=== PATIENT | female | born 1985 ===

== ENCOUNTER 2020-07-02 11:57 | Emergency (ER) | payer MEDICARE, OTHER, SELFPAY ==
[2020-07-02] VITALS (7 sets, daily range): BP systolic 149–228; BP diastolic 92–124; PULSE 54–62; RESP 12–18; TEMP 36.9; O2SAT 96–100; BMI 27.4
--- NOTE | ~2020-07-02 | XR_ITS ---
EXAMINATION: XR CHEST CLINICAL INFORMATION: Cough. COMPARISON: Chest x-ray 12/30/2017 TECHNIQUE: Frontal view of the chest was obtained. FINDINGS: No significant abnormality is noted involving the heart, lungs, mediastinum, bony thorax or soft tissues. XR/XR chest 1V IMPRESSION: Unremarkable chest examination.
[2020-07-02 12:23] LABS: Glucose Urine UA NEG (NEG); Leukocyte Esterase Urine NEG (NEG); Nitrite Urine NEG (NEG); PH 6.5 (5.0-8.0); Specific Gravity - Urine <= 1.005 (1.005-1.025); Urine Blood NEG (NEG); Urine Ketones NEG (NEG); Urine Protein NEG (NEG-TRACE)
[2020-07-02 12:27] LABS: Appearance Urine CLEAR; Color Urine YELLOW; UPreg QC Valid YES; Urine Pregnancy NEGATIVE (NEGATIVE)
--- NOTE | 2020-07-02 12:49 | PC.NURSE ---
Pt reports SOB. Lung sounds clear b/l, rr even and unlabored, spo2 wnl, speaks in clear and full sentences. Diogo aware of pt status and vs.
--- NOTE | 2020-07-02 13:15 | ECG_ITS ---
Test Reason : HYPERTENSION Blood Pressure : / mmHG Vent. Rate : 048 BPM Atrial Rate : 048 BPM P-R Int : 158 ms QRS Dur : 080 ms QT Int : 434 ms P-R-T Axes : 055 055 037 degrees QTc Int : 387 ms Sinus bradycardia Otherwise normal ECG When compared with ECG of 15-OCT-2013 09:46, No significant change was found Referred By: Diogo Ornelas Electronically Signed By:NEYDA FERRARI MD
[2020-07-02 13:39] LABS: MANUAL DIFF FLAG NO
[2020-07-02 13:46] LABS: INTERNATIONAL NORM RATIO 1.1 (0.9-1.1); Prothrombin Time 13.4 SEC (10.8-13.0)
[2020-07-02 13:47] LABS: Eosinophils Percent Auto 0.3 % (0-4); Hematocrit 40.4 % (37-47); Hemoglobin 13.4 g/dl (12.0-16.0); Lymphocytes Absolute Auto 2.1 X10*3/uL (1.2-4.9); Lymphocytes Percent Auto 54.1 % (20-40); Mean Corpuscular HGB Conc 33.2 g/dl (31.0-35.0); Mean Corpuscular Hemoglobin 28.8 pg (27.0-33.0); Mean Corpuscular Volume 86.7 fL (80-98); Mean Platelet Volume 10.7 fL (9.4-12.3); Monocytes Absolute Auto 0.3 X10*3/uL (0.1-1.2); Monocytes Percent Auto 7.5 % (2-11); Neutrophils Absolute Auto 1.4 X10*3/uL (2.0-8.3); Neutrophils Percent Auto 37.1 % (45-73); Platelet Count 238 X10*3/uL (160-400); Red Blood Count 4.66 X10*6/uL (4.20-5.50); Red Cell Distribution Width 13.9 % (11.0-16.0); White Blood Count 3.9 X10*3/uL (4.8-10.8)
[2020-07-02 13:49] LABS: Partial Thromboplastin Time 36.7 SEC (24.1-38.0)
[2020-07-02 14:17] LABS: Alanine Aminotransferase 11 U/L (0-31); Albumin Level 4.6 g/dL (3.5-5.0); Alkaline Phosphatase 88 U/L (39-117); Aspartate Amino Transferase 14 U/L (5-31); Bilirubin Total 0.4 mg/dL (0.0-1.0); Blood Urea Nitrogen 7 mg/dL (9-16); Calcium 9.2 mg/dL (8.4-10.2); Creatinine Clr Calc Pharmacy 85.3; Estimated Glomerular Filt Rate > 60; Glucose Random 92 mg/dL (60-115); Total Protein 7.4 g/dL (6.5-8.0)
[2020-07-02 14:29] LABS: Anion Gap 10 (12-20); Carbon Dioxide 29 mmol/L (22-29); Chloride 105 mmol/L (96-108); Sodium 140 mmol/L (135-145)
--- NOTE | 2020-07-02 15:16 | ED_ITS ---
HPI - General Adult General Chief complaint: General Medical Stated complaint: hbp Time Seen by Provider: 07/02/20 12:04 Source: patient Mode of arrival: ambulatory Limitations: no limitations History of Present Illness HPI narrative: Pleasant 35-year-old female with history of hypertension on clonidine and lisinopril she reports to me that she has had a cough that became more productive does she went to her PCP office and had her blood pressure checked there and was elevated systolic 200s over diastolic 110 and she states previous to this a week ago she has had some runny nose and congestion she went to urgent care she was given nasal spray and decongestant for her symptoms as her COVID test at that time was negative. At the primary care doctor office they noted the elevated blood pressure and was advised to come to the ED. patient herself states that she has not been compliant with her blood pressure medication for about a month now because she does not feel they help him any and could be reason why her blood pressure is elevated. States she did have some slight headache but mostly contributed to her cold. She otherwise denies any chest pain, shortness of breath, lower extremity swelling, abdominal pain, nausea vomiting diarrhea. No neck pain or fever. Onset (ago): day(s) Radiation: non-radiation Severity: mild Associated symptoms: denies other symptoms Treatments prior to arrival: none Related Data Previous Rx's Medication Instructions Recorded azithromycin [Zithromax Z-Shar] See Rx Instructions .ROUTE 07/02/20 .COMPLEX #6 tab Allergies Allergy/AdvReac Type Severity Reaction Status Date / Time morphine [MORPHINE] Allergy Unknown HIVES Unverified 01/08/20 15:30 Review of Systems Review of Systems: Constitutional: No Weight loss, No Fever, No Chills, No Night Sweats, No Fatigue, No Malaise ENT/Mouth: No Hearing loss, No Ear Pain, No Nasal Congestion, No Sinus Pain, No Hoarseness, No sore throat, No Rhinorrhea, No Swallowing Difficulty Eyes: No Eye Pain, No Swelling, No Redness, No Foreign Body, No Discharge, No Vision Changes Cardiovascular: No Chest Pain, No SOB, No Dyspnea on Exertion, No Orthopnea, No Edema, No Palpitations Respiratory: + Cough, No Sputum, No Wheezing, No Smoke Exposure, No Dyspnea Gastrointestinal: No Nausea, No Vomiting, No Diarrhea, No Constipation, No abdominal Pain, No Hematochezia, No Melena Genitourinary: No Dysuria, No Urinary Frequency, No Hematuria, No Urinary Incontinence, No Urgency, No Flank Pain, No Urinary Flow Changes, No Hesitancy Musculoskeletal: No joint pain, No Myalgias, No Joint Swelling Skin: No Skin Lesions, No rash Neuro: No Weakness, No Numbness, No Paresthesias, No Loss of Consciousness, No Dizziness, No Headache Psych: No Social Issues Heme/Lymph: No Bruising, No Bleeding,No Lymphadenopathy Endocrine: No Polyuria, No Polydipsia, No Temperature Intolerance [facility] Past Medical History Medical History HTN (hypertension) Social History Social History Alcohol intake: never Smoking Status: Never smoker Smoked in Last 30 Days: No Substance Use Type: Marijuana Substance Use Frequency: Occasionally Advance Directives: Yes Advance Directives on File: Yes Advance Directives Date on File: 07/02/20 Physical Exam Vital Signs: Vital Signs: Last Vital Signs Temp 98.4 F 07/02/20 12:07 Pulse 55 07/02/20 15:17 Resp 12 07/02/20 15:17 BP 158/92 H 07/02/20 15:17 Pulse Ox 98 07/02/20 15:17 Body Mass Index 27.4 Reviewed Const: General: cooperative and healthy appearing; No acute distress or intoxicated appearing Nutritional Appearance: average body habitus Orientation/consciousness: patient oriented x3 HENMT: Head: Yes normal to inspection Ears: hearing grossly normal bilaterally Eyes: General: appearance normal, both eyes and all related structures Visual Chery: normal visual chery by confrontation Neck: Neck: Yes normal visual inspection, No positive Brudzinski's sign, No positive Kernig's sign and No tender Thyroid: Thyroid normal Chest: Chest palpation & inspection: normal inspection of the chest Resp: Effort & Inspection: normal respiratory effort Auscultation: clear to auscultation bilaterally Cardio: Jugular venous distension: no JVD Rhythm: regular rhythm Heart sounds: S1 normal heart sound present and S2 normal heart sound present GI: Inspection: Yes normal to inspection Palpation (GI): Soft to palpation Percussion: Yes normal to percussion Auscultation: normal bowel sounds : General: Yes no CVA tenderness Back/Spine/Pelvis: Back: no CVA tenderness Skin: General skin exam: no rashes or lesions noted Neuro: General: patient oriented x3 Extrem: General: Yes normal to inspection Course Course Course Narrative: Reevaluation(s) Reevaluation #1: Initial blood pressure on arrival 220/124 however she has no complaints of headache or any other complaints and blood pressure on recheck without intervention was 158/92 and subsequently same readings. Lab work otherwise stable, repeat blood pressure stable as. Chest x-ray negative COVID swab negative. She does have productive cough going on for 1 week will give her Z-Shar she already has albuterol inhaler. Advised to stop using nasal decongestants and cough medicine as this can also increase her blood pressure. She otherwise feels comfortable in no acute distress no complaints of pain or discomfort. She will resume her lisinopril and clonidine as previously prescribed by her primary care doctor she has 1 refill left on these and will keep a blood pressure log and follow up with her primary care doctor. Medical Decision Making Lab Data Result diagrams: 07/02/20 13:32 07/02/20 13:32 Labs: Lab Results 07/02/20 07/02/20 07/02/20 Range/Units 12:04 12:04 13:32 WBC 3.9 L (4.8-10.8) X10*3/uL RBC 4.66 (4.20-5.50) X10*6/uL Hgb 13.4 (12.0-16.0) g/dl Hct 40.4 (37-47) % MCV 86.7 (80-98) fL MCH 28.8 (27.0-33.0) pg MCHC 33.2 (31.0-35.0) g/dl RDW 13.9 (11.0-16.0) % Plt Count 238 (160-400) X10*3/uL MPV 10.7 (9.4-12.3) fL Immature Gran % (Auto) 0.0 (0.0-0.4) % Neut % (Auto) 37.1 L (45-73) % Lymph % (Auto) 54.1 H (20-40) % [place] % (Auto) 7.5 (2-11) % Eos % (Auto) 0.3 (0-4) % Baso % (Auto) 1.0 (0-2) % Lymph # (Auto) 2.1 (1.2-4.9) X10*3/uL [place] # (Auto) 0.3 (0.1-1.2) X10*3/uL Eos # (Auto) 0.0 (0.0-0.4) X10*3/uL Baso # (Auto) 0.0 (0.0-0.2) X10*3/uL Abs Immat Gran (auto) 0.00 (0.00-0.03) X10*3/uL Absolute Neuts (auto) 1.4 L (2.0-8.3) X10*3/uL Absolute Nucleated RBC 0.000 (0.0-0.012) X10*3/uL Nucleated RBC % (auto) 0.0 (0.0-0.2) /100WBC PT (10.8-13.0) SEC INR (0.9-1.1) APTT (24.1-38.0) SEC Sodium (135-145) mmol/L Potassium (3.3-5.1) mmol/L Chloride (96-108) mmol/L Carbon Dioxide (22-29) mmol/L Anion Gap (12-20) BUN (9-16) mg/dL Creatinine (0.5-1.4) mg/dL Estim Creat Clear Calc Estimated GFR Random Glucose (60-115) mg/dL Calcium (8.4-10.2) mg/dL Total Bilirubin (0.0-1.0) mg/dL AST (5-31) U/L ALT (0-31) U/L Alkaline Phosphatase (39-117) U/L Total Protein (6.5-8.0) g/dL Albumin (3.5-5.0) g/dL Urine Color YELLOW Urine Appearance CLEAR Urine pH 6.5 (5.0-8.0) Ur Specific [place] <= 1.005 (1.005-1.025) Urine Protein NEG (NEG-TRACE) MG/DL Urine Glucose (UA) NEG (NEG) MG/DL Urine Ketones NEG (NEG) MG/DL Urine Blood NEG (NEG) Urine Nitrite NEG (NEG) Ur Leukocyte Esterase NEG (NEG) Urine Test NEGATIVE (NEGATIVE) 03/12/21 03/12/21 Range/Units 13:32 13:32 WBC (4.8-10.8) X10*3/uL RBC (4.20-5.50) X10*6/uL Hgb (12.0-16.0) g/dl Hct (37-47) % MCV (80-98) fL MCH (27.0-33.0) pg MCHC (31.0-35.0) g/dl RDW (11.0-16.0) % Plt Count (160-400) X10*3/uL MPV (9.4-12.3) fL Immature Gran % (Auto) (0.0-0.4) % Neut % (Auto) (45-73) % Lymph % (Auto) (20-40) % [place] % (Auto) (2-11) % Eos % (Auto) (0-4) % Baso % (Auto) (0-2) % Lymph # (Auto) (1.2-4.9) X10*3/uL [place] # (Auto) (0.1-1.2) X10*3/uL Eos # (Auto) (0.0-0.4) X10*3/uL Baso # (Auto) (0.0-0.2) X10*3/uL Abs Immat Gran (auto) (0.00-0.03) X10*3/uL Absolute Neuts (auto) (2.0-8.3) X10*3/uL Absolute Nucleated RBC (0.0-0.012) X10*3/uL Nucleated RBC % (auto) (0.0-0.2) /100WBC PT 13.4 H (10.8-13.0) SEC INR 1.1 (0.9-1.1) APTT 36.7 (24.1-38.0) SEC Sodium 140 (135-145) mmol/L Potassium 4.0 (3.3-5.1) mmol/L Chloride 105 (96-108) mmol/L Carbon Dioxide 29 (22-29) mmol/L Anion Gap 10 L (12-20) BUN 7 L (9-16) mg/dL Creatinine 0.89 (0.5-1.4) mg/dL Estim Creat Clear Calc 85.3 Estimated GFR > 60 Random Glucose 92 (60-115) mg/dL Calcium 9.2 (8.4-10.2) mg/dL Total Bilirubin 0.4 (0.0-1.0) mg/dL AST 14 (5-31) U/L ALT 11 (0-31) U/L Alkaline Phosphatase 88 (39-117) U/L Total Protein 7.4 (6.5-8.0) g/dL Albumin 4.6 (3.5-5.0) g/dL Urine Color Urine Appearance Urine pH (5.0-8.0) Ur Specific [place] (1.005-1.025) Urine Protein (NEG-TRACE) MG/DL Urine Glucose (UA) (NEG) MG/DL Urine Ketones (NEG) MG/DL Urine Blood (NEG) Urine Nitrite (NEG) Ur Leukocyte Esterase (NEG) Urine Test (NEGATIVE) Imaging Data Chest x-ray: Radiologist's impression: [address] [id number] ReportSigned Patient: Monster iVllafana#: [id number]: 1985Acct:[id number]/Sex: 35 / FADM Date: 07/02/20Loc: EDAttending Dr: Ordering Physician: Diogo Ornelas NP Date of Service: 07/02/20 Procedure(s): XR chest 1V Accession Number(s): [id number] cc: Diogo Ornelas NP~ EXAMINATION: XR CHEST CLINICAL INFORMATION: Cough. COMPARISON: Chest x-ray 12/30/2017 TECHNIQUE: Frontal view of the chest was obtained. FINDINGS: No significant abnormality is noted involving the heart, lungs, mediastinum, bony thorax or soft tissues. XR/XR chest 1V IMPRESSION: Unremarkable chest examination. 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[facility] [place] Data Interpretation: Sinus bradycardia Rate 48 Otherwise normal ECG When compared with ECG of 15-OCT-2013 09:46, No significant change was found Discharge Plan Discharge Clinical Impression: Hypertension, Bronchitis Patient Disposition: Home, Self-Care Instructions: Acute Bronchitis (ED), Hypertension (ED), Mediterranean Diet (DC) Additional Instructions: Your workup was overall stable, chest x-ray negative, COVID test negative Drink plenty of fluids Well-balanced diet Start taking your blood pressure medication as prescribed as certain decongestants can increase your blood pressure Keep a blood pressure log Do not use [id number] cold medicine Return if any concerns or worsening symptoms Follow-up with her primary care doctor in 1 week for recheck Thank you Prescriptions: New azithromycin [Zithromax Z-Shar] 250 mg tablet See Rx Instructions .ROUTE .COMPLEX Qty: 6 RF: 0 Referrals: Linda Fausitn MD [Primary Care Provider] - 5 days
== END 2020-07-02 15:52 | disposition home or self-care (01) ==
PROVIDERS: Nurse Practitioner Primary Care; Emergency Provider Emergency Medicine Emergency Medical Services; PCP Student in an Organized Health Care Education/Training Program
DX: J20.9 Acute bronchitis, unspecified (principal); I10 Essential (primary) hypertension; F12.90 Cannabis use, unspecified, uncomplicated
CPT/HCPCS: 36415; 71045; 80053; 81003; 81025; 85025; 85610; 85730; 93005; 99283; 99284

== ENCOUNTER 2020-07-23 10:20 | Outpatient (REF) | payer MEDICARE, OTHER, SELFPAY ==
[2020-07-23 14:26] LABS: SARS COV2 PCR INHOUSE NEGATIVE (Negative)
== END 2020-07-23 10:21 | disposition home or self-care (01) ==
LOC: HO.LAB 10:20
PROVIDERS: Visit Provider Internal Medicine
DX: Z20.822 Contact with and (suspected) exposure to COVID-19 (principal)
CPT/HCPCS: C9803; U0003

== ENCOUNTER 2020-08-12 16:03 | Outpatient (REF) | payer MEDICARE, OTHER, SELFPAY ==
--- NOTE | ~2020-08-12 | US_ITS ---
EXAMINATION:US pelvic and transvaginal CLINICAL INFORMATION: Reason for Exam DYSPAREUNIA, FREQ AND EXCESSIVE MENSES COMPARISON: No priors available. LMP: July 11 FINDINGS: UTERUS: The uterus is anteverted. Size: 8 x 3.2 x 4.4 cm. Uterine mass: There is no uterine mass. Cervix: There are nabothian cysts Otherwise Grossly unremarkable. Endometrium: No ultrasound evidence of endometrial lesion. endometrial thickness measures 1.1 cm hypertrophic ADNEXA: Normal Right ovary: Normal in size. Left ovary: Mildly complex cystic structure in the left ovary measure up to 4.4 x 3.9 x 5.1 cm, there is septation. Doppler exam: Normal Doppler flow identified in both ovaries. FREE FLUID: Trace amount of fluid around the ovaries likely physiologic. OTHER FINDINGS: None US/US pelvic and transvaginal IMPRESSION: Mildly complex septated cyst left ovary 5.1 cm. Follow-up recommended. Ultrasound otherwise normal. In women who undergo transvaginal ultrasound (TVUS) imaging of adnexal masses, benign ovarian and other adnexal cysts are commonly detected, leading to follow-up sonographic evaluation and, often, patient anxiety. In 2010 the Society of Radiologists in Ultrasound convened a panel of gynecologists, radiologists, and pathologists to develop a consensus statement encompassing characteristic imaging findings for various adnexal cysts as well as follow-up recommendations. Highlights of the statement are as follows: Simple cysts (reproductive age) * Follicles <3 cm in diameter are considered normal. * Cysts <5 cm: follow-up not required. * Cysts >5 to <7 cm: annual follow-up recommended. Simple cysts (postmenopausal) * Cysts <1 cm are considered clinically unimportant. * Simple cysts of any size are highly likely to be benign, but annual sonographic follow-up of cysts >1 cm is reasonable. Simple cysts >7 cm (any age) * Further imaging (e.g., magnetic resonance imaging) or surgical evaluation should be considered. Thin-walled cysts with single thin septation or focal calcification in mckenzie * Follow-up similar to that for simple cysts based on size and menopausal status. Hemorrhagic cysts (reproductive age) * Cysts <5 cm: No follow-up needed. * Cysts >5 cm: Follow-up in 6 to 12 weeks to ensure resolution. Hemorrhagic cysts (early postmenopause) * Any size: Follow-up in 6 to 12 weeks to ensure resolution. Hemorrhagic cysts (later postmenopausal years) * Any size: Consider surgical evaluation. Endometriomae (any age) * Follow-up in 6 to 12 weeks; if not surgically resected at that time, follow annually. Dermoids (any age) * If not surgically resected, follow annually to ensure stability. Hydrosalpinxes or peritoneal cysts (any age) * Individualized follow-up as clinically indicated. Cysts with characteristics suspicious for malignancy (any age) * If thick (>3 mm) irregular septations or nodule with Doppler-detected blood flow, consider surgical evaluation.
== END 2020-08-12 16:04 | disposition home or self-care (01) ==
LOC: HO.US 16:03
PROVIDERS: Visit Provider Advanced Practice Midwife
DX: N92.1 Excessive and frequent menstruation with irregular cycle (principal); N94.10 Unspecified dyspareunia
CPT/HCPCS: 76830; 76856

== ENCOUNTER → 2020-08-26 09:37 | Outpatient (BNVA) | payer MEDICARE, OTHER, SELFPAY | PROVIDERS: PCP Student in an Organized Health Care Education/Training Program; Visit Provider Internal Medicine Cardiovascular Disease | DX: I10 Essential (primary) hypertension (principal) | CPT/HCPCS: 93005; 99202 ==

== ENCOUNTER 2020-09-02 15:40 | Outpatient (REF) | payer MEDICARE, SELFPAY ==
--- NOTE | ~2020-09-02 | US_ITS ---
EXAMINATION: US PELVIC AND TRANSVAGINAL CLINICAL INFORMATION: Left ovarian cyst. COMPARISON: Previous exam most recent July 2020 TECHNIQUE: Transabdominal and transvaginal pelvic ultrasound was performed. Transvaginal exam was performed for better visualization of the uterus and ovaries. FINDINGS: The uterus is anteverted and measures 7.4 x 3.1 x 4.9 cm in dimension. No focal uterine lesion is seen. There are nabothian cysts in the cervix. The ovaries are slightly enlarged. The right ovary measures 3.7 x 3.7 x 2.1 cm, volume 15 mL and the left ovary measures 3.8 x 3.2 x 2.7 cm, volume 17 mL. The previously identified 4 x 5 cm complex left ovarian cyst on 08/12/2020 exam is no longer seen. There are multiple small peripheral cysts or follicles seen in the ovaries questionable for polycystic ovarian syndrome. There is no fluid in the pelvis. US/US pelvic and transvaginal IMPRESSION: Resolved 4 x 5 cm complex left ovarian cyst from July 2020 exam. The ovaries are slightly enlarged with small peripheral cysts or follicles questionable for polycystic ovarian syndrome.
== END 2020-09-02 15:41 | disposition home or self-care (01) ==
LOC: HO.US 15:40
PROVIDERS: PCP Student in an Organized Health Care Education/Training Program; Visit Provider Advanced Practice Midwife
DX: N83.292 Other ovarian cyst, left side (principal)
CPT/HCPCS: 76830; 76856

== ENCOUNTER 2020-10-15 12:45 | Outpatient (REF) | payer MEDICARE, OTHER, SELFPAY ==
[2020-10-15 14:04] LABS: Anion Gap 11 (12-20); Blood Urea Nitrogen 9 mg/dL (9-16); Calcium 9.4 mg/dL (8.4-10.2); Carbon Dioxide 28 mmol/L (22-29); Chloride 108 mmol/L (96-108); Estimated Glomerular Filt Rate > 60; Glucose Random 89 mg/dL (60-115); Potassium 3.9 mmol/L (3.3-5.1); Sodium 143 mmol/L (135-145)
[2020-10-20 07:11] LABS: Metanephrine, Free 30 pg/mL (<=57); Normetanephrines, Free 130 pg/mL (<=148); Total Metanephrine, Free 160 pg/mL (<=205)
== END 2020-10-15 12:46 | disposition home or self-care (01) ==
LOC: HO.LAB 12:45
PROVIDERS: PCP Student in an Organized Health Care Education/Training Program; Visit Provider Internal Medicine Cardiovascular Disease
DX: I10 Essential (primary) hypertension (principal)
CPT/HCPCS: 36415; 80048; 82088; 83835

== ENCOUNTER → 2020-10-18 09:57 | Outpatient (REF) | payer MEDICARE, OTHER, SELFPAY ==
--- NOTE | 2020-10-18 10:03 | CA_ITS ---
Transthoracic Echocardiogram Patient (Last, First, Middle): Yesenia Villafana, Gender: Female Date of : 1985 Age: 35 Procedure Date: 10/18/2020 Procedure Type: Transthoracic Echocardiogram Location: OP Height: 162.56 cm Weight: 72.58 kg BSA: 1.78 m2 Heart Rate: bpm BP: 130 / 90 mmHg Pharmacy Technician Inpatient: ALEXIS Ivory MD: Yvan Leyva MD Lodging Facilities Attendant: Balwinder Henry MD Symptoms: I10 - Essential (primary) hypertension Study Quality: Good ECG Rhythm: Sinus Conclusions: - 1.Normal LV systolic and diastolic function 2. Mildly dilated left atrium 3. Normal cardiac valvular Doppler 4. Normal RV systolic pressure 5. No pericardial effusion Findings Left Ventricle Normal left ventricular size, thickness, and systolic function. The visually estimated ejection fraction is between 60-65%. Spectral Doppler is indicative of a normal filling pattern. Right Ventricle Normal right ventricular cavity size and systolic function. Atria The left atrium is mildly dilated. There is no evidence of interatrial shunt. The right atrium is normal in size. Aortic Valve Normal aortic valve structure and function. There is no aortic valve stenosis. There is no aortic valve regurgitation. Mitral Valve Normal mitral valve structure and function. There is trace mitral valve regurgitation. There is no mitral valve stenosis. Pulmonic Valve The pulmonic valve is likely normal. There is trace pulmonic valve regurgitation. Tricuspid Valve Normal tricuspid valve structure. There is trace tricuspid valve regurgitation. The right ventricular systolic pressure is normal. The right ventricular systolic pressure is 17 mmHg. Normal right atrial pressure. There is no evidence of pulmonary hypertension. Great Vessels All visible segments of the aorta are normal in size. The pulmonary artery was not well visualized. Venous The inferior vena cava is normal in size and collapses greater than 50% with inspiration. Pericardium/Pleural There is no evidence of pericardial effusion. Prior Study Comparison No prior study available for comparison. Measurements 2D Linear Measurements IVSd: 0.99 0.6-0.9/0.6-1.0 cm LVIDd: 4.65 3.9-5.3/4.2-5.9 cm LVIDd Index: 2.61 2.4-3.2/2.2-3.1 cm/m2 LVIDs: 2.99 2.0-3.6 cm LVPWd: 0.87 0.7-1.1 cm Ao Root: 3.00 2.1-3.5 cm LA Diam: 3.80 2.7-3.8/3.0-4.0 cm LAIDs Index: 2.13 1.5-2.3 cm/m2 LV Mass: 182.63 67-162/88-224 g LV Mass Index: 102.60 43-95/49-115 g/m2 LVOT Diam: 2.10 3.0+(-)1.3 cm Mitral Valve MV Pk E: 0.75 MV PK A: 0.53 MV Decel Time: 356.00 E/A: 1.40 E'Lateral: 14.80 E'Medial: 10.20 E/E' Med: 7.30 E/E' Lat: 5.00 PHT: 104.00 MVA PHT: 2.12 Decel [place]: 2.10 Aortic Valve AoV Pk Claus: 1.46 AoV Mn Claus: 0.96 AoV VTI: 0.32 AoV Pk Grad: 9.00 Aov Mn Grad: 4.00 KATHRYN Cont.VTI: 2.72 LVOT LVOT Pk Claus: 1.04 LVOT Mn Claus: 0.72 LVOT VTI: 0.25 LVOT Pk Grad: 4.00 LVOT Mn Grad: 2.00 LVOT Diam: 2.10 LVOT Area: 3.46 Diastolic Function MV Pk E: 0.75 MV Pk A: 0.53 E/A: 1.40 E'Medial: 10.20 E/E' Med: 7.30 E' Laterial: 14.80 E/E' Lat: 5.00 Tricuspid Valve TR Pk Claus: 1.90 TR Pk Grad: 14.00 RA Press: 3.00 RVSP: 17.00 Great Vessels Aorta Ao Root-2D: 3.00 2.0-3.7 cm Ao Asc: 3.20 2.1-3.4 cm Ao Arch: 2.70 Updated in Other Vendor System with Status of Final Balwinder Henry MD electronically signed on 10/18/2020 11:38:37 AM with status of Final
== END ==
LOC: HO.CARD 09:57
PROVIDERS: Visit Provider Internal Medicine Cardiovascular Disease
DX: I10 Essential (primary) hypertension (principal)
CPT/HCPCS: 93306

== ENCOUNTER → 2020-11-17 15:53 | Outpatient (BNVA) | payer MEDICARE, OTHER, SELFPAY | PROVIDERS: PCP Student in an Organized Health Care Education/Training Program; Visit Provider Internal Medicine Cardiovascular Disease | DX: I10 Essential (primary) hypertension (principal); Z79.899 Other long term (current) drug therapy | CPT/HCPCS: 99212 ==

== ENCOUNTER 2021-02-22 04:20 | Emergency (ER) | payer MEDICARE, OTHER, SELFPAY ==
--- NOTE | ~2021-02-22 | XR_ITS ---
EXAMINATION: X-RAY LEFT HAND AND LEFT WRIST CLINICAL INFORMATION: Pain, status post fall. COMPARISON: No similar priors. TECHNIQUE: 4 views of the left hand/wrist were obtained. FINDINGS: No evidence of acute fractures or malalignment. Joint spaces are preserved. Carpal rows are maintained. The scapholunate interval appears within normal limits. On the navicular view, no definite fractures are visualized within the scaphoid. No unexpected radiopaque foreign bodies. XR/XR hand wrist LT IMPRESSION: No acute fractures or malalignment.
--- NOTE | ~2021-02-22 | XR_ITS ---
EXAMINATION: X-RAY RIGHT FOREARM X-RAY RIGHT WRIST CLINICAL INFORMATION: Status post fall with pain. COMPARISON: No similar priors. TECHNIQUE: 2 views of the right forearm and 2 views of the right wrist were obtained. FINDINGS: Right forearm: No evidence of acute fractures or malalignment. Joint spaces are preserved. No joint effusion. No unexpected radiopaque foreign bodies. Right wrist: No evidence of acute fractures or malalignment. On the navicular view, no discrete fractures across the scaphoid are identified. Carpal row alignment is preserved. The scapholunate interval is maintained. No unexpected radiopaque foreign bodies. XR/XR forearm RT 2V IMPRESSION: No acute fractures or malalignment within the right forearm nor right wrist.
--- NOTE | ~2021-02-22 | CT_ITS ---
EXAMINATION: CT HEAD WITHOUT CONTRAST CLINICAL INFORMATION: Headache. Diagnosed with bleed on past Sunday now with headache. COMPARISON: 02/20/2021. TECHNIQUE: Contiguous axial imaging was performed from the skull base to vertex without intravenous administration of contrast. This CT examination was performed using dose optimization techniques as appropriate, variously including the following: *Automated exposure control *Adjustment of mA and/or kV according to patient size (this includes techniques or standardized protocols for targeted exams where dose is matched to indication/reason for exam; i.e. extremities or head) *Use of iterative reconstruction technique DLP: 695 mGy-cm FINDINGS: Again seen are foci of intraparenchymal hemorrhage in the left inferior frontal lobe measuring up to edema edge appears slightly increased as compared to prior. No trace left frontal subdural hematoma is again suspected, unchanged as compared to prior. No new parenchymal hemorrhage or new extra-axial blood products are identified. No change in surrounding mass effect effect. No midline shift is seen. Maya to white matter differentiation is well preserved. The ventricles are normal in size. As seen best on coronal images, there is a very subtle fracture of the left orbital roof with a 7 x 8 mm bone fragment which is minimally displaced. Left orbit is otherwise unremarkable. No additional fractures are identified. The mastoid air cells and visualized portions of the paranasal sinuses are well aerated. CT/CT head/brain wo con IMPRESSION: 1. No significant change in the intracranial hemorrhage at the left inferior frontal lobe. Surrounding edema appears slightly increased as compared to prior without other findings of new mass effect or midline shift. No new intraparenchymal hemorrhage. 2. Unchanged subtle fracture of the left orbital roof underlying the aforementioned intraparenchymal hematoma.
--- NOTE | ~2021-02-22 | XR_ITS ---
EXAMINATION: X-RAY RIGHT FOREARM X-RAY RIGHT WRIST CLINICAL INFORMATION: Status post fall with pain. COMPARISON: No similar priors. TECHNIQUE: 2 views of the right forearm and 2 views of the right wrist were obtained. FINDINGS: Right forearm: No evidence of acute fractures or malalignment. Joint spaces are preserved. No joint effusion. No unexpected radiopaque foreign bodies. Right wrist: No evidence of acute fractures or malalignment. On the navicular view, no discrete fractures across the scaphoid are identified. Carpal row alignment is preserved. The scapholunate interval is maintained. No unexpected radiopaque foreign bodies. XR/XR wrist RT min 3V IMPRESSION: No acute fractures or malalignment within the right forearm nor right wrist.
[2021-02-22 04:22] VITALS: BP 155/95; PULSE 53; RESP 18; TEMP 36.6; O2SAT 99; BMI 27.4
--- NOTE | 2021-02-22 04:49 | ECG_ITS ---
Test Reason : SYNCOPE Blood Pressure : / mmHG Vent. Rate : 052 BPM Atrial Rate : 052 BPM P-R Int : 146 ms QRS Dur : 084 ms QT Int : 428 ms P-R-T Axes : 042 035 022 degrees QTc Int : 398 ms Sinus bradycardia Nonspecific T wave abnormality Abnormal ECG When compared with ECG of 02-JUL-2020 13:33, Nonspecific T wave abnormality, worse in Anterior leads Referred By: Bridget Levine Electronically Signed By:ÁNGEL BLANKENSHIP MD
[2021-02-22 05:13] LABS: Basophils Percent Auto 0.7 % (0-2); Eosinophils Percent Auto 0.4 % (0-4); Hematocrit 40.2 % (37.0-47.0); Hemoglobin 13.6 g/dl (12.0-16.0); Imm Gran Abs Auto 0.02 X10*3/uL (0.00-0.03); Imm Gran Pct Auto 0.4 % (0.0-0.4); Lymphocytes Absolute Auto 2.3 X10*3/uL (1.2-4.9); Lymphocytes Percent Auto 43.7 % (20-40); MANUAL DIFF FLAG NO; Mean Corpuscular HGB Conc 33.8 g/dl (31.0-35.0); Mean Corpuscular Hemoglobin 29.3 pg (27.0-33.0); Mean Corpuscular Volume 86.6 fL (80.0-98.0); Mean Platelet Volume 10.3 fL (9.4-12.3); Monocytes Absolute Auto 0.4 X10*3/uL (0.1-1.2); Monocytes Percent Auto 7.7 % (2-11); Neutrophils Absolute Auto 2.52 x10*3/uL (2.0-8.3); Neutrophils Percent Auto 47.1 % (45-73); Platelet Count 279 X10*3/uL (160-400); Red Blood Count 4.64 X10*6/uL (4.20-5.50); Red Cell Distribution Width 14.2 % (11.0-16.0); White Blood Count 5.4 X10*3/uL (4.8-10.8)
[2021-02-22 05:18] LABS: INTERNATIONAL NORM RATIO 1.1 (0.9-1.1); Prothrombin Time 12.3 SEC (9.9-13.0)
[2021-02-22 05:31] LABS: Alanine Aminotransferase 6 U/L (0-31); Albumin Level 4.6 g/dL (3.5-5.0); Alkaline Phosphatase 90 U/L (39-117); Anion Gap 14 (12-20); Aspartate Amino Transferase 14 U/L (5-31); Bilirubin Total 0.6 mg/dL (0.0-1.0); Blood Urea Nitrogen 13 mg/dL (9-16); Calcium 9.4 mg/dL (8.4-10.2); Carbon Dioxide 23 mmol/L (22-29); Chloride 107 mmol/L (96-108); Creatinine Clr Calc Pharmacy 80.8; Estimated Glomerular Filt Rate > 60; Glucose Random 107 mg/dL (60-115); Sodium 140 mmol/L (135-145); Total Protein 7.8 g/dL (6.5-8.0)
[2021-02-22 05:34] LABS: Troponin-I High Sensitivity < 3.5 ng/L (<3.5-17.0)
--- NOTE | 2021-02-22 05:49 | ED.GENADULT ---
HPI - General Adult General Chief complaint: Neck Pain/Injury Stated complaint: Multiple complaints Time Seen by Provider: 02/22/21 04:48 Source: patient Mode of arrival: ambulatory History of Present Illness HPI narrative: 36-year-old female who presents with headache, bilateral arm pain, neck pain and reports nausea as well as some mild dizziness. The symptoms are in the context of her recent syncopal episode that she sustained on Sunday with loss of consciousness and head strike and worked up at . At the time of her workup she was informed that she had a small ?brain bleed? that she was provided an outpatient appointment for on 03/14. Patient states that she has since had arm pain at the right shoulder/right forearm/left wrist. Related Data Home Medications Medication Instructions Recorded Confirmed amlodipine 10 mg tablet 5 mg PO BID tab 08/27/20 11/17/20 Previous Rx's Medication Instructions Recorded labetalol 100 mg tablet 100 mg PO BID #1 tab 08/27/20 cyclobenzaprine 10 mg tablet 10 mg PO BEDTIME PRN #3 tab 02/22/21 Allergies Allergy/AdvReac Type Severity Reaction Status Date / Time morphine [MORPHINE] Allergy Unknown HIVES Verified 11/17/20 15:58 Review of Systems Review of Systems: Pertinent positives and negatives as stated in HPI 10 point review of systems is otherwise negative. [facility] Past Medical History Source: nursing notes reviewed Medical History HTN (hypertension) Family History Family History Mother HTN (hypertension) Father HTN (hypertension) Diabetes Social History Social History Alcohol intake: never Patient Tobacco Use Status: Never used Tobacco Substance Use Type: Marijuana Advance Directives: Yes Advance Directives on File: Yes Advance Directives Date on File: 07/02/20 Patient : No Physical Exam Vital Signs: Vital Signs: Last Vital Signs Temp 98.2 F 02/22/21 07:20 Pulse 54 02/22/21 09:08 Resp 16 02/22/21 09:08 BP 162/97 H 02/22/21 09:08 Pulse Ox 97 02/22/21 09:08 Body Mass Index 27.4 VITAL SIGNS: Reviewed. GENERAL: Well developed, well nourished, in no acute distress. HEAD: Normocephalic/atraumatic EYES: PERRLA, EOMI, ecchymosis of the left upper lid consistent fall and underlying orbital fracture, no palsies noted OROPHARYNX: no oral lesions noted, posterior pharynx clear LUNGS: Normal breath sounds. No adventitious sounds or accessory muscle use. SpO2<97> CARDIOVASCULAR: Regular rate and rhythm without noted murmurs ABDOMEN: Soft, non-tender, non-distended with bowel sounds. MUSCULOSKELETAL: No tenderness, deformities, or effusions noted on gross inspection. EXTREMITIES: No cyanosis, clubbing or edema, but patient complained of pain on palpation over left wrist and right forearm without observed deformity SKIN: Inspection of the skin reveals no rashes NEUROLOGIC: Alert and oriented x 4. Strength and sensation to light touch were grossly intact x 4, no focal deficits noted Course Course Course Narrative: 36-year-old female with longstanding history ?fainting episodes? as per patient who sustained a fall with LOC, intracranial bleed as well as left orbital fracture. Patient is nonfocal at this time and complaints bilateral arm pain have been resolved with combination analgesics as well as a lidocaine patch to the right shoulder and denies any numbness/tingling/weakness to either upper extremity. Patient is otherwise discharged home in stable condition and has appropriate neurology follow-up on 03/14. All results and findings discussed with patient at bedside. Medical Decision Making Lab Data Result diagrams: 02/22/21 05:06 02/22/21 05:06 Labs: Lab Results 02/22/21 02/22/21 02/22/21 Range/Units 05:06 05:06 05:06 WBC 5.4 (4.8-10.8) X10*3/uL RBC 4.64 (4.20-5.50) X10*6/uL Hgb 13.6 (12.0-16.0) g/dl Hct 40.2 (37.0-47.0) % MCV 86.6 (80.0-98.0) fL MCH 29.3 (27.0-33.0) pg MCHC 33.8 (31.0-35.0) g/dl RDW 14.2 (11.0-16.0) % Plt Count 279 (160-400) X10*3/uL MPV 10.3 (9.4-12.3) fL Immature Gran % (Auto) 0.4 (0.0-0.4) % Neut % (Auto) 47.1 (45-73) % Lymph % (Auto) 43.7 H (20-40) % [place] % (Auto) 7.7 (2-11) % Eos % (Auto) 0.4 (0-4) % Baso % (Auto) 0.7 (0-2) % Lymph # (Auto) 2.3 (1.2-4.9) X10*3/uL [place] # (Auto) 0.4 (0.1-1.2) X10*3/uL Eos # (Auto) 0.0 (0.0-0.4) X10*3/uL Baso # (Auto) 0.0 (0.0-0.2) X10*3/uL Abs Immat Gran (auto) 0.02 (0.00-0.03) X10*3/uL Absolute Neuts (auto) 2.52 (2.0-8.3) x10*3/uL Absolute Nucleated RBC 0.000 (0.0-0.012) X10*3/uL Nucleated RBC % (auto) 0.0 (0.0-0.2) /100WBC PT 12.3 (9.9-13.0) SEC INR 1.1 (0.9-1.1) Sodium 140 (135-145) mmol/L Potassium 4.0 (3.3-5.1) mmol/L Chloride 107 (96-108) mmol/L Carbon Dioxide 23 (22-29) mmol/L Anion Gap 14 (12-20) BUN 13 (9-16) mg/dL Creatinine 0.93 (0.5-1.4) mg/dL Estim Creat Clear Calc 80.8 Estimated GFR > 60 Random Glucose 107 (60-115) mg/dL Calcium 9.4 (8.4-10.2) mg/dL Total Bilirubin 0.6 (0.0-1.0) mg/dL AST 14 (5-31) U/L ALT 6 (0-31) U/L Alkaline Phosphatase 90 (39-117) U/L Troponin I High Sens (<3.5-17.0) ng/L Total Protein 7.8 (6.5-8.0) g/dL Albumin 4.6 (3.5-5.0) g/dL Beta HCG, Quant < 2 mIU/mL Urine Color Urine Appearance Urine pH (5.0-8.0) Ur Specific [place] (1.005-1.025) Urine Protein (NEG-TRACE) MG/DL Urine Glucose (UA) (NEG) MG/DL Urine Ketones (NEG) MG/DL Urine Blood (NEG) Urine Nitrite (NEG) Ur Leukocyte Esterase (NEG) Urine RBC (0) /HPF Urine WBC (0-4) /HPF Ur Squamous Epith Cells /LPF Urine Bacteria /LPF Urine Mucus /LPF Urine Test 02/22/21 02/22/21 02/22/21 Range/Units 05:06 06:17 06:17 WBC (4.8-10.8) X10*3/uL RBC (4.20-5.50) X10*6/uL Hgb (12.0-16.0) g/dl Hct (37.0-47.0) % MCV (80.0-98.0) fL MCH (27.0-33.0) pg MCHC (31.0-35.0) g/dl RDW (11.0-16.0) % Plt Count (160-400) X10*3/uL MPV (9.4-12.3) fL Immature Gran % (Auto) (0.0-0.4) % Neut % (Auto) (45-73) % Lymph % (Auto) (20-40) % [place] % (Auto) (2-11) % Eos % (Auto) (0-4) % Baso % (Auto) (0-2) % Lymph # (Auto) (1.2-4.9) X10*3/uL [place] # (Auto) (0.1-1.2) X10*3/uL Eos # (Auto) (0.0-0.4) X10*3/uL Baso # (Auto) (0.0-0.2) X10*3/uL Abs Immat Gran (auto) (0.00-0.03) X10*3/uL Absolute Neuts (auto) (2.0-8.3) x10*3/uL Absolute Nucleated RBC (0.0-0.012) X10*3/uL Nucleated RBC % (auto) (0.0-0.2) /100WBC PT (9.9-13.0) SEC INR (0.9-1.1) Sodium (135-145) mmol/L Potassium (3.3-5.1) mmol/L Chloride (96-108) mmol/L Carbon Dioxide (22-29) mmol/L Anion Gap (12-20) BUN (9-16) mg/dL Creatinine (0.5-1.4) mg/dL Estim Creat Clear Calc Estimated GFR Random Glucose (60-115) mg/dL Calcium (8.4-10.2) mg/dL Total Bilirubin (0.0-1.0) mg/dL AST (5-31) U/L ALT (0-31) U/L Alkaline Phosphatase (39-117) U/L Troponin I High Sens < 3.5 (<3.5-17.0) ng/L Total Protein (6.5-8.0) g/dL Albumin (3.5-5.0) g/dL Beta HCG, Quant mIU/mL Urine Color RED Urine Appearance CLOUDY Urine pH 5.5 (5.0-8.0) Ur Specific [place] 1.025 (1.005-1.025) Urine Protein 2+ H (NEG-TRACE) MG/DL Urine Glucose (UA) NEG (NEG) MG/DL Urine Ketones >=80 (NEG) MG/DL Urine Blood 3+ H (NEG) Urine Nitrite POS H (NEG) Ur Leukocyte Esterase NEG (NEG) Urine RBC 76-150 H (0) /HPF Urine WBC 0-2 (0-4) /HPF Ur Squamous Epith Cells 1+ /LPF Urine Bacteria TRACE /LPF Urine Mucus 4+ /LPF Urine Test Cancelled ECG Data Attestation: I personally reviewed and interpreted this ECG as follows: Prior ECG tracings: available for review (07/02/2020 no acute changes on comparison) Interpretation: Sinus bradycardia, HR-52, no STEMI, DC/QRS/QTC are within normal limits. Discharge Plan Discharge Clinical Impression: History of intracranial hemorrhage, Fracture of left orbit Patient Disposition: Home, Self-Care Instructions: Facial Fracture (ED) Additional Instructions: 1. Resume all home medications as prescribed. 2. Tylenol 1000 mg, orally, every 6 hours as needed for pain control. Do not exceed 4000 mg within 24 hours. 3. Lidocaine patch, this is available [id number] and should be apply to area of maximal tenderness as directed on the outside packaging. 4. Follow-up with neurology as scheduled on 03/14. 5. Follow-up with your primary care provider in the next 1-2 days for re-evaluation and further outpatient management. Return to the ER for worsening of your symptoms. Prescriptions: New cyclobenzaprine 10 mg tablet 10 mg PO BEDTIME PRN (Reason: muscle spasm) Qty: 3 RF: 0 No Action amlodipine 10 mg tablet 5 mg PO BID RF: 0 labetalol 100 mg tablet 100 mg PO BID Qty: 1 RF: 0
[2021-02-22 05:53] LABS: HCG Quantitative < 2 mIU/mL
[2021-02-22] MEDS: Acetaminophen 325 MG TABLET 975 MG PO (06:15)
[2021-02-22 06:26] LABS: Appearance Urine CLOUDY; Color Urine RED; Glucose Urine UA NEG (NEG); Leukocyte Esterase Urine NEG (NEG); PH 5.5 (5.0-8.0); Specific Gravity - Urine 1.025 (1.005-1.025); UACC Culture Trigger YES; Urine Blood 3+ (NEG); Urine Ketones >=80 MG/DL (NEG); Urine Protein 2+ MG/DL (NEG-TRACE)
[2021-02-22 06:27] LABS: Nitrite Urine POS (NEG)
[2021-02-22 06:39] LABS: Bacteria Urine TRACE /LPF; Mucus Urine 4+ /LPF; Squamous Epithelial Cell Urine 1+ /LPF; WBC Urine 0-2 /HPF (0-4)
[2021-02-22 07:20] VITALS: BP 142/76; PULSE 50; RESP 18; TEMP 36.8; O2SAT 97
[2021-02-22] MEDS: Cyclobenzaprine HCl 5 MG TABLET PO (07:32)
[2021-02-22] MEDS: Lidocaine 4 % Patch ADH..PATCH 1 PATCH TRANSDERMA (07:33)
[2021-02-22 09:08] VITALS: BP 162/97; PULSE 54; RESP 16; O2SAT 97
--- NOTE | 2021-02-22 09:14 | PC.NURSE ---
This RN to bedside to assess VS and obtained lynn swab. Swab obtained, sent to lab. Pt denies pain/discomfort but reports nausea. Dr Levine made aware.
[2021-02-22] MEDS: ondansetron HCL 4 MG/2 ML VIAL IVPUSH (09:17)
[2021-02-22 09:19] VITALS: BP 154/80; PULSE 52
[2021-02-22 09:21] VITALS: BP 141/94; PULSE 56
[2021-02-22 09:22] VITALS: BP 144/100; PULSE 63
[2021-02-22 09:38] LABS: COVID-19 Test Negative (Negative)
== END 2021-02-22 10:07 | disposition home or self-care (01) ==
PROVIDERS: Emergency Provider Student in an Organized Health Care Education/Training Program
DX: S02.85XA Fracture of orbit, unspecified, initial encounter for closed fracture (principal); R55 Syncope and collapse; M79.601 Pain in right arm; F12.90 Cannabis use, unspecified, uncomplicated; W01.0XXA Fall on same level from slipping, tripping and stumbling without subsequent striking against object, initial encounter; Y93.9 Activity, unspecified; Y92.9 Unspecified place or not applicable; Y99.9 Unspecified external cause status; Z20.822 Contact with and (suspected) exposure to COVID-19; Z79.899 Other long term (current) drug therapy
CPT/HCPCS: 36415; 70450; 73090; 73110; 73130; 80053; 81001; 84484; 84702; 85025; 85610; 87086; 87635; 93005; 96374; 99284; J2405

== ENCOUNTER 2021-03-16 13:06 | Outpatient (REF) | payer MEDICARE, OTHER, SELFPAY ==
--- NOTE | 2021-03-16 13:15 | EEG_ITS ---
The waking background activity consists of low voltage fast frequencies seen diffusely, intermixed with low voltage posterior 9 to 10 hertz alpha frequency. Drowsiness is characterized by diffuse 6 to 7 hertz theta. A few instances of left frontotemporal sharp configuration delta discharges were seen without any associated clinical symptoms. Photic stimulation is without activation. Hyperventilation was omitted. IMPRESSION: This EEG is considered minimally abnormal due to occasional sharp configuration discharges from the left frontal region. These findings may suggest an underlying focus of cerebral irritability but are not developed well enough to be diagnostic for a seizure disorder. If clinically indicated, a 24-hour ambulatory EEG is recommended. MD CAREN Taylor/ZHEN / [id number]
== END 2021-03-16 13:07 | disposition home or self-care (01) ==
LOC: HO.NEURO 13:06
PROVIDERS: Visit Provider Student in an Organized Health Care Education/Training Program
DX: R40.20 Unspecified coma (principal)
CPT/HCPCS: 95816

== ENCOUNTER → 2021-05-19 15:08 | Outpatient (BNVA) | payer MEDICARE, MEDICAID, SELFPAY | PROVIDERS: Visit Provider Internal Medicine Cardiovascular Disease | DX: R55 Syncope and collapse (principal); I10 Essential (primary) hypertension; Z79.899 Other long term (current) drug therapy | CPT/HCPCS: 99212 ==

== ENCOUNTER → 2021-06-29 10:35 | Outpatient (REF) | payer MEDICARE, MEDICAID, SELFPAY ==
--- NOTE | 2021-06-29 10:40 | CA_ITS ---
Transthoracic Echocardiogram Patient (Last, First, Middle): Yesenia Villafana, Gender: Female Date of : 1985 Age: 36 Procedure Date: 06/29/2021 Procedure Type: Transthoracic Echocardiogram Location: OP Height: 162.56 cm Weight: 78.02 kg BSA: 1.83 m2 Heart Rate: bpm BP: 122 / 60 mmHg Texture Artist: Referring MD: Yvan Leyva MD Symptoms: R55 - Syncope and collapse Study Quality: Good ECG Rhythm: Sinus Conclusions: - Normal left ventricular size and systolic function. - Diastolic function is normal for age. - Normal right ventricular cavity size and systolic function. - There is mild dilatation of the ascending aorta measuring 3.30 cm. Findings Left Ventricle Normal left ventricular size and systolic function. There is mildly increased left ventricular wall thickness. The visually estimated ejection fraction is between 60-65%. There is no evidence of regional wall motion abnormalities. Diastolic function is normal for age. Right Ventricle Normal right ventricular cavity size and systolic function. Atria Both atria are normal in size. Aortic Valve Normal aortic valve structure and function. There is no aortic valve stenosis. There is no aortic valve regurgitation. Mitral Valve Normal mitral valve structure and function. There is trace mitral valve regurgitation. There is no mitral valve stenosis. Pulmonic Valve Normal pulmonic valve structure and function. There is trace pulmonic valve regurgitation. Tricuspid Valve Normal tricuspid valve structure and function. There is trace tricuspid valve regurgitation. Normal right atrial pressure. There is no evidence of pulmonary hypertension. Great Vessels There is mild dilatation of the ascending aorta measuring 3.30 cm. The visualized portions of the pulmonary artery and branches are normal. Venous The inferior vena cava is normal in size and collapses greater than 50% with inspiration. Pericardium/Pleural There is no evidence of pericardial effusion. Prior Study Comparison Changes noted compared to prior study dated: 10/18/2020. Mildly increased left ventricular wall thickness. Mildly dilated ascending aorta 3.3. cm. Measurements 2D Linear Measurements IVSd: 1.08 0.6-0.9/0.6-1.0 cm LVIDd: 5.01 3.9-5.3/4.2-5.9 cm LVIDd Index: 2.74 2.4-3.2/2.2-3.1 cm/m2 LVIDs: 3.14 2.0-3.6 cm LVPWd: 1.12 0.7-1.1 cm LA Diam: 3.90 2.7-3.8/3.0-4.0 cm LAIDs Index: 2.13 1.5-2.3 cm/m2 LV Mass: 259.02 67-162/88-224 g LV Mass Index: 141.54 43-95/49-115 g/m2 LVOT Diam: 2.00 3.0+(-)1.3 cm Mitral Valve MV Pk E: 0.83 MV PK A: 0.72 MV Decel Time: 220.00 E/A: 1.20 E'Lateral: 9.68 E'Medial: 7.94 E/E' Med: 10.50 E/E' Lat: 8.60 PHT: 65.00 MVA PHT: 3.38 Decel Webb: 3.77 Aortic Valve AoV Pk Claus: 1.39 AoV Mn Claus: 1.01 AoV VTI: 0.34 AoV Pk Grad: 8.00 Aov Mn Grad: 5.00 KATHRYN Cont.VTI: 2.24 LVOT LVOT Pk Claus: 0.95 LVOT Mn Claus: 0.68 LVOT VTI: 0.24 LVOT Pk Grad: 4.00 LVOT Mn Grad: 2.00 LVOT Diam: 2.00 LVOT Area: 3.14 Diastolic Function MV Pk E: 0.83 MV Pk A: 0.72 E/A: 1.20 E'Medial: 7.94 E/E' Med: 10.50 E' Laterial: 9.68 E/E' Lat: 8.60 Right Ventricle TAPSE (mm): 30.00 TVS' Claus: 13.00 Tricuspid Valve TR Pk Claus: 1.59 TR Pk Grad: 10.00 RA Press: 3.00 RVSP: 13.00 Great Vessels Aorta Ao Asc: 3.30 2.1-3.4 cm Pulmonary Valve PV Pk Claus: 1.26 Peak PV Grad: 6.00 Updated in Other Vendor System with Status of Final Yvan Leyva MD electronically signed on 06/29/2021 1:34:28 PM with status of Final
== END ==
LOC: HO.CARD 10:35
PROVIDERS: PCP Student in an Organized Health Care Education/Training Program; Visit Provider Internal Medicine Cardiovascular Disease
DX: R55 Syncope and collapse (principal)
CPT/HCPCS: 93306

== ENCOUNTER → 2021-09-15 15:31 | Outpatient (BNVA) | payer OTHER, MEDICAID, SELFPAY | PROVIDERS: PCP Student in an Organized Health Care Education/Training Program; Visit Provider Internal Medicine Cardiovascular Disease | DX: I10 Essential (primary) hypertension (principal); Z79.899 Other long term (current) drug therapy | CPT/HCPCS: 99212 ==

== ENCOUNTER 2021-10-17 10:44 | Outpatient (REF) | payer OTHER, MEDICAID, SELFPAY ==
--- NOTE | ~2021-10-17 | US_ITS ---
EXAMINATION: US PELVIS CLINICAL INFORMATION: Abnormal uterine bleeding COMPARISON: Previous exams most recent June 2020 TECHNIQUE: Ultrasound of the pelvis is performed using both transabdominal and transvaginal transducers along with Doppler. Transvaginal imaging is performed due to inadequate visualization transabdominally. FINDINGS: The uterus is anteverted and measures 7.9 x 3.3 x 4.9 cm in dimension. No focal uterine lesion is seen. Endometrial thickness is normal measuring 4.8 cm. There is a small nabothian cysts in the cervix. The right ovary is slightly enlarged measuring 4.3 x 3.1 x 3.5 cm, volume 25 mL. There are multiple peripheral small simple cysts or follicles. There is a 1.3 cm complex cyst in the right ovary. The left ovary is upper normal in size measuring 3.7 x 2.3 x 3.4 cm, volume 15 mL. There are multiple small peripheral cysts or follicles. There is a small amount of fluid in the pelvis. US/US pelvic and transvaginal IMPRESSION: Polycystic appearance of the ovaries.
== END 2021-10-17 10:45 | disposition home or self-care (01) ==
LOC: HO.HMGCX 10:44
PROVIDERS: PCP Student in an Organized Health Care Education/Training Program; Visit Provider Advanced Practice Midwife
DX: R10.32 Left lower quadrant pain (principal); N93.9 Abnormal uterine and vaginal bleeding, unspecified
CPT/HCPCS: 76830; 76856

== ENCOUNTER 2021-11-14 11:27 | Emergency (ER) | payer OTHER, MEDICAID, SELFPAY ==
[2021-11-14 11:48] VITALS: BP 148/93; PULSE 62; RESP 18; TEMP 37.2; O2SAT 100; BMI 28.3
== END 2021-11-14 13:47 | disposition left against medical advice (07) ==
PROVIDERS: Emergency Provider Emergency Medicine
DX: R07.0 Pain in throat (principal)
CPT/HCPCS: 99281

== ENCOUNTER 2022-02-22 11:46 | Emergency (ER) | payer OTHER, MEDICAID, SELFPAY ==
--- NOTE | ~2022-02-22 | XR_ITS ---
EXAMINATION: XR CHEST CLINICAL INFORMATION: Chest pain COMPARISON: 07/02/20 TECHNIQUE: 2 views of the chest were obtained. FINDINGS: The lungs are well expanded. There is no focal consolidation, edema, or effusion. No pneumothorax. The cardiomediastinal silhouette is within normal limits. No acute osseous abnormality. XR/XR chest 2V IMPRESSION: Clear lungs.
[2022-02-22 12:28] VITALS: BP 122/73; PULSE 58; RESP 18; TEMP 37.1; O2SAT 100; BMI 28.3
--- NOTE | 2022-02-22 13:35 | ED_ITS ---
HPI - URI/Sore Throat General Chief Complaint: Upper Respiratory Symptoms Stated Complaint: CP, sore throat Time Seen by Provider: 02/22/22 12:53 Source: patient Mode of arrival: ambulatory Limitations: no limitations History of Present Illness HPI Narrative: 37-year-old female with history of hypertension presents with 2 weeks of chest congestion and cough which is brown in color. No fevers, chills, difficulty breathing or chest pain. Related Data Home Medications Medication Instructions Recorded Confirmed amlodipine 10 mg tablet 5 mg PO BID 08/27/20 09/15/21 Previous Rx's Medication Instructions Recorded labetalol 100 mg tablet 200 mg PO BID #1 tab 05/19/21 albuterol sulfate 90 mcg/actuation 2 inh inhalation Q4H PRN shortness 02/22/22 breath activated powder inhaler of breath or wheezing #1 ea azithromycin 250 mg tablet See Rx Instructions PO .COMPLEX #6 02/22/22 tabs Allergies Allergy/AdvReac Type Severity Reaction Status Date / Time morphine [MORPHINE] Allergy Unknown HIVES Verified 09/15/21 15:37 Review of Systems Review of Systems: Yes all other systems are reviewed and are negative Constitutional: Constitutional: Reports no additional constitutional complaints, Denies body ache(s), Denies chills, Denies fever(s), Denies headache(s) and Denies weakness Eyes: Eyes: Reports no additional eye complaints and Denies change in vision ENT: Reports system reviewed and no additional complaints, except as documented, Denies dizziness, Denies headache(s), Denies nasal congestion, Denies nasal discharge and Denies neck pain Cardiovascular: Cardiovascular: Reports no additional cardiovascular complaints, Denies chest pain, Denies leg edema and Denies dyspnea Respiratory: Respiratory: Reports no additional respiratory complaints, Reports cough and Denies dyspnea Gastrointestinal: Gastrointestinal: Reports no additional gastrointestinal complaints, Denies abdominal pain, Denies diarrhea, Denies nausea and Denies vomiting Genitourinary: Genitourinary: Reports no additional female genitourinary complaints and Denies urinary incontinence Musculoskeletal: Musculoskeletal: Reports no additional musculoskeletal complaints, Denies back pain, Denies arthralgias, Denies joint swelling, Denies neck pain, Denies numbness and Denies tingling Integumentary/Breasts: Skin/Breast: Reports system reviewed and no additional complaints, except as docu and Denies rash Neurologic: Reports system reviewed and no additional complaints, except as documented, Denies Abnormal speech present, Denies dizziness, Denies headache(s), Denies numbness, Denies tingling and Denies weakness PMFSH Past Medical History Attestation statement: The following information was validated with the patient. Source: old records reviewed and nursing notes reviewed Medical History HTN (hypertension) Orbital fracture Surgical History History of neck surgery Family History Family History Mother HTN (hypertension) Father HTN (hypertension) Diabetes Social History Social History Alcohol intake: never Patient Tobacco Use Status: Never used Tobacco Substance Use Type: Marijuana Advance Directives: Yes Advance Directives on File: Yes Advance Directives Date on File: 07/02/20 Physical Exam Vital Signs: Vital Signs: Last Vital Signs Temp 98.7 F 02/22/22 12:28 Pulse 58 02/22/22 12:28 Resp 18 02/22/22 12:28 BP 122/73 02/22/22 12:28 Pulse Ox 100 02/22/22 12:28 BMI result Body Mass Index 28.3 Const: General: cooperative, healthy appearing, comfortable and no acute distress Orientation/consciousness: patient oriented x3 Limitations: no limitations HEENT: Head: Yes normal to inspection Ears: hearing grossly normal bilaterally and TM's normal bilaterally General nose exam: Normal external nose present Face and sinus: Yes normal facial exam Mouth: Normal oral and palatal mucosa present Throat: Yes posterior oropharynx normal, Yes tonsils normal and Yes uvula midline Eyes: General: appearance normal, both eyes and all related structures Pupils: Equal, round and reactive pupils present Neck: Neck: Yes normal visual inspection, Yes full ROM and Yes no lymphadenopathy Chest: Chest palpation & inspection: normal inspection of the chest Resp: Effort & Inspection: normal respiratory effort Auscultation: clear to auscultation bilaterally Cardio: Rate: regular rate Rhythm: regular rhythm Peripheral pulses: Peripheral pulses 2+ throughout GI: Inspection: Yes normal to inspection Palpation (GI): Soft to palpation and nontender Auscultation: normal bowel sounds Back/Spine/Pelvis: Thoracic/Lumbar Spine: thoracic and lumbar spine normal to inspection Skin: General skin exam: no rashes or lesions noted Neuro: General: patient oriented x3, no focal motor deficits and normal sensation to monofilament Cranial nerves: Yes Equal, round and reactive pupils present Cognition (Neuro): normal cognition Speech: No Abnormal speech present Gait exam (Neuro): Normal gait present Motor exam (neuro): 5/5 motor strength present throughout Extrem: General: Yes normal to inspection, Yes no pedal edema and Yes no calf tenderness Course Course Course Narrative: COVID and flu test were negative. Chest x-ray shows no signs of pneumonia. Likely bronchitis. Patient will be treated with course of antibiotics. Reviewed worrisome signs symptoms of when to return to the emergency room. Comfortable discharge home. MDM - URI/Sore Throat MDM Narrative Medical decision making narrative: 37 yo female here with cough/chest congestion x 2 weeks. Will check CXR, covid/flu screen -low concern for PE with no clinical findings concerning for DVT, no hypoxia, no tachypnea, no tachycardia-perc is 0 Medical Records Attestation: I reviewed the patient's medical records. Lab Data Attestation: I reviewed the patient's lab results. Labs: Lab Results 02/22/22 02/22/22 Range/Units 13:44 13:44 COVID-19 ([facility]) Negative (Negative) COVID-19 Clin Com See Note Influenza Type A ([facility]) Negative (Negative) Influenza Type B ([facility]) Negative (Negative) Influenza A & B Note See Note Imaging Data Chest x-ray: Attestation: I personally reviewed and interpreted this imaging study as follows: Radiologist's impression: [address] [address] XRay Report Signed Patient: Yesenia Villafana MR#: [id number] : 1985 Acct:[id number] Age/Sex: 37 / F ADM Date: 02/22/22 Loc: .ED Attending Dr: Ordering Physician: Maci Merchant DO Date of Service: 02/22/22 Procedure(s): XR chest 2V Accession Number(s): [id number] cc: [place],Maci DO~ EXAMINATION: XR CHEST CLINICAL INFORMATION: Chest pain COMPARISON: 07/02/20 TECHNIQUE: 2 views of the chest were obtained. FINDINGS: The lungs are well expanded. There is no focal consolidation, edema, or effusion. No pneumothorax. The cardiomediastinal silhouette is within normal limits. No acute osseous abnormality. XR/XR chest 2V IMPRESSION: Clear lungs. ? Discharge Plan Discharge Clinical Impression: Bronchitis Patient Disposition: Home, Self-Care Instructions: Acute Bronchitis (ED) Additional Instructions: Testing for flu and COVID are negative Take Mucinex daily but in the morning Chest x-ray shows no signs of pneumonia Prescriptions: New albuterol sulfate 90 mcg/actuation aerosol powdr breath activated 2 inh inhalation Q4H PRN (Reason: shortness of breath or wheezing) Qty: 1 0RF azithromycin 250 mg tablet See Rx Instructions .ROUTE .COMPLEX Qty: 6 0RF Rx Instructions: For 250 mg dose pack: take 500 mg today (day 1), then 250 mg for 4 days (days 2-5) No Action amlodipine 10 mg tablet 5 mg PO BID labetalol 100 mg tablet 200 mg PO BID Qty: 1 0RF Referrals: Linda Faustin MD [Primary Care Provider] - 5 days (as needed) Stand Alone Forms: Work/School Release
[2022-02-22 14:22] LABS: COVID-19 Test Negative (Negative); IDNOW Serial# 9DB6401D; Influenza A Negative (Negative); Influenza B2 Negative (Negative)
== END 2022-02-22 16:13 | disposition home or self-care (01) ==
PROVIDERS: Nurse Practitioner Family; Emergency Provider Emergency Medicine; PCP Student in an Organized Health Care Education/Training Program
DX: R07.89 Other chest pain (principal); I10 Essential (primary) hypertension; R05.9 Cough, unspecified; Z20.822 Contact with and (suspected) exposure to COVID-19; Z79.899 Other long term (current) drug therapy
CPT/HCPCS: 71046; 87502; 87635; 99283

== ENCOUNTER 2022-03-28 10:05 | Outpatient (REF) | payer OTHER, MEDICAID, SELFPAY ==
[2022-03-29 11:16] LABS: BV Int Neg Control Negative (Negative); BV Int Pos Control Positive (Positive)
== END 2022-03-28 10:06 | disposition home or self-care (01) ==
LOC: HO.LAB 10:05
PROVIDERS: Visit Provider Internal Medicine
DX: N76.0 Acute vaginitis (principal); B96.89 Other specified bacterial agents as the cause of diseases classified elsewhere
CPT/HCPCS: 87480; 87510; 87660

== ENCOUNTER 2022-05-26 00:04 | Emergency (ER) | payer OTHER, MEDICAID, SELFPAY ==
--- NOTE | 2022-05-26 | ECG_ITS ---
Test Reason : CHEST PAIN Blood Pressure : / mmHG Vent. Rate : 050 BPM Atrial Rate : 050 BPM P-R Int : 156 ms QRS Dur : 086 ms QT Int : 426 ms P-R-T Axes : 043 021 025 degrees QTc Int : 388 ms Sinus bradycardia with sinus arrhythmia Otherwise normal ECG No previous ECGs available Referred By: Generic ED Physician Electronically Signed By:Yvan Leyva
--- NOTE | ~2022-05-26 | XR_ITS ---
EXAMINATION: XR CHEST CLINICAL INFORMATION: Chest pain COMPARISON: 02/22/2022 TECHNIQUE: Frontal view of the chest was obtained. FINDINGS: The lungs are clear with no focal consolidation. No evidence of pneumothorax, pulmonary edema, or pleural effusions. The cardiomediastinal silhouette is unremarkable. No acute osseous findings. XR/XR chest 1V IMPRESSION: No acute cardiopulmonary findings.
--- NOTE | 2022-05-26 00:10 | PC.NURSE ---
PT A&Ox4, reports 5/10 substernal CP that radiates to back, starting yesterday, describes the pain as stabbing. PT denies SOB, or palpitations. Meds given as documented.
[2022-05-26 00:14] VITALS: BP 203/114; PULSE 54; RESP 20; TEMP 36.7; O2SAT 100; BMI 27.4
--- NOTE | 2022-05-26 00:30 | MHC.EDTECH ---
labs drawn, ekg done in triage. pt placed on media monitor.
[2022-05-26 00:32] LABS: MANUAL DIFF FLAG NO
[2022-05-26 00:33] LABS: Basophils Percent Auto 0.8 % (0-2); Eosinophils Absolute Auto 0.1 X10*3/uL (0.0-0.4); Eosinophils Percent Auto 1.6 % (0-4); Hematocrit 36.6 % (37.0-47.0); Hemoglobin 12.2 g/dl (12.0-16.0); Lymphocytes Absolute Auto 2.5 X10*3/uL (1.2-4.9); Mean Corpuscular HGB Conc 33.3 g/dl (31.0-35.0); Mean Corpuscular Hemoglobin 28.8 pg (27.0-33.0); Mean Corpuscular Volume 86.3 fL (80.0-98.0); Mean Platelet Volume 10.3 fL (9.4-12.3); Monocytes Absolute Auto 0.4 X10*3/uL (0.1-1.2); Monocytes Percent Auto 8.2 % (2-11); Neutrophils Percent Auto 40.4 % (45-73); Platelet Count 240 X10*3/uL (160-400); Red Blood Count 4.24 X10*6/uL (4.20-5.50); Red Cell Distribution Width 14.2 % (11.0-16.0)
--- NOTE | 2022-05-26 00:39 | ED_ITS ---
HPI - Chest Pain General Chief Complaint: Chest Pain Stated Complaint: Chest pain/ left arm pain, ran out of BP Meds Time Seen by Provider: 05/26/22 00:19 Source: patient Mode of arrival: ambulatory History of Present Illness HPI narrative: 37-year-old female, known hypertensive, takes labetalol 100 mg twice a day as well as another daily medication that she cannot recall the name presents with complaints of substernal chest discomfort that started approximately 1700 last night and was associated with some shortness of breath, nausea and headache as well as left arm pain. Related Data Home Medications Medication Instructions Recorded Confirmed amlodipine 10 mg tablet 5 mg PO BID 08/27/20 09/15/21 folic acid 800 mcg tablet 0.8 mg PO DAILY 03/28/22 Previous Rx's Medication Instructions Recorded labetalol 100 mg tablet 200 mg PO BID #1 tab 05/19/21 albuterol sulfate 90 mcg/actuation 2 inh inhalation Q4H PRN shortness 02/22/22 breath activated powder inhaler of breath or wheezing #1 ea albuterol sulfate 90 mcg/actuation 2 inh inhalation Q4H PRN shortness 02/23/22 aerosol inhaler (ProAir HFA) of breath or wheezing #8.5 grams fluconazole 150 mg tablet 150 mg PO DAILY #1 tab 03/28/22 (Diflucan) pantoprazole 40 mg tablet,delayed 40 mg PO DAILY #30 tabs 03/28/22 release metronidazole 500 mg tablet 500 mg PO Q8H #21 tabs 03/29/22 amlodipine 5 mg tablet (Norvasc) 5 mg PO BID #14 tabs 05/26/22 labetalol 100 mg tablet 100 mg PO BID #14 tabs 05/26/22 omeprazole 40 mg capsule,delayed 40 mg PO DAILY #30 caps 05/26/22 release Allergies Allergy/AdvReac Type Severity Reaction Status Date / Time morphine [MORPHINE] Allergy Unknown HIVES Verified 05/26/22 00:13 Review of Systems Review of Systems: Pertinent positives and negatives as stated in HPI [facility] Past Medical History Source: nursing notes reviewed Medical History HTN (hypertension) Orbital fracture Surgical History History of neck surgery Family History Family History Mother HTN (hypertension) Father HTN (hypertension) Diabetes Social History Social History Alcohol intake: never Patient Tobacco Use Status: Never used Tobacco Smoked in Last 30 Days: No Use of substances other than those prescribed or required for medical reasons: Yes Substance Use Type: Marijuana Substance Use Frequency: Socially Advance Directives: Yes Advance Directives on File: Yes Advance Directives Date on File: 07/02/20 Patient : No Physical Exam Vital Signs: Vital Signs: Last Vital Signs Temp 98.1 F 05/26/22 00:14 Pulse 56 05/26/22 00:45 Resp 16 05/26/22 00:45 BP 173/92 H 05/26/22 00:45 Pulse Ox 97 05/26/22 00:45 O2 Del Method 05/26/22 00:45 BMI result Body Mass Index 27.4 VITAL SIGNS: Reviewed. GENERAL: Well developed, well nourished, in no acute distress. HEAD: Normocephalic/atraumatic EYES: PERRLA, EOMI LUNGS: Normal breath sounds. No adventitious sounds or accessory muscle use. SpO2<97> CARDIOVASCULAR: Regular rate and rhythm without noted murmurs ABDOMEN: Soft, non-tender, non-distended with bowel sounds. MUSCULOSKELETAL: No tenderness, deformities, or effusions noted on gross inspection. EXTREMITIES: No cyanosis, clubbing or edema. SKIN: Inspection of the skin reveals no rashes NEUROLOGIC: Alert and oriented x 4. Strength and sensation to light touch were grossly intact x 4, no facial asymmetry, no pronator drift, cranial nerves 2-12 are grossly intact. Medications Administered Discontinued Medications Generic Name Dose Route Start Last Admin Trade Name Freq PRN Reason Stop Dose Admin Al Hydroxide/Mg Hydroxide 30 ml 05/26/22 02:03 05/26/22 02:29 Magnesium Hydrox/Alum Hydrox 30 Ml Oral.Susp PO 05/26/22 02:04 30 ml ONCE ONE Administration Amlodipine Besylate 10 mg 05/26/22 00:20 05/26/22 00:47 Amlodipine Besylate 10 Mg Tablet PO 05/26/22 00:21 10 mg ONCE ONE Administration Protocol Lidocaine HCl 10 ml 05/26/22 02:03 05/26/22 02:29 Lidocaine Hcl Viscous 2 % 15 Ml Solution MUCOUS MEM 05/26/22 02:04 10 ml ONCE ONE Administration Medical Decision Making Medical Decision Making [facility] Narrative: 37-year-old female with suspected hypertensive related chest pain, will evaluate with troponin, patient is nonfocal and I do not feel that she requires a CT of the head at this time. Will also provide patient with 10 mg of Norvasc instead of labetalol due to patient's heart rate. I reviewed all investigations and my interpretation is that patient's chest pain is low clinical suspicion for cardiac in etiology, this discomfort has improved, EKG/troponin do not support cardiac etiology at this time, chest x-ray does not suggest any infectious etiology, patient's blood pressure has significantly improved and she will be discharged with a short course of blood pressure medication until she can get a hold of her primary care provider in the morning. Differential Diagnosis Differential Diagnoses: The differential diagnosis associated with the presentation includes Please see the discussion above Lab Data [facility] Lab Attestation statement: I reviewed the patient's lab results. Please see the discussion above 05/26/22 00:28 05/26/22 00:28 Labs: Lab Results 05/26/22 05/26/22 05/26/22 Range/Units 00:28 00:28 00:28 WBC 5.0 (4.8-10.8) X10*3/uL RBC 4.24 (4.20-5.50) X10*6/uL Hgb 12.2 (12.0-16.0) g/dl Hct 36.6 L (37.0-47.0) % MCV 86.3 (80.0-98.0) fL MCH 28.8 (27.0-33.0) pg MCHC 33.3 (31.0-35.0) g/dl RDW 14.2 (11.0-16.0) % Plt Count 240 (160-400) X10*3/uL MPV 10.3 (9.4-12.3) fL Immature Gran % (Auto) 0.0 (0.0-0.4) % Neut % (Auto) 40.4 L (45-73) % Lymph % (Auto) 49.0 H (20-40) % [place] % (Auto) 8.2 (2-11) % Eos % (Auto) 1.6 (0-4) % Baso % (Auto) 0.8 (0-2) % Lymph # (Auto) 2.5 (1.2-4.9) X10*3/uL [place] # (Auto) 0.4 (0.1-1.2) X10*3/uL Eos # (Auto) 0.1 (0.0-0.4) X10*3/uL Baso # (Auto) 0.0 (0.0-0.2) X10*3/uL Abs Immat Gran (auto) 0.00 (0.00-0.03) X10*3/uL Absolute Neuts (auto) 2.0 (2.0-8.3) x10*3/uL Absolute Nucleated RBC 0.000 (0.0-0.012) X10*3/uL Nucleated RBC % (auto) 0.0 (0.0-0.2) /100WBC Sodium 138 (135-145) mmol/L Potassium 3.9 (3.3-5.1) mmol/L Chloride 107 (96-108) mmol/L Carbon Dioxide 23 (22-29) mmol/L Anion Gap 12 (12-20) BUN 11 (9-16) mg/dL Creatinine 0.83 (0.5-1.4) mg/dL Estim Creat Clear Calc 89.7 Estimated GFR > 60 Random Glucose 98 (60-115) mg/dL Calcium 9.0 (8.4-10.2) mg/dL Troponin I High Sens < 3.5 (<3.5-17.0) ng/L Urine Color Urine Appearance Urine pH (5.0-9.0) Ur Specific [place] (1.005-1.025) Urine Protein (Neg-Trace) mg/dL Urine Glucose (UA) (Negative) mg/dL Urine Ketones (Negative) mg/dL Urine Blood (Negative) Urine Nitrite (Negative) Ur Leukocyte Esterase (Negative) Urine RBC (0-2) /HPF Urine WBC (0-5) /HPF Ur Squamous Epith Cells (0-2) /HPF Urine Bacteria (None Seen) Hyaline Casts (0-2) /LPF Urine Test (NEGATIVE) 05/26/22 05/26/22 Range/Units 01:28 01:28 WBC (4.8-10.8) X10*3/uL RBC (4.20-5.50) X10*6/uL Hgb (12.0-16.0) g/dl Hct (37.0-47.0) % MCV (80.0-98.0) fL MCH (27.0-33.0) pg MCHC (31.0-35.0) g/dl RDW (11.0-16.0) % Plt Count (160-400) X10*3/uL MPV (9.4-12.3) fL Immature Gran % (Auto) (0.0-0.4) % Neut % (Auto) (45-73) % Lymph % (Auto) (20-40) % [place] % (Auto) (2-11) % Eos % (Auto) (0-4) % Baso % (Auto) (0-2) % Lymph # (Auto) (1.2-4.9) X10*3/uL [place] # (Auto) (0.1-1.2) X10*3/uL Eos # (Auto) (0.0-0.4) X10*3/uL Baso # (Auto) (0.0-0.2) X10*3/uL Abs Immat Gran (auto) (0.00-0.03) X10*3/uL Absolute Neuts (auto) (2.0-8.3) x10*3/uL Absolute Nucleated RBC (0.0-0.012) X10*3/uL Nucleated RBC % (auto) (0.0-0.2) /100WBC Sodium (135-145) mmol/L Potassium (3.3-5.1) mmol/L Chloride (96-108) mmol/L Carbon Dioxide (22-29) mmol/L Anion Gap (12-20) BUN (9-16) mg/dL Creatinine (0.5-1.4) mg/dL Estim Creat Clear Calc Estimated GFR Random Glucose (60-115) mg/dL Calcium (8.4-10.2) mg/dL Troponin I High Sens (<3.5-17.0) ng/L Urine Color Yellow Urine Appearance Clear Urine pH 6.5 (5.0-9.0) Ur Specific [place] <= 1.005 (1.005-1.025) Urine Protein Negative (Neg-Trace) mg/dL Urine Glucose (UA) Negative (Negative) mg/dL Urine Ketones Negative (Negative) mg/dL Urine Blood Trace H (Negative) Urine Nitrite Negative (Negative) Ur Leukocyte Esterase Negative (Negative) Urine RBC 0-2 (0-2) /HPF Urine WBC 0-5 (0-5) /HPF Ur Squamous Epith Cells 0-2 (0-2) /HPF Urine Bacteria None Seen (None Seen) Hyaline Casts 0-2 (0-2) /LPF Urine Test NEGATIVE (NEGATIVE) Independent Interpretation I performed an independent interpretation of an: EKG Interpretation: Sinus bradycardia, HR -50, no STEMI, [place]/QRS/QTC are within normal limits. Radiology Impression Radiologist Impression: My interpretation is in agreement with radiology's impression of the imaging study. External Record Review External record reviewed: Outpatient record and Prior outpatient labs Chronic Conditions Patient?s care impacted by: Hypertension Discharge Plan Discharge Clinical Impression: Chest pain, HTN (hypertension), GERD (gastroesophageal reflux disease) Patient Disposition: Home, Self-Care Instructions: Chest Pain (ED), Diet for Stomach Ulcers and Gastritis (ED), Gastroesophageal Reflux Disease (ED), DASH Eating Plan (ED), Hypertension (ED) Additional Instructions: You need to call your primary care provider in the morning to get your blood pressure medication prescribed. Return to the ER for any worsening symptoms. Prescriptions: New omeprazole 40 mg capsule,delayed release(DR/EC) 40 mg PO DAILY Qty: 30 0RF labetalol 100 mg tablet 100 mg PO BID Qty: 14 0RF amlodipine [Norvasc] 5 mg tablet 5 mg PO BID Qty: 14 0RF No Action amlodipine 10 mg tablet 5 mg PO BID metronidazole 500 mg tablet 500 mg PO Q8H Qty: 21 0RF albuterol sulfate 90 mcg/actuation aerosol powdr breath activated 2 inh inhalation Q4H PRN (Reason: shortness of breath or wheezing) Qty: 1 0RF albuterol sulfate [ProAir HFA] 90 mcg/actuation HFA aerosol inhaler 2 inh inhalation Q4H PRN (Reason: shortness of breath or wheezing) Qty: 8.5 0RF folic acid 800 mcg tablet 0.8 mg PO DAILY fluconazole [Diflucan] 150 mg tablet 150 mg PO DAILY Qty: 1 0RF pantoprazole 40 mg tablet,delayed release (DR/EC) 40 mg PO DAILY Qty: 30 0RF labetalol 100 mg tablet 200 mg PO BID Qty: 1 0RF Referrals: Kevin Sanchez PA-C [Primary Care Provider] -
[2022-05-26 00:45] VITALS: BP 173/92; PULSE 56; RESP 16; O2SAT 97
[2022-05-26] MEDS: amLODIPine Besylate 10 MG TABLET PO (00:47)
[2022-05-26 00:54] LABS: Anion Gap 12 (12-20); Blood Urea Nitrogen 11 mg/dL (9-16); Carbon Dioxide 23 mmol/L (22-29); Chloride 107 mmol/L (96-108); Creatinine Clr Calc Pharmacy 89.7; Estimated Glomerular Filt Rate > 60; Glucose Random 98 mg/dL (60-115); Potassium 3.9 mmol/L (3.3-5.1); Sodium 138 mmol/L (135-145)
[2022-05-26 01:03] LABS: Troponin-I High Sensitivity < 3.5 ng/L (<3.5-17.0)
[2022-05-26 01:34] LABS: Appearance Urine Clear; Color Urine Yellow; Glucose Urine UA Negative (Negative); Leukocyte Esterase Urine Negative (Negative); Nitrite Urine Negative (Negative); PH 6.5 (5.0-9.0); Specific Gravity - Urine <= 1.005 (1.005-1.025); UMIC TRIGGER UACC YES; Urine Blood Trace (Negative); Urine Ketones Negative (Negative); Urine Protein Negative (Neg-Trace)
[2022-05-26 01:35] LABS: UPreg QC Valid YES; Urine Pregnancy NEGATIVE (NEGATIVE)
[2022-05-26 01:36] LABS: Bacteria Urine None Seen (None Seen); Hyaline Casts Urine 0-2 /LPF (0-2); RBC Urine 0-2 /HPF (0-2); Squamous Epithelial Cell Urine 0-2 /HPF (0-2); WBC Urine 0-5 /HPF (0-5)
[2022-05-26] MEDS: Magnesium Hydrox/Alum Hydrox 30 ML ORAL.SUSP PO (02:29)
[2022-05-26] MEDS: Lidocaine HCl Viscous 2 % 15 ML SOLUTION 10 ML MUCOUS MEM (02:29)
[2022-05-26 03:03] VITALS: BP 171/95; PULSE 55; RESP 16; O2SAT 98
== END 2022-05-26 03:08 | disposition home or self-care (01) ==
PROVIDERS: Emergency Provider Student in an Organized Health Care Education/Training Program; PCP Physician Assistant
DX: R07.89 Other chest pain (principal); I10 Essential (primary) hypertension; K21.9 Gastro-esophageal reflux disease without esophagitis; M79.602 Pain in left arm; Z79.899 Other long term (current) drug therapy
CPT/HCPCS: 36415; 71045; 80048; 81001; 81025; 84484; 85025; 93005; 99283; 99284

== ENCOUNTER 2022-06-13 08:50 | Outpatient (REF) | payer OTHER, MEDICAID, SELFPAY ==
[2022-06-13 11:58] LABS: Cholesterol 214 mg/dL; HDL Cholesterol 52 mg/dL; LDL Cholesterol Calculated 148 mg/dl; Triglycerides 72 mg/dL
[2022-06-13 12:04] LABS: TSH reflex Free T4 1.07 uIU/mL (0.32-4.0); Vitamin D 25-OH Total 6.9 ng/mL (>30)
== END 2022-06-13 08:51 | disposition home or self-care (01) ==
LOC: HO.WFDLDS 08:50
PROVIDERS: Visit Provider Nurse Practitioner Family
DX: I10 Essential (primary) hypertension (principal); E55.9 Vitamin D deficiency, unspecified
CPT/HCPCS: 36415; 80061; 82306; 84443

== ENCOUNTER 2022-08-02 14:55 | Outpatient (REF) | payer OTHER, SELFPAY ==
[2022-08-02 17:39] LABS: Uric Acid 5.4 mg/dL (2.4-5.7)
== END 2022-08-02 14:56 | disposition home or self-care (01) ==
LOC: HO.LAB 14:55
PROVIDERS: PCP Nurse Practitioner Family; Visit Provider Nurse Practitioner Family
DX: M25.572 Pain in left ankle and joints of left foot (principal)
CPT/HCPCS: 36415; 84550

== ENCOUNTER 2022-10-31 15:04 | Emergency (ER) | payer OTHER, SELFPAY ==
[2022-10-31 15:12] VITALS: BP 150/87; PULSE 59; RESP 19; TEMP 36.6; O2SAT 98; BMI 28.3
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
== END 2022-10-31 16:40 | disposition home or self-care (01) ==
PROVIDERS: Emergency Provider Student in an Organized Health Care Education/Training Program; PCP Nurse Practitioner Family
DX: S39.012A Strain of muscle, fascia and tendon of lower back, initial encounter (principal); V43.52XA Car driver injured in collision with other type car in traffic accident, initial encounter; Y93.89 Activity, other specified; Y92.414 Local residential or business street as the place of occurrence of the external cause; Y99.0 Civilian activity done for income or pay
CPT/HCPCS: 99282

== ENCOUNTER 2022-11-02 11:21 | Outpatient (AMB) | payer OTHER, SELFPAY ==
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
[2022-11-02 12:01] VITALS: BP 134/80; PULSE 59; TEMP 36; O2SAT 100
== END 2022-11-02 12:46 | disposition home or self-care (01) ==
PROVIDERS: PCP Nurse Practitioner Family; Visit Provider Physician Assistant
DX: M62.830 Muscle spasm of back (principal); M25.519 Pain in unspecified shoulder
CPT/HCPCS: 99213

== ENCOUNTER 2022-11-02 12:22 | Outpatient (REF) | payer OTHER, SELFPAY ==
--- NOTE | ~2022-11-02 | XR_ITS ---
EXAMINATION: LUMBAR SPINE AND RIGHT SHOULDER CLINICAL INFORMATION: Muscle spasms COMPARISON: None. TECHNIQUE: Three-view lumbar spine and three-view right shoulder FINDINGS: Views of the right shoulder do not demonstrate any evidence of acute fracture or dislocation. Glenohumeral joint unremarkable. No calcific tendinitis. Acromioclavicular joint unremarkable. 3 views of the lumbar spine do not demonstrate any evidence of acute fracture, spondylolisthesis, or spondylolysis. Disc spaces are maintained. Sacroiliac joints appear unremarkable. Pedicles intact. XR/XR lumbar spine 2-3V IMPRESSION: No significant bony abnormality of the right shoulder or lumbar sacral spine identified.
--- NOTE | ~2022-11-02 | XR_ITS ---
EXAMINATION: LUMBAR SPINE AND RIGHT SHOULDER CLINICAL INFORMATION: Muscle spasms COMPARISON: None. TECHNIQUE: Three-view lumbar spine and three-view right shoulder FINDINGS: Views of the right shoulder do not demonstrate any evidence of acute fracture or dislocation. Glenohumeral joint unremarkable. No calcific tendinitis. Acromioclavicular joint unremarkable. 3 views of the lumbar spine do not demonstrate any evidence of acute fracture, spondylolisthesis, or spondylolysis. Disc spaces are maintained. Sacroiliac joints appear unremarkable. Pedicles intact. XR/XR shoulder RT min 2V IMPRESSION: No significant bony abnormality of the right shoulder or lumbar sacral spine identified.
== END 2022-11-02 12:23 | disposition home or self-care (01) ==
LOC: HO.HMGCX 12:22
PROVIDERS: PCP Nurse Practitioner Family; Visit Provider Physician Assistant
DX: M25.511 Pain in right shoulder (principal); M62.830 Muscle spasm of back
CPT/HCPCS: 72100; 73030

== ENCOUNTER 2022-11-06 13:05 | Outpatient (AMB) | payer OTHER, SELFPAY ==
[2022-11-06 13:08] VITALS: BP 142/92; PULSE 62; RESP 20; TEMP 37; O2SAT 99; BMI 28.9
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
== END 2022-11-06 14:21 | disposition home or self-care (01) ==
PROVIDERS: PCP Nurse Practitioner Family; Visit Provider Nurse Practitioner Family
DX: M54.9 Dorsalgia, unspecified (principal); I10 Essential (primary) hypertension
CPT/HCPCS: 99213

== ENCOUNTER 2022-11-10 12:34 | Outpatient (AMB) | payer OTHER, SELFPAY ==
[2022-11-10 12:45] VITALS: BP 122/64; PULSE 82; RESP 12; TEMP 36.4; O2SAT 99; BMI 28.7
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
== END 2022-11-10 13:18 | disposition home or self-care (01) ==
PROVIDERS: PCP Nurse Practitioner Family; Visit Provider Nurse Practitioner Family
DX: M54.9 Dorsalgia, unspecified (principal)
CPT/HCPCS: 99213

== ENCOUNTER 2022-11-17 00:36 | Emergency (ER) | payer OTHER, SELFPAY ==
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
[2022-11-17 00:39] VITALS: BP 171/95; PULSE 65; RESP 18; TEMP 36.4; O2SAT 99; BMI 28.3
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
[2022-11-17] MEDS: Acetaminophen 325 MG TABLET 975 MG PO (03:14)
[2022-11-17] MEDS: oxyCODONE HCl Immed Release 5 MG TABLET PO (04:03)
== END 2022-11-17 04:09 | disposition home or self-care (01) ==
PROVIDERS: Emergency Provider Emergency Medicine; PCP Nurse Practitioner Family
DX: S13.4XXA Sprain of ligaments of cervical spine, initial encounter (principal); R51.9 Headache, unspecified; M54.2 Cervicalgia; V43.52XA Car driver injured in collision with other type car in traffic accident, initial encounter; Y93.9 Activity, unspecified; Y92.410 Unspecified street and highway as the place of occurrence of the external cause; Y99.9 Unspecified external cause status
CPT/HCPCS: 70450; 72125; 99283; 99284

== ENCOUNTER 2022-11-21 08:47 | Outpatient (AMB) | payer OTHER, SELFPAY ==
[2022-11-21 08:49] VITALS: BP 146/90; BMI 28.3
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
== END 2022-11-21 09:59 | disposition home or self-care (01) ==
LOC: HO.HWS 08:47
PROVIDERS: PCP Nurse Practitioner Family; Visit Provider Advanced Practice Midwife
DX: Z01.411 Encounter for gynecological examination (general) (routine) with abnormal findings (principal); Z20.2 Contact with and (suspected) exposure to infections with a predominantly sexual mode of transmission; N63.0 Unspecified lump in unspecified breast; K62.89 Other specified diseases of anus and rectum; Z80.0 Family history of malignant neoplasm of digestive organs
CPT/HCPCS: 99385; 99395

== ENCOUNTER 2022-11-21 08:47 | Outpatient (REF) | payer OTHER, SELFPAY ==
[2022-11-28 06:34] LABS: HPV mRNA E6/E7 rflx Not Detected (Not Detected)
== END 2022-11-21 08:48 | disposition home or self-care (01) ==
LOC: HO.LNP 08:47
PROVIDERS: PCP Nurse Practitioner Family; Visit Provider Advanced Practice Midwife
DX: Z01.419 Encounter for gynecological examination (general) (routine) without abnormal findings (principal); Z11.51 Encounter for screening for human papillomavirus (HPV); Z20.2 Contact with and (suspected) exposure to infections with a predominantly sexual mode of transmission; K62.89 Other specified diseases of anus and rectum
CPT/HCPCS: 87624; 88142

== ENCOUNTER 2022-11-21 10:07 | Outpatient (REF) | payer OTHER, SELFPAY ==
[2022-11-21 12:25] LABS: HBsAGNum1 0.46 S/CO (0.00-0.99); HIV AB/AG Nonreactive (Nonreactive); HIV Num 1 0.05 S/CO (0.00-0.99); Hepatitis B Surface Antigen Negative (Negative); ~HepC Num1 0.06 S/CO (0.00-0.79); ~Hepatitis C Antibody Nonreactive (Nonreactive)
[2022-11-22 04:20] LABS: Syphilis Screen Nonreactive (Nonreactive)
[2022-11-22 04:26] LABS: CT PCR NOT DETECTED (Not Detect.); NG PCR NOT DETECTED (Not Detect.)
[2022-11-23 09:10] LABS: BV Int Neg Control Negative (Negative); BV Int Pos Control Positive (Positive)
== END 2022-11-21 10:08 | disposition home or self-care (01) ==
LOC: HO.LAB 10:07
PROVIDERS: PCP Nurse Practitioner Family; Visit Provider Advanced Practice Midwife
DX: Z11.4 Encounter for screening for human immunodeficiency virus [HIV] (principal); Z20.2 Contact with and (suspected) exposure to infections with a predominantly sexual mode of transmission
CPT/HCPCS: 0353U; 86780; 86803; 87340; 87389; 87480; 87510; 87660

== ENCOUNTER 2022-11-21 15:40 | Outpatient (AMB) | payer OTHER, SELFPAY ==
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
[2022-11-21 15:42] VITALS: BP 160/96; PULSE 96; O2SAT 99; BMI 28.3
[2022-11-21 16:05] VITALS: BP 160/90
== END 2022-11-21 16:19 | disposition home or self-care (01) ==
PROVIDERS: PCP Nurse Practitioner Family; Visit Provider Nurse Practitioner Family
DX: M54.9 Dorsalgia, unspecified (principal); R51.9 Headache, unspecified; I10 Essential (primary) hypertension
CPT/HCPCS: 99214

== ENCOUNTER 2022-11-27 11:18 | Outpatient (REF) | payer OTHER, SELFPAY ==
--- NOTE | ~2022-11-27 | XR_ITS ---
EXAMINATION: XR THORACIC SPINE XR LUMBAR SPINE CLINICAL INFORMATION: Dorsalgia, back pain. COMPARISON: Radiographs of lumbar spine from 11/02/2022 and 2 views of the chest from 02/22/2022. TECHNIQUE: Thoracic spine, 3 views Lumbar spine, 3 views FINDINGS: THORACIC SPINE: Mild dextrocurvature of the thoracic spine of 5 degrees is measured from superior endplate of T2 to the inferior plate of T12. The thoracic vertebra have normal density, height and alignment. The anterior and posterior elements have an intact appearance. No lytic or osteoblastic lesion. The disc spaces of the thoracic spine are maintained. No evidence of a degenerative or inflammatory spondyloarthropathy of the T-spine. There are mild multilevel discovertebral degenerative changes of the cervical spine, including C6-C7 where there is narrowing of the disc space and anterior vertebral osteophyte formation. Well-positioned disc prosthesis is noted at C4-C5. Cervical spine alignment is normal. LUMBAR SPINE: The lumbar vertebra have normal density, height and alignment. There is normal lordotic curvature of the lumbar spine. The anterior and posterior elements are intact. No evidence of pars defects or vertebral compression fractures. Sacrum and sacroiliac joints are normal. Soft tissues are unremarkable. XR/XR lumbar spine 2-3V IMPRESSION: * No evidence of degenerative disc disease, fracture or malalignment in the thoracic or lumbar spine. * Mild multilevel spondylosis of the cervical spine and well-positioned disc prosthesis is noted at C4-C5.
--- NOTE | ~2022-11-27 | XR_ITS ---
EXAMINATION: XR THORACIC SPINE XR LUMBAR SPINE CLINICAL INFORMATION: Dorsalgia, back pain. COMPARISON: Radiographs of lumbar spine from 11/02/2022 and 2 views of the chest from 02/22/2022. TECHNIQUE: Thoracic spine, 3 views Lumbar spine, 3 views FINDINGS: THORACIC SPINE: Mild dextrocurvature of the thoracic spine of 5 degrees is measured from superior endplate of T2 to the inferior plate of T12. The thoracic vertebra have normal density, height and alignment. The anterior and posterior elements have an intact appearance. No lytic or osteoblastic lesion. The disc spaces of the thoracic spine are maintained. No evidence of a degenerative or inflammatory spondyloarthropathy of the T-spine. There are mild multilevel discovertebral degenerative changes of the cervical spine, including C6-C7 where there is narrowing of the disc space and anterior vertebral osteophyte formation. Well-positioned disc prosthesis is noted at C4-C5. Cervical spine alignment is normal. LUMBAR SPINE: The lumbar vertebra have normal density, height and alignment. There is normal lordotic curvature of the lumbar spine. The anterior and posterior elements are intact. No evidence of pars defects or vertebral compression fractures. Sacrum and sacroiliac joints are normal. Soft tissues are unremarkable. XR/XR thoracic spine 2V IMPRESSION: * No evidence of degenerative disc disease, fracture or malalignment in the thoracic or lumbar spine. * Mild multilevel spondylosis of the cervical spine and well-positioned disc prosthesis is noted at C4-C5.
== END 2022-11-27 11:19 | disposition home or self-care (01) ==
LOC: HO.HMGCX 11:18
PROVIDERS: PCP Nurse Practitioner Family; Visit Provider Nurse Practitioner Family
DX: M54.9 Dorsalgia, unspecified (principal)
CPT/HCPCS: 72070; 72100

== ENCOUNTER 2023-01-02 14:13 | Outpatient (REF) | payer OTHER, MEDICAID, SELFPAY ==
--- NOTE | ~2023-01-02 | US_ITS ---
EXAMINATION: MM DIAGNOSTIC DIGITAL BREAST TOMOSYNTHESIS, BILATERAL US BREAST LIMITED, RIGHT MAMMOGRAPHY: CLINICAL INFORMATION: Palpable focus of concern felt by the patient's physician right breast, 3:00 axis near sternum. Patient does not feel this herself. COMPARISON: Mammography: 08/03/2016. TECHNIQUE: Digital breast tomosynthesis is performed in both the craniocaudal and mediolateral oblique views along with computer-aided detection (CAD). Synthesized 2D images are generated from the tomosynthesis. In addition, a 3-D full-field cleavage view was obtained. FINDINGS: The breasts are almost entirely fatty (ACR BI-RADS breast composition Category a). There are no suspicious masses, suspicious grouped calcifications, or areas of architectural distortion. The parenchymal pattern is stable from prior exams. There is no mass, or other abnormality in the 3:00 axis right breast near the sternum to correlate with the purported palpable focus of concern. This will be investigated by ultrasound. ULTRASOUND: CLINICAL INFORMATION: Palpable focus of concern felt by the patient's physician right breast, 3:00 axis near sternum. Patient does not feel this herself. COMPARISON: None relevant. TECHNIQUE: Targeted sonographic evaluation was performed using a high frequency linear transducer. Attention was given to the medial right breast near the sternum. Selected archived documentation. FINDINGS: RIGHT BREAST: There is predominantly fatty tissue. No suspicious mass is seen. No cystic abnormality. There is no pathologic acoustic shadowing. There is no ultrasonographic correlate to the purported focus of palpable concern at the 3:00 axis right breast near the sternum. US/US breast RT limited mamm only IMPRESSION: No findings suspicious for malignancy in either breast. Purported area of palpable concern 3:00 axis right breast near the sternum shows no imaging correlate. Decision to biopsy a palpable focus of concern without imaging correlate must be determined clinically. Otherwise, recommend return to routine annual screening. OVERALL ASSESSMENT: Mammography: BI-RADS 1 - Negative Ultrasound: BI-RADS 1 - Negative RECOMMENDATION: 1 year F/U This patient's information was entered into a reminder system with a target due date for their next mammogram.
== END 2023-01-02 14:14 | disposition home or self-care (01) ==
LOC: HO.MAMMO 14:13
PROVIDERS: PCP Nurse Practitioner Family; Visit Provider Advanced Practice Midwife
DX: N63.15 Unspecified lump in the right breast, overlapping quadrants (principal)
CPT/HCPCS: 76642; 77062; 77066

== ENCOUNTER → 2023-01-02 14:30 | Outpatient (BNV) | payer OTHER, SELFPAY | PROVIDERS: PCP Nurse Practitioner Family; Visit Provider Radiology Diagnostic Radiology | DX: R92.2 Inconclusive mammogram (principal) | CPT/HCPCS: 76642; 77062; 77066; G0279 ==

== ENCOUNTER 2023-01-03 09:16 | Outpatient (AMB) | payer OTHER, SELFPAY ==
--- NOTE | 2023-01-03 09:24 | MHC.OFFVIS ---
Intake Vital Signs 01/03/23 09:26 Height 5 ft 4 in Weight 158 lb 11.725 oz BMI 27.2 BP 144/86 H Blood Pressure Location Lt brachial Position Sitting Pulse 69 Intake Visit Reasons: disorder of rectum Intake Note: Yesenia presents in the office as a new patient. CC: She states she has been having stomach pains and she has been having bowel problems. She has been a little embarrassed to say it. It is painful when she has a BM. Blood at times when she wipes - but she describes a mucus at times. Allergies morphine [MORPHINE] Allergy (Unknown, Verified 01/03/23 09:26) HIVES HPI HPI Comments History of Present Illness Details 37 y.o F with PMH of HTN who is here for rectal pain. Pt reports having severe sharp rectal pain on defecation on and off for the past 2 years now. Episodes often last a few weeks before she goes back to her baseline. During this also notes some blood on wiping. Reports baseline constipation with passing 2 BMs per week at an average with straining. Also has previous hx of anal receptive intercourse. No baseline abd pain, cramping, diarrhea, urgency or tenesmus. Fam hx of ?intestinal ca in pat grandmother. No fam hx reported for CRC or IBD in first degree relatives. [facility] Medical History Family history of colon cancer Back pain Orbital fracture HTN (hypertension) Surgical History History of neck surgery Family History Mother HTN (hypertension) Father HTN (hypertension) Diabetes Paternal Grandmother Intestinal cancer Other Alcoholism Social History Housing: Apartment Alcohol intake: never Patient Tobacco Use Status: Never used Tobacco e-Cigarette/Vaping Use: Never Used Substance Use Type: Marijuana Advance Directives Date on File: 07/02/20 service: No Current occupational status: employed Current occupation: [employer] Current occupational exposures/hazards: Yes Cognitive needs: No Hearing needs: No Vision needs: No Female Reproductive History Menstrual Age of Menarche: 10 Review of Systems Const All systems reviewed & are unremarkable except as noted in HPI and below Physical Exam Vital Signs: Last Vital Signs Pulse 69 01/03/23 09:26 BP 144/86 H 01/03/23 09:26 BMI result Body Mass Index 27.2 Gen appear: NAD HEENT: nonicteric, no cervical lymphadenopathy Chest: CTA CVS: Regular S1/S2 Abd: soft, nontender, nondistended, bowel sounds + Rectal: Bhartikelle Nicole MA present as us customs and border officer. No ext hemorrhoid, tag or fissure noted on inspection. Pt reported severe pain on digital exam so it was terminated, anal tone was noted to be hypertensive despite having pt do bear down manuever. No blood on gloved finger. Ext: no peripheral edema Neuro: A/Ox3, noted to move all extremities spontaneously Psych: interacting appropriately Assessment & Plan Assessment & Plan (1) Rectal or anal pain: Code(s): K62.89 - Other specified diseases of anus and rectum (2) Bright red rectal bleeding: Code(s): K62.5 - Hemorrhage of anus and rectum (3) Anal fissure: Code(s): K60.2 - Anal fissure, unspecified Plan Overall assessment most consistent with anal fissure likely due to local anal trauma. No baseline chronic sx to suggest crohns but on Ddx. Recommendations: - Avoid constipation. Miralax once daily and then PRN once BMs regulated - Add fiber supplementation - Sitz baths - Topical nitroglycerin x 4 weeks Follow up in 4 weeks Medications: New nitroglycerin 0.4%(w/w) 1 inch MS BEDTIME 30 grams 1RF 4 weeks Coding Level of Care Code New Pt Level 4 (16803) Diagnoses Rectal or anal pain K62.89 Bright red rectal bleeding K62.5 Anal fissure K60.2
[2023-01-03 09:26] VITALS: BP 144/86; PULSE 69; BMI 27.2
== END 2023-01-03 09:54 | disposition home or self-care (01) ==
PROVIDERS: PCP Nurse Practitioner Family; Visit Provider Internal Medicine
DX: K62.89 Other specified diseases of anus and rectum (principal); K62.5 Hemorrhage of anus and rectum; K60.2 Anal fissure, unspecified
CPT/HCPCS: 99204; 99214

== ENCOUNTER → 2023-01-03 09:16 | Outpatient (BNVA) | payer OTHER, MEDICAID, SELFPAY | PROVIDERS: PCP Nurse Practitioner Family; Visit Provider Internal Medicine | DX: K62.89 Other specified diseases of anus and rectum (principal); K62.5 Hemorrhage of anus and rectum; K60.2 Anal fissure, unspecified | CPT/HCPCS: 99202 ==

== ENCOUNTER 2023-01-18 14:53 | Outpatient (AMB) | payer OTHER, SELFPAY ==
--- NOTE | 2023-01-18 15:06 | MHC.OFFVIS ---
Intake Vital Signs 01/18/23 15:11 Height 5 ft 4 in Weight 167 lb BMI 28.7 BP 133/70 Blood Pressure Location Rt brachial Position Sitting Pulse 72 Intake Visit Reasons: right breast lump Intake Note: This patient presents for an assessment for right breast lump. Patient c/o; right breast, reports no pain, discomfort or tenderness. 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 She had a visit with her her care physician 2 months ago and her PCP had out that there was a right breast mass. She was sent for an ultrasound by her primary care physician in view of this and there was no imaging correlate of these mass. There were no masses seen on both the ultrasound and her mammogram. The patient says that she does not feel the mass either. Her menarche was at the age of 10. She has never been . Still has her periods. She denies a family history of breast cancer. [facility] Medical History (Updated 01/18/23 @ 15:25 by Sharif Sims MD) Breast mass, right Family history of colon cancer Back pain Orbital fracture HTN (hypertension) Surgical History History of neck surgery Family History Mother HTN (hypertension) Father HTN (hypertension) Diabetes Leukemia Paternal Grandmother Intestinal cancer Other Alcoholism Social History Housing: Apartment Alcohol intake: never Patient Tobacco Use Status: Never used Tobacco e-Cigarette/Vaping Use: Never Used Substance Use Type: Marijuana Advance Directives Date on File: 07/02/20 service: No Current occupational status: employed Current occupation: [employer] Current occupational exposures/hazards: Yes Cognitive needs: No Hearing needs: No Vision needs: No Female Reproductive History Menstrual Age of Menarche: 10 Review of Systems Const Denies chills and Denies fever(s) Card Denies chest pain, Denies dyspnea and Denies dyspnea on exertion Resp Denies cough, Denies dyspnea and Denies dyspnea on exertion GI Denies hematochezia and Denies change in bowel habits Denies hematuria Musc Denies back pain and Denies limited range of motion Neuro Denies focal weakness and Denies convulsions Psych Denies depression and Denies mood swings Physical Exam Vital Signs: Last Vital Signs Pulse 72 01/18/23 15:11 BP 133/70 01/18/23 15:11 BMI result Body Mass Index 28.7 Const General: comfortable and no acute distress Orientation/consciousness: patient oriented x3 Neck Neck: Yes no lymphadenopathy Chest Other: No palpable breast masses, no nipple or skin changes, no axillary lymphadenopathy, no cervical lymphadenopathy Resp Auscultation: clear to auscultation bilaterally Cardio Rhythm: regular rhythm GI Palpation (GI): Soft to palpation, nontender and no guarding Neuro General: patient oriented x3 Assessment & Plan Assessment & Plan (1) Breast mass, right: Code(s): N63.10 - Unspecified lump in the right breast, unspecified quadrant Plan: She does not feel any mass. Current exam does not reveal any palpable mass on the right breast or the left breast. I have reviewed her ultrasound and mammogram and this does not reveal any mass I therefore At this time, I explained to her that she does not need any further workup. She should however continue to have yearly screening mammograms. She can follow up with me on a p.r.n. basis. Coding Level of Care Code New Pt Level 3 (94279) Diagnoses Breast mass, right N63.10
[2023-01-18 15:11] VITALS: BP 133/70; PULSE 72; BMI 28.7
== END 2023-01-18 15:23 | disposition home or self-care (01) ==
PROVIDERS: PCP Nurse Practitioner Family; Referring Provider Advanced Practice Midwife; Visit Provider Surgery
DX: N63.10 Unspecified lump in the right breast, unspecified quadrant (principal)
CPT/HCPCS: 99203; 99213

== ENCOUNTER → 2023-01-18 14:53 | Outpatient (BNVA) | payer OTHER, SELFPAY | PROVIDERS: PCP Nurse Practitioner Family; Referring Provider Advanced Practice Midwife; Visit Provider Surgery ==

== ENCOUNTER 2023-03-01 15:06 | Outpatient (AMB) | payer OTHER, MEDICAID, SELFPAY ==
[2023-03-01 15:11] VITALS: BP 128/74; PULSE 69; TEMP 36.7; O2SAT 99; BMI 28.7
--- NOTE | 2023-03-01 15:11 | MHC.OFFWIV ---
Intake Vital Signs 03/01/23 15:11 Height 5 ft 4 in Weight 167 lb 4 oz BMI 28.7 BP 128/74 Blood Pressure Location Lt brachial Position Sitting Pulse 69 Pulse Source Pulse Oximeter Temp 98.0 F Temp Source Temporal Artery Scan Pulse Oximetry (%) 99 Oxygen Delivery Method Room Air Intake Visit Reasons: EST/upset stomach (lobby masked) Intake Note: pt is here for c/o upset stomach and headache for 1x week Patient Tobacco Use Status: Never used Tobacco Allergies morphine [MORPHINE] Allergy (Unknown, Verified 03/01/23 15:12) HIVES Do you need a note to return to daycare/school/sports/work: Yes HPI HPI Comments History of Present Illness Details The patient presents to urgent care for evaluation of abdominal pain. She states that symptoms started Sunday with nausea and diarrhea.. She reports that her stepson who is with her is sick with a viral illness though his has an upper respiratory Symptoms and no GI symptoms. [facility] Medical History (Updated 02/09/23 @ 13:58 by Jennifer Kraft CNM) Breast mass, right Family history of colon cancer Back pain Orbital fracture HTN (hypertension) Surgical History History of neck surgery Family History Mother HTN (hypertension) Father HTN (hypertension) Diabetes Leukemia Paternal Grandmother Intestinal cancer Other Alcoholism Social History Housing: Apartment Alcohol intake: never Patient Tobacco Use Status: Never used Tobacco e-Cigarette/Vaping Use: Never Used Substance Use Type: Marijuana Advance Directives Date on File: 07/02/20 service: No Current occupational status: employed Current occupation: [employer] Current occupational exposures/hazards: Yes Cognitive needs: No Hearing needs: No Vision needs: No Female Reproductive History Menstrual Age of Menarche: 10 Review of Systems ENT Denies dizziness, Reports nasal congestion and Reports sore throat Card Denies rapid heart rate, Denies dyspnea and Denies dyspnea on exertion Resp Denies dyspnea and Denies dyspnea on exertion GI Denies dyspepsia and Denies heartburn Musc Denies arthralgias and Denies muscle cramps Neuro Denies dizziness, Denies focal weakness and Denies Other visual disturbances Physical Exam Vital Signs: Last Vital Signs Temp 98.0 F 03/01/23 15:11 Pulse 69 03/01/23 15:11 BP 128/74 03/01/23 15:11 Pulse Ox 99 03/01/23 15:11 Oxygen Delivery Method Room Air 03/01/23 15:11 BMI result Body Mass Index 28.7 Const General: healthy appearing and no acute distress HEENT Mouth: Normal oral and palatal mucosa present Resp Effort & Inspection: normal respiratory effort and able to speak in complete sentences Auscultation: clear to auscultation bilaterally Cardio Rate: regular rate Rhythm: regular rhythm GI Other: Abdomen soft ,mild epigastric tenderness, no lower abdominal tenderness. Inspection: Yes normal to inspection Percussion: Yes normal to percussion Assessment & Plan Assessment & Plan (1) Viral respiratory illness: Code(s): J98.8 - Other specified respiratory disorders; B97.89 - Other viral agents as the cause of diseases classified elsewhere (2) Diarrhea: Code(s): R19.7 - Diarrhea, unspecified Plan Symptoms consistent with viral syndrome. Patient does not have any vomiting though she has had decreased oral intake due to the extent of the diarrhea. Will recommend a trial of Imodium and pushing fluids. Patient was instructed to return here for follow-up or follow-up to PCP. Coding Level of Care Code Est Pt Level 3 (67070) Diagnoses Viral respiratory illness J98.8; B97.89 Diarrhea R19.7
== END 2023-03-01 15:57 | disposition home or self-care (01) ==
PROVIDERS: PCP Nurse Practitioner Family; Visit Provider Emergency Medicine
DX: J98.8 Other specified respiratory disorders (principal); B97.89 Other viral agents as the cause of diseases classified elsewhere; R19.7 Diarrhea, unspecified
CPT/HCPCS: 99213

== ENCOUNTER 2023-04-26 16:24 | Outpatient (AMB) | payer OTHER, SELFPAY ==
--- NOTE | 2023-04-26 16:26 | MHC.PC.OV ---
Vital Signs 04/26/23 16:27 Height 5 ft 4 in Weight 167 lb BMI 28.7 BP 120/76 Blood Pressure Location Rt brachial Position Sitting Respiration 13 Pulse 62 Pulse Source Pulse Oximeter Temp 97.5 F Temp Source Temporal Artery Scan Pulse Oximetry (%) 99 Oxygen Delivery Method Room Air Intake Visit Reasons: Cough/ Neck Pain Intake Note: Patient believes she may have UTI as well. Director Behavioral Health Required: No Accompanied by: Self / Same As Patient Allergies morphine [MORPHINE] Allergy (Unknown, Verified 04/26/23 16:36) HIVES Medication List - Last Reconciled 04/26/23 by Gilles Mendez CNP amlodipine (Norvasc) 5 mg PO BID 30 days labetalol 100 mg PO BID 30 days methocarbamol 500 mg PO TID PRN naproxen 500 mg PO BID PRN nitroglycerin 0.4%(w/w) 1 inch SC BEDTIME 4 weeks Tobacco use date assessed: 04/26/23 Dental Screening Dental Screen Date: 04/26/23 Did you have a dental visit in the last 12 months?: No Did you have a dental problem in the last 6 months where you did not have access to dental care?: No Was dental information given to patient?: Yes HPI HPI Comments History of Present Illness Details 38-year-old female presents with complaints of right-sided posterior neck pain for the past one month. She describes the pain as aching. She reports associated intermittent tingling and numbness to both palms, right worse than left. She takes Naproxen in the morning with some improvement of the aching pain. 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 She notes positive COVID-19 contact a week ago. She took Delsym with adverse reaction of lightheadedness. She has been drinking tea She notes urinary frequency for the past 2 weeks. No pain, blood, or discharge with urination No headache, fever, chills, body aches, fatigue, or weakness [facility] Medical History (Updated 04/26/23 @ 16:57 by Gilles Mendez CNP) Breast mass, right Family history of colon cancer Back pain Orbital fracture HTN (hypertension) Surgical History History of neck surgery Family History Mother HTN (hypertension) Father HTN (hypertension) Diabetes Leukemia Paternal Grandmother Intestinal cancer Other Alcoholism Social History Housing: Apartment Alcohol intake: never Patient Tobacco Use Status: Never used Tobacco e-Cigarette/Vaping Use: Never Used Substance Use Type: Marijuana Advance Directives Date on File: 07/02/20 service: No Current occupational status: employed Current occupation: [employer] Current occupational exposures/hazards: Yes Cognitive needs: No Hearing needs: No Vision needs: No Female Reproductive History Menstrual Age of Menarche: 10 Questionnaire Thrive Questionnaire Date Thrive assessed: 06/06/22 PORTIA-7 AMB Questionnaire PORTIA-7 Date PORTIA - 7 assessed: 06/06/22 Source: Developed by Drs. Jeovany Madsen, Jie Crenshaw, Radhames Renee and colleagues, with an educational lou from [employer]. Review of Systems Const Details: Const Denies chills, Denies fatigue, Denies fever(s), Denies headache(s) and Denies weakness ENT Denies dizziness and Denies headache(s) Card Denies chest pain, Denies lightheadedness, Denies dyspnea and Denies other (Palpitations) Resp Reports cough, Denies dyspnea, Denies wheezing and Denies other ( shortness of breath) GI Denies abdominal pain, Denies melena, Denies hematochezia, Denies change in bowel habits, Denies dyspepsia and Denies nausea Reports as per HPI Musc Reports as per HPI Skin/Breast Denies rash, Denies unusual bruising and Denies wounds Neuro Denies abnormal gait, Denies dizziness, Denies headache(s), Denies memory loss, Denies numbness, Denies Sensory deficit (Neuro), Denies tingling and Denies weakness Psych Denies anxiety, Denies depression, Denies memory loss Endo Denies cold intolerance, Denies fatigue, Denies heat intolerance, Denies polydipsia and Denies polyuria Aller/Immun Denies wheezing Physical exam (Primary Care) Tobacco/Smoking Status: Tobacco use Status Tobacco use date assessed 11/06/22 04/26/23 16:26 Patient Tobacco Use Status Never used Tobacco 04/26/23 16:26 e-Cigarette/Vaping Use Never Used 04/26/23 16:26 Thrive Assessment: Date of Thrive Assessment Date Thrive assessed 06/06/22 04/26/23 16:26 Const Other: General: no acute distress and well developed Nutritional Appearance: well nourished Orientation/consciousness: patient oriented x3 HENMT Head is normocephalic Bilateral ear canal and TM are normal Nasal turbinates and oropharynx are pink and moist Sinuses are nontender with palpation No auricular or cervical lymphadenopathy Eyes General: appearance normal, both eyes and all related structures Pupils: Equal, round and reactive pupils present EOM: EOMs intact bilaterally Resp Effort & Inspection: normal respiratory effort Auscultation: clear to auscultation bilaterally Cardio Rate: regular rate Rhythm: regular rhythm Heart sounds: S1 normal heart sound present, S2 normal heart sound present, no gallops, no murmurs and no rubs GI Palpation (GI): No Abdominal aortic bruit present, Soft to palpation, nontender, No hepatosplenomegaly present and No Rebound tenderness present Auscultation: normal bowel sounds General: Yes no CVA tenderness Back/Spine/Pelvis Back: no CVA tenderness Cervical Spine: cervical ROM normal and Right-sided Cervical spine tenderness Thoracic/Lumbar Spine: thoraco-lumbar ROM normal, No pain with thoraco-lumbar ROM, No thoracic spinal tenderness and No lumbar spinal tenderness Extrem General: Yes normal to inspection, No edema and No calf tenderness Skin General: warm and dry. Normal skin color. Normal skin turgor Neuro General: patient oriented x3, gait normal and no focal neuro deficit Cranial nerves: Yes Equal, round and reactive pupils present Cognition (Neuro): normal cognition Gait exam (Neuro): Normal gait present Sensory Exam: No Sensory deficit (Neuro) Psych Appearance: grossly normal Affect: normal affect Attitude: cooperative Thought process: Normal thought process present Assessment and Plan Assessment & Plan (1) Neck pain: Code(s): M54.2 - Cervicalgia Plan: Right-sided neck pain for the past 1 month Right-sided cervical spine tenderness to palpation X-ray ordered Gabapentin ordered. Take as prescribed Take naproxen as prescribed Warm/cold compresses encouraged Advised to avoid heavy lifting Follow-up in 2 months for an extended physical exam return sooner with worsening or new symptoms Verbalized understanding and agreed with treatment plan (2) Cough: Code(s): R05.9 - Cough, unspecified Plan: Reports productive cough for the past 3 weeks. Positive COVID contact Likely viral illness although allergies is possible No evidence of bacterial infection There is no antibiotic medication for viruses.? They must run their course.? Most average 5-7 days but 7-10 days is not uncommon and up to 14 days is still possible.? A cough is often the last symptom to resolve and this can last for weeks in some cases. Rest Hydrate well -? Drink plenty of fluids.? Especially water. Tylenol or ibuprofen for muscle aches, headache, fever/discomfort Cannot rule out COVID-19/RSV/Flu infection Nasal swab acquired and will be sent to the lab Return for new or worsening symptoms Verbalized understanding and agreed with treatment plan. (3) Urinary frequency: Code(s): R35.0 - Frequency of micturition Plan: Reports urinary frequency for the past 2 weeks. No associated symptoms Urinalysis/culture ordered. Will review results and make changes as needed Adequate hydration encouraged Follow-up with worsening or new symptoms Verbalized understanding and agreed with treatment plan Orders: Orders SARS-CoV2/FLU/RSV Today R05.9 - Cough, unspecified UA CC w/rflx Micro + Cult Today R35.0 - Frequency of micturition XR soft tissue neck Today M54.2 - Cervicalgia Medications: New gabapentin 200 mg (2 x 100 mg) PO BID 60 caps 0RF Coding Level of Care Code Est Pt Level 4 (71240) Diagnoses Neck pain M54.2 Cough R05.9 Urinary frequency R35.0
[2023-04-26 16:27] VITALS: BP 120/76; PULSE 62; RESP 13; TEMP 36.4; O2SAT 99; BMI 28.7
== END 2023-04-26 16:52 | disposition home or self-care (01) ==
PROVIDERS: PCP Nurse Practitioner Family; Visit Provider Nurse Practitioner Family
DX: M54.2 Cervicalgia (principal); R05.9 Cough, unspecified; R35.0 Frequency of micturition
CPT/HCPCS: 99214

== ENCOUNTER 2023-04-26 16:56 | Outpatient (REF) | payer OTHER, SELFPAY | END 2023-04-26 16:57 | disposition home or self-care (01) | LOC: HO.LAB 16:56 | PROVIDERS: Visit Provider Nurse Practitioner Family | DX: R05.9 Cough, unspecified (principal); Z11.52 Encounter for screening for COVID-19; Z20.828 Contact with and (suspected) exposure to other viral communicable diseases | CPT/HCPCS: 0241U ==

== ENCOUNTER 2023-05-07 11:11 | Outpatient (REF) | payer OTHER, SELFPAY ==
--- NOTE | ~2023-05-07 | XR_ITS ---
EXAMINATION: XR SOFT TISSUE NECK CLINICAL INDICATION: Cervicalgia COMPARISON: None available. TECHNIQUE: 2 views of the soft tissue neck were obtained. FINDINGS: Cervical lordotic straightening. C4-C5 disc spacer is in place. Posterior elements are aligned. Mild C3-C4 and C6-C7 disc space narrowings and spurring. No prevertebral soft tissue swelling. Lung apices are clear. XR/XR soft tissue neck IMPRESSION: Cervical lordotic straightening, previous cervical spine surgery and degenerative type changes.
== END 2023-05-07 11:12 | disposition home or self-care (01) ==
LOC: HO.LAB 11:11
PROVIDERS: PCP Nurse Practitioner Family; Visit Provider Nurse Practitioner Family
DX: M54.2 Cervicalgia (principal)
CPT/HCPCS: 70360

== ENCOUNTER 2023-06-25 11:06 | Emergency (ER) | payer OTHER, MEDICAID, SELFPAY ==
[2023-06-25] VITALS (7 sets, daily range): BP systolic 159–190; BP diastolic 88–113; PULSE 59–63; RESP 14–18; TEMP 36.1–36.7; O2SAT 97–100; BMI 28.8
--- NOTE | ~2023-06-25 | CT_ITS ---
EXAMINATION: CT ANGIOGRAM CHEST CLINICAL INFORMATION: Chest pain. Hypertensive. Query dissection. COMPARISON: Chest radiograph dated 06/25/2023. TECHNIQUE: Multiple axial images were obtained through the chest after the administration of 50 mL of Omnipaque 350 intravenous contrast. Extensive vascular post-processing including two-dimensional and three-dimensional reformatted images were created and reviewed on an independent workstation. This CT examination was performed using dose optimization techniques as appropriate, variously including the following: *Automated exposure control *Adjustment of mA and/or kV according to patient size (this includes techniques or standardized protocols for targeted exams where dose is matched to indication/reason for exam; i.e. extremities or head) *Use of iterative reconstruction technique DLP: 325 mGy-cm FINDINGS: POLITICAL GEOGRAPHER FILM: The trachea is in normal anatomic position. Heart size is normal. Both lungs are clear. Pleural spaces are clear. There is no pneumothorax seen. There is no acute osseous abnormality. LUNGS: The trachea and central airways are widely patent. There is no consolidative process within either lung. There is no pulmonary mass. PLEURA: There is no pleural effusion or pneumothorax. No pleural thickening. No pleural mass lesion. MEDIASTINUM: The visualized thyroid gland is normal in appearance. Heart size is normal. No pericardial effusion. No coronary artery calcification is noted. There is no mediastinal or hilar adenopathy. VASCULAR STRUCTURES: The visualized aorta is normal in caliber. There is no evidence of dissection or aneurysm formation. There is no significant atherosclerotic disease. The main pulmonary artery is normal in caliber. There is no proximal or lobar pulmonary embolism. OSSEOUS STRUCTURES: No acute osseous abnormality. VISUALIZED ABDOMEN: Unremarkable. CT/CT angio chest aorta IMPRESSION: The visualized aorta is normal in caliber. There is no evidence of dissection or aneurysm formation. There is no significant atherosclerotic disease. There is no proximal or lobar pulmonary embolism. The lungs are clear. Fleischner guidelines were followed.
--- NOTE | ~2023-06-25 | XR_ITS ---
EXAMINATION: XR CHEST CLINICAL INFORMATION: Chest and back pain COMPARISON: 05/26/2022 TECHNIQUE: 2 views of the chest were obtained. FINDINGS: No significant abnormality is noted involving the heart, lungs, mediastinum, bony thorax or soft tissues. XR/XR chest 2V IMPRESSION: Unremarkable examination.
--- NOTE | 2023-06-25 11:09 | ECG_ITS ---
Test Reason : CHEST PAIN Blood Pressure : / mmHG Vent. Rate : 055 BPM Atrial Rate : 055 BPM P-R Int : 168 ms QRS Dur : 072 ms QT Int : 416 ms P-R-T Axes : 043 032 020 degrees QTc Int : 397 ms Sinus bradycardia Nonspecific T wave abnormality Abnormal ECG When compared with ECG of 26-MAY-2022 00:11, Nonspecific T wave abnormality, worse in Anterolateral leads Referred By: Generic ED Physician Electronically Signed By:Yvan Leyva
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
[2023-06-25 12:43] LABS: MANUAL DIFF FLAG NO
[2023-06-25 12:45] LABS: Basophils Percent Auto 0.7 % (0-2); Hematocrit 39.3 % (37.0-47.0); Hemoglobin 13.4 g/dl (12.0-16.0); Lymphocytes Absolute Auto 1.8 X10*3/uL (1.2-4.9); Lymphocytes Percent Auto 42.8 % (20-40); Mean Corpuscular HGB Conc 34.1 g/dl (31.0-35.0); Mean Corpuscular Hemoglobin 29.2 pg (27.0-33.0); Mean Corpuscular Volume 85.6 fL (80.0-98.0); Mean Platelet Volume 10.3 fL (9.4-12.3); Monocytes Absolute Auto 0.4 X10*3/uL (0.1-1.2); Monocytes Percent Auto 8.7 % (2-11); Neutrophils Percent Auto 46.8 % (45-73); Platelet Count 225 X10*3/uL (160-400); Red Blood Count 4.59 X10*6/uL (4.20-5.50); Red Cell Distribution Width 14.1 % (11.0-16.0); White Blood Count 4.2 X10*3/uL (4.8-10.8)
[2023-06-25 13:01] LABS: D Dimer High Sensitivity < 150 NG/ML
[2023-06-25 13:02] LABS: Alanine Aminotransferase 13 U/L (0-31); Albumin Level 4.3 g/dL (3.5-5.0); Alkaline Phosphatase 94 U/L (39-117); Anion Gap 10 (12-20); Aspartate Amino Transferase 15 U/L (5-31); Bilirubin Total 0.2 mg/dL (0.0-1.0); Blood Urea Nitrogen 10 mg/dL (9-16); Calcium 9.6 mg/dL (8.4-10.2); Carbon Dioxide 31 mmol/L (22-29); Chloride 106 mmol/L (96-108); Creatinine Clr Calc Pharmacy 89.7; Estimated Glomerular Filt Rate > 60; Glucose Random 116 mg/dL (60-115); Lipase 26 U/L (8-78); Magnesium 1.9 mg/dL (1.6-2.6); Potassium 3.8 mmol/L (3.3-5.1); Sodium 143 mmol/L (135-145); Total Protein 7.3 g/dL (6.5-8.0)
[2023-06-25 13:10] LABS: Troponin-I High Sensitivity < 2.7 ng/L (<3.5-17.0)
[2023-06-25 13:29] LABS: Influenza A PCR NEGATIVE (Negative); Influenza B PCR NEGATIVE (Negative); Resp Syncy Virus RNA Qual PCR NEGATIVE (Negative); SARS COV2 PCR INHOUSE NEGATIVE (Negative)
[2023-06-25 16:20] LABS: Appearance Urine Cloudy; Color Urine Yellow; Glucose Urine UA Negative (Negative); Leukocyte Esterase Urine Negative (Negative); Nitrite Urine Negative (Negative); Urine Blood Negative (Negative); Urine Ketones Negative (Negative); Urine Protein Negative (Neg-Trace)
[2023-06-25 16:22] LABS: UPreg QC Valid YES; Urine Pregnancy NEGATIVE (NEGATIVE)
[2023-06-25] MEDS: Labetalol HCL 100 MG/20 ML VIAL 10 MG IVPUSH (19:35)
[2023-06-25] MEDS: 0.9 % Sodium Chloride 1,000 ML 999 ML IV (19:35)
[2023-06-25] MEDS: Ketorolac Tromethamine 15 MG/ML VIAL IVPUSH (19:36)
[2023-06-25 20:01] LABS: Troponin-I High Sensitivity < 2.7 ng/L (<3.5-17.0)
[2023-06-25] MEDS: iohexoL 350 MG/ML 100 ML INFUS..BTL 70 ML IV (21:33)
== END 2023-06-25 22:59 | disposition home or self-care (01) ==
PROVIDERS: Nurse Practitioner Family; Physician Assistant Medical; Emergency Provider Emergency Medicine; PCP Nurse Practitioner Family
DX: R07.9 Chest pain, unspecified (principal); I10 Essential (primary) hypertension; Z11.52 Encounter for screening for COVID-19; Z20.828 Contact with and (suspected) exposure to other viral communicable diseases
CPT/HCPCS: 0241U; 36415; 71046; 71275; 80053; 81003; 81025; 83690; 83735; 84484; 85025; 85379; 93005; 96361; 96374; 96375; 99284; 99285; J1885; J1920; Q9967

== ENCOUNTER → 2023-06-25 11:09 | Outpatient (BNV) | payer OTHER, SELFPAY | PROVIDERS: Emergency Provider Emergency Medicine; PCP Nurse Practitioner Family; Visit Provider Internal Medicine Cardiovascular Disease | DX: R00.1 Bradycardia, unspecified (principal) | CPT/HCPCS: 93010 ==

== ENCOUNTER 2023-06-29 12:45 | Outpatient (AMB) | payer OTHER, SELFPAY ==
--- NOTE | 2023-06-29 12:47 | MHC.PC.OV ---
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 Accompanied by: Self / Same As Patient Allergies morphine [MORPHINE] Allergy (Unknown, Verified 06/29/23 13:05) HIVES Medication List - Last Reconciled 06/29/23 by Gilles Mendez CNP amlodipine (Norvasc) 5 mg PO BID 30 days gabapentin 200 mg (2 x 100 mg) PO BID labetalol 100 mg PO BID 30 days methocarbamol 500 mg PO TID PRN naproxen 500 mg PO BID PRN nitroglycerin 0.4%(w/w) 1 inch [place] BEDTIME 4 weeks Tobacco use date assessed: 04/26/23 Dental Screening Dental Screen Date: 06/29/23 Did you have a dental visit in the last 12 months?: No Did you have a dental problem in the last 6 months where you did not have access to dental care?: No Was dental information given to patient?: Yes HPI HPI Comments History of Present Illness Details 38-year-old female presents for a follow-up visit She [place] [facility] [place] for midsternal chest pain. She was hypertensive. She admitted to not taking her blood pressure medications for 1 week. Imaging and labs were unremarkable. She was discharged with instructions to follow-up with PCP or return to the ED She denies CP or associated symptoms at this time She admits to taking her medications as prescribed without adverse reactions. She notes that she stopped taking her antihypertensives a week before she went to the ED because she ran out of refills She notes that I've been stressed out due to school, work, and living situation. She notes that I can't get a break at home. She is with 2 stepchildren. She states that she feels overworked with house chores and never feel supported. She is contemplating divorce but she worries about money and the stress regarding divorce. She is tearful throughout the interview. She notes that she feels same in her home. She denies SI/HI. She is willing to try medication for her anxiety. She has history of seeing a therapist and wish to connect with one at this time. [facility] Medical History Breast mass, right Family history of colon cancer Back pain Orbital fracture HTN (hypertension) Surgical History History of neck surgery Family History Mother HTN (hypertension) Father HTN (hypertension) Diabetes Leukemia Paternal Grandmother Intestinal cancer Other Alcoholism Social History Housing: Apartment Alcohol intake: never Patient Tobacco Use Status: Never used Tobacco e-Cigarette/Vaping Use: Never Used Substance Use Type: Marijuana Advance Directives Date on File: 07/02/20 service: No Current occupational status: employed and student Current occupation: [employer] Current occupational exposures/hazards: Yes Cognitive needs: No Hearing needs: No Vision needs: Yes Female Reproductive History Menstrual Age of Menarche: 10 Questionnaire PHQ-9 Over the last 2 weeks, how often have you been bothered by any of the following problems? 1. Little interest or pleasure in doing things: several days 2. Feeling down, depressed, or hopeless: several days 3. Trouble falling or staying asleep, or sleeping too much: nearly every day (Staying Asleep) 4. Feeling tired or having little energy: nearly every day 5. Poor appetite or overeating: several days 6. Feeling bad about yourself - or that you are a failure or have let yourself or your family down: not at all 7. Trouble concentrating on things, such as reading the newspaper or watching television: several days 8. Moving or speaking so slowly that other people could have noticed. Or the opposite - being so fidgety or restless that you have been moving around a lot more than usual: nearly every day 9. Thoughts that you would be better off or of hurting yourself in some way: not at all Total score: 13 Depression Screening Interpretation: Positive Depression Screening Follow-up: Existing condition, In treatment and New Medication prescribed Depression Screening Done: Yes 60326 - PHQ-9 Billing: Yes Source: Developed by Drs. Jeovany Madsen, Jie Crenshaw, Radhames Renee and colleagues, with an educational lou from [facility]. Thrive Questionnaire Date Thrive assessed: 06/06/22 PORTIA-7 AMB Questionnaire PORTIA-7 Date PORTIA - 7 assessed: 06/29/23 Feeling nervous, anxious, or on edge: 2 = More than half the days Not being able to stop or control worryin = Nearly every day Worrying too much about different things: 3 = Nearly every day Trouble relaxin = Several days Being so restless that it is hard to sit still: 3 = Nearly every day Becoming easily annoyed or irritable: 1 = Several days Feeling afraid as if something awful might happen: 0 = Not at all Total PORTIA-7 score (0-4 normal; 5-9 mild; 10-14 moderate; 15-21 severe): 13 Source: Developed by Drs. Jeovany Madsen, Jie Crenshaw, Radhames Renee and colleagues, with an educational lou from [facility]. PORTIA-7 Assessment Billing PORTIA-7 Assessment Tool: PORTIA-7 Assessment 74346 Review of Systems Const Details: Const Denies chills, Denies fatigue, Denies fever(s), Denies headache(s) and Denies weakness ENT Denies dizziness and Denies headache(s) Card Denies chest pain, Denies lightheadedness, Denies dyspnea and Denies other (Palpitations) Resp Denies cough, Denies dyspnea, Denies wheezing and Denies other ( shortness of breath) GI Denies abdominal pain, Denies melena, Denies hematochezia, Denies change in bowel habits, Denies dyspepsia and Denies nausea Denies hematuria and Denies dysuria Musc Denies abnormal gait, Denies myalgias, Denies arthralgias, Denies numbness and Denies tingling Skin/Breast Denies rash, Denies unusual bruising and Denies wounds Neuro Denies abnormal gait, Denies dizziness, Denies headache(s), Denies memory loss, Denies numbness, Denies Sensory deficit (Neuro), Denies tingling and Denies weakness Psych Denies anxiety, Denies depression, Denies memory loss Endo Denies cold intolerance, Denies fatigue, Denies heat intolerance, Denies polydipsia and Denies polyuria Aller/Immun Denies wheezing Physical exam (Primary Care) Vital Signs: Last Vital Signs Temp 97.3 F 06/29/23 12:49 Pulse 75 06/29/23 12:49 Resp 13 06/29/23 12:49 BP 160/100 H 06/29/23 12:49 Pulse Ox 99 06/29/23 12:49 Oxygen Delivery Method Room Air 06/29/23 12:49 BMI result Body Mass Index 28.9 Tobacco/Smoking Status: Tobacco use Status Tobacco use date assessed 04/26/23 06/29/23 12:56 Patient Tobacco Use Status Never used Tobacco 06/29/23 12:56 e-Cigarette/Vaping Use Never Used 06/29/23 12:56 PHQ-9: PHQ-9 Score PHQ-9: Total score 13 06/29/23 13:34 Depression Screening Interpretation: Positive Depression Screening Follow-up: Existing condition, In treatment and New Medication prescribed Thrive Assessment: Date of Thrive Assessment Date Thrive assessed 06/06/22 06/29/23 12:56 Const Other: General: no acute distress and well developed Nutritional Appearance: well nourished Orientation/consciousness: patient oriented x3 HENMT Head: Yes normocephalic and Yes atraumatic Eyes General: appearance normal, both eyes and all related structures Pupils: Equal, round and reactive pupils present EOM: EOMs intact bilaterally Resp Effort & Inspection: normal respiratory effort Auscultation: clear to auscultation bilaterally Cardio Rate: regular rate Rhythm: regular rhythm Heart sounds: S1 normal heart sound present, S2 normal heart sound present, no gallops, no murmurs and no rubs GI Palpation (GI): No Abdominal aortic bruit present, Soft to palpation, nontender, No hepatosplenomegaly present and No Rebound tenderness present Auscultation: normal bowel sounds General: Yes no CVA tenderness Back/Spine/Pelvis Back: no CVA tenderness Cervical Spine: cervical ROM normal and No Cervical spine tenderness Thoracic/Lumbar Spine: thoraco-lumbar ROM normal, No pain with thoraco-lumbar ROM, No thoracic spinal tenderness and No lumbar spinal tenderness Extrem General: Yes normal to inspection, No edema and No calf tenderness Skin General: warm and dry. Normal skin color. Normal skin turgor Neuro General: patient oriented x3, gait normal and no focal neuro deficit Cranial nerves: Yes Equal, round and reactive pupils present Cognition (Neuro): normal cognition Gait exam (Neuro): Normal gait present Sensory Exam: No Sensory deficit (Neuro) Psych Appearance: grossly normal Affect: normal affect Attitude: cooperative Thought process: Normal thought process present Assessment and Plan Assessment & Plan (1) Anxiety and depression: Code(s): F41.9 - Anxiety disorder, unspecified; F32.A - Depression, unspecified Plan: Reports increased anxiety and depression symptoms related to school, work, and marital stressors PHQ-9 and PORTIA-7 scores revealed moderate depression and anxiety Fluoxetine ordered. Take as prescribed. Risk and benefits and potential side effects discussed Routine exercise encouraged Message sent to the community navigator to help the patient connect to a therapist Follow-up in 2 weeks or return sooner with worsening or new symptoms Verbalized understanding and agreed with treatment plan (2) HTN (hypertension): Code(s): I10 - Essential (primary) hypertension Plan: Chest pain has resolved Resting blood pressure is 100/60, above goal of less than 140/90 Will increase amlodipine to 10 mg daily. Take as prescribed Continue to take labetalol 100 mg twice daily Low-sodium diet and routine exercise encouraged Follow-up in 2 weeks or return sooner with symptoms or concerns Verbalized understanding and agreed with treatment plan Orders: Referrals Nurse Navigator Referral F32.A - Depression, unspecified, F41.9 - Anxiety disorder, unspecified Medications: New amlodipine 10 mg PO DAILY 30 tabs 3RF 30 days fluoxetine 20 mg PO DAILY 30 tabs 3RF 30 days Discontinued amlodipine (Norvasc) Discontinued Reason: Doctor's Order 5 mg PO BID 30 days 60 tabs 4RF Coding Level of Care Code Est Pt Level 4 (44700) Diagnoses Anxiety and depression F41.9; F32.A HTN (hypertension) I10 Additional Codes PORTIA-7 Assessment Billing - PORTIA-7 Assessment Tool: PORTIA-7 Assessment 23719 ([id number])
[2023-06-29 12:49] VITALS: BP 160/100; PULSE 75; RESP 13; TEMP 36.3; O2SAT 99; BMI 28.9
== END 2023-06-29 13:34 | disposition home or self-care (01) ==
PROVIDERS: PCP Nurse Practitioner Family; Visit Provider Nurse Practitioner Family
DX: F41.9 Anxiety disorder, unspecified (principal); F32.A Depression, unspecified; I10 Essential (primary) hypertension
CPT/HCPCS: 96127; 99214

== ENCOUNTER 2023-07-02 09:49 | Outpatient (AMB) | payer OTHER, SELFPAY ==
[2023-07-02 09:55] VITALS: BP 140/80; PULSE 72; RESP 13; TEMP 36.3; O2SAT 99; BMI 28.1
--- NOTE | 2023-07-02 09:55 | MHC.PC.OV ---
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 Accompanied by: Self / Same As Patient Allergies morphine [MORPHINE] Allergy (Unknown, Verified 07/02/23 10:23) HIVES Seasonal Allergies Adverse Reaction (Intermediate, Verified 07/02/23 10:23) Itchy Eyes Medication List - Last Reconciled 07/02/23 by Gilles Mendez CNP amlodipine 10 mg PO DAILY 30 days fluoxetine 20 mg PO DAILY 30 days gabapentin 200 mg (2 x 100 mg) PO BID labetalol 100 mg PO BID 30 days methocarbamol 500 mg PO TID PRN naproxen 500 mg PO BID PRN nitroglycerin 0.4%(w/w) 1 inch [place] BEDTIME 4 weeks Tobacco use date assessed: 04/26/23 Dental Screening Dental Screen Date: 07/02/23 Did you have a dental visit in the last 12 months?: No Did you have a dental problem in the last 6 months where you did not have access to dental care?: No Was dental information given to patient?: Yes HPI HPI Comments History of Present Illness Details 38-year-old female, accompanied by , presents with complaints of loss of voice, headache, body aches, and fatigue. Her symptoms have been ongoing for a week ago and have progressively gotten worse. She denies fever or chills. She has been taking Tylenol with some relief. She notes that she was in the ED last Sunday for different complaints; another patient around her was tested positive for COVID PFSH Medical History Breast mass, right Family history of colon cancer Back pain Orbital fracture HTN (hypertension) Surgical History History of neck surgery Family History Mother HTN (hypertension) Father HTN (hypertension) Diabetes Leukemia Paternal Grandmother Intestinal cancer Other Alcoholism Social History Housing: Apartment Alcohol intake: never Patient Tobacco Use Status: Never used Tobacco e-Cigarette/Vaping Use: Never Used Substance Use Type: Marijuana Advance Directives Date on File: 07/02/20 service: No Current occupational status: employed and student Current occupation: [employer] Current occupational exposures/hazards: Yes Cognitive needs: No Hearing needs: No Vision needs: No Female Reproductive History Menstrual Age of Menarche: 10 Questionnaire Thrive Questionnaire Date Thrive assessed: 06/06/22 PORTIA-7 AMB Questionnaire PORTIA-7 Date PORTIA - 7 assessed: 06/29/23 Source: Developed by Drs. Jeovany Madsen, Jie Crenshaw, Radhames Renee and colleagues, with an educational lou from [employer]. Review of Systems Const Details: Denies chills, Reports fatigue, Denies fever(s), Reports headache(s) and Denies weakness HEENT Reports as per HPI Card Denies chest pain, Denies lightheadedness, Denies dyspnea and Denies other (palpitations) Resp Denies cough, Denies dyspnea and Denies wheezing GI Denies abdominal pain, Denies melena, Denies hematochezia, Denies change in bowel habits, Denies dyspepsia and Denies nausea Denies hematuria and Denies dysuria Musc Denies abnormal gait, Denies myalgias, Denies arthralgias, Denies numbness and Denies tingling Skin/Breast Denies rash, Denies unusual bruising and Denies wounds Neuro Denies abnormal gait, Denies dizziness, Reports headache(s), Denies memory loss, Denies numbness, Denies Sensory deficit (Neuro), Denies tingling and Denies weakness Psych Denies anxiety, Denies depression and Denies memory loss Endo Denies cold intolerance, Reports fatigue, Denies heat intolerance, Denies polydipsia and Denies polyuria Kwesi/Lymph Denies easy bleeding and Denies easy bruising Aller/Immun Denies wheezing Physical exam (Primary Care) Vital Signs: Last Vital Signs Temp 97.4 F 07/02/23 09:55 Pulse 72 07/02/23 09:55 Resp 13 07/02/23 09:55 BP 140/80 H 07/02/23 09:55 Pulse Ox 99 07/02/23 09:55 Oxygen Delivery Method Room Air 07/02/23 09:55 BMI result Body Mass Index 28.1 Tobacco/Smoking Status: Tobacco use Status Tobacco use date assessed 04/26/23 07/02/23 10:03 Patient Tobacco Use Status Never used Tobacco 07/02/23 10:03 e-Cigarette/Vaping Use Never Used 07/02/23 10:03 Thrive Assessment: Date of Thrive Assessment Date Thrive assessed 06/06/22 07/02/23 10:03 Const Other: General: no acute distress, well developed, alert and awake Nutritional Appearance: well nourished Orientation/consciousness: patient oriented x3 HENMT Head: Yes normocephalic and Yes atraumatic Ears: hearing grossly normal bilaterally and TM's normal bilaterally General nose exam: Normal external nose present and Normal nares present Mouth: Normal oral and palatal mucosa present and moist mucous membranes Teeth and gingiva: dentition normal Throat: Yes oropharynx normal Eyes Pupils: Equal, round and reactive pupils present and Pupil accommodation reflex normal EOM: EOMs intact bilaterally Neck Neck: Yes normal visual inspection, Yes no lymphadenopathy and Yes trachea midline Thyroid: Thyroid normal Carotids: no bruits Lymphatic: no lymphadenopathy noted Chest Chest palpation & inspection: normal inspection of the chest Resp Effort & Inspection: normal respiratory effort Auscultation: clear to auscultation bilaterally Cardio Rate: regular rate Rhythm: regular rhythm Heart sounds: S1 normal heart sound present, S2 normal heart sound present, no gallops, no murmurs and no rubs Bruits: no abdominal aortic bruits and no carotid bruits GI Palpation (GI): No Abdominal aortic bruit present, Soft to palpation, nontender, No hepatosplenomegaly present and No Rebound tenderness present Auscultation: normal bowel sounds General: Yes no CVA tenderness Back/Spine/Pelvis Back: no CVA tenderness Cervical Spine: cervical ROM normal and No Cervical spine tenderness Thoracic/Lumbar Spine: thoraco-lumbar ROM normal, No pain with thoraco-lumbar ROM, No thoracic spinal tenderness and No lumbar spinal tenderness Skin General: warm and dry. Normal skin color. Normal skin turgor Neuro General: patient oriented x3, gait normal and CN's II-XI intact bilaterally Cranial nerves: Yes Equal, round and reactive pupils present Cognition (Neuro): normal cognition Gait exam (Neuro): Normal gait present Motor exam (neuro): 5/5 motor strength present throughout Sensory Exam: No Sensory deficit (Neuro) Deep tendon reflexes (DTR's): Right patellar reflex intensity grade: 2+ and Left patellar reflex intensity grade: 2+ Extrem General: Yes normal to inspection, No edema and No calf tenderness Psych Appearance: grossly normal Affect: normal affect Attitude: cooperative Thought process: Normal thought process present Assessment and Plan Assessment & Plan (1) Viral upper respiratory illness: Code(s): J06.9 - Acute upper respiratory infection, unspecified Plan: Likely viral illness though possibly allergies. No exam evidence of bacterial infection Viral illness There is no antibiotic medication for viruses.? They must run their course.? Most average 5-7 days but 7-10 days is not uncommon and up to 14 days is still possible.? A cough is often the last symptom to resolve and this can last for weeks in some cases. Rest Hydrate well -? Drink plenty of fluids.? Especially water. Tylenol or ibuprofen for muscle aches, headache, fever/discomfort Cannot rule out COVID-19/RSV/Flu infection Nasal swab acquired and will be sent to the lab Return for new or worsening symptoms Verbalized understanding and agreed with treatment plan. Orders: Orders SARS-CoV2/FLU/RSV Today R09.89 - Other specified symptoms and signs involving the circulatory and respiratory systems Coding Level of Care Code Est Pt Level 3 (07207) Diagnoses Viral upper respiratory illness J06.9
== END 2023-07-02 10:33 | disposition home or self-care (01) ==
PROVIDERS: PCP Nurse Practitioner Family; Visit Provider Nurse Practitioner Family
DX: J06.9 Acute upper respiratory infection, unspecified (principal)
CPT/HCPCS: 99213

== ENCOUNTER 2023-07-02 11:20 | Outpatient (REF) | payer OTHER, SELFPAY ==
[2023-07-02 15:34] LABS: Influenza A PCR NEGATIVE (Negative); Influenza B PCR NEGATIVE (Negative); Resp Syncy Virus RNA Qual PCR NEGATIVE (Negative); SARS COV2 PCR INHOUSE NEGATIVE (Negative)
== END 2023-07-02 11:21 | disposition home or self-care (01) ==
LOC: HO.LAB 11:20
PROVIDERS: Visit Provider Nurse Practitioner Family
DX: R09.89 Other specified symptoms and signs involving the circulatory and respiratory systems (principal); Z11.52 Encounter for screening for COVID-19; Z20.828 Contact with and (suspected) exposure to other viral communicable diseases
CPT/HCPCS: 0241U

== ENCOUNTER 2023-07-06 09:41 | Outpatient (AMB) | payer OTHER, SELFPAY ==
--- NOTE | 2023-07-06 09:42 | A.OFFPC_ITS ---
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4%(w/w) 1 inch MT BEDTIME 4 weeks Tobacco use date assessed: 04/26/23 Dental Screening Dental Screen Date: 07/06/23 Did you have a dental visit in the last 12 months?: No Did you have a dental problem in the last 6 months where you did not have access to dental care?: No Was dental information given to patient?: Patient has dentist HPI HPI Comments History of Present Illness Details 38-year-old female presents with complai nts of upper respiratory symptoms. She notes that his symptoms have significantly improved since her last visit She was evaluated and treated 4 days ago for upper respiratory viral symptoms. She tested negative for COVID/flu/RSV She notes her only symptoms at this time are nasal congestion, intermittent cough with brownish sputum, postnasal drip, and fatigue. She returned to work yesterday She reports significant anxiety and depression symptoms on fluoxetine She admits to taking her medications as prescribed without adverse reactions [facility] Medical History Breast mass, right Family history of colon cancer Back pain Orbital fracture HTN (hypertension) Surgical History History of neck surgery Family History Mother HTN (hypertension) Father HTN (hypertension) Diabetes Leukemia Paternal Grandmother Intestinal cancer Other Alcoholism Social History Housing: Apartment Alcohol intake: never Patient Tobacco Use Status: Never used Tobacco e-Cigarette/Vaping Use: Never Used Substance Use Type: Marijuana Advance Directives Date on File: 07/02/20 service: No Current occupational status: employed and student Current occupation: [employer] Current occupational exposures/hazards: Yes Cognitive needs: No Hearing needs: No Vision needs: No Female Reproductive History Menstrual Age of Menarche: 10 Questionnaire PHQ-9 Over the last 2 weeks, how often have you been bothered by any of the following problems? 1. Little interest or pleasure in doing things: not at all 2. Feeling down, depressed, or hopeless: not at all 3. Trouble falling or staying asleep, or sleeping too much: not at all 4. Feeling tired or having little energy: several days 5. Poor appetite or overeating: several days 6. Feeling bad about yourself - or that you are a failure or have let yourself or your family down: not at all 7. Trouble concentrating on things, such as reading the newspaper or watching television: several days 8. Moving or speaking so slowly that other people could have noticed. Or the opposite - being so fidgety or restless that you have been moving around a lot more than usual: not at all 9. Thoughts that you would be better off or of hurting yourself in some way: not at all Total score: 3 Depression Screening Interpretation: Negative Depression Screening Done: Yes Source: Developed by Drs. Jeovany Madsen, Jie Crenshaw, Radhames Renee and colleagues, with an educational lou from [employer]. Thrive Questionnaire Date Thrive assessed: 06/06/22 PORTIA-7 AMB Questionnaire PORTIA-7 Date PORTIA - 7 assessed: 06/29/23 Feeling nervous, anxious, or on edge: 1 = Several days Not being able to stop or control worryin = Several days Worrying too much about different things: 1 = Several days Trouble relaxin = More than half the days Being so restless that it is hard to sit still: 0 = Not at all Becoming easily annoyed or irritable: 0 = Not at all Feeling afraid as if something awful might happen: 0 = Not at all Total PORTIA-7 score (0-4 normal; 5-9 mild; 10-14 moderate; 15-21 severe): 5 Source: Developed by Drs. Jeovany Madsen, Jie Crenshaw, Radhames Renee and colleagues, with an educational lou from [employer]. Review of Systems Const Details: Const Denies chills, Reports fatigue, Denies fever(s), Denies headache(s) and Denies weakness ENT Denies dizziness and Denies headache(s) Card Denies chest pain, Denies lightheadedness, Denies dyspnea and Denies other (Palpitations) Resp Reports cough, Denies dyspnea, Denies wheezing and Denies other ( shortness of breath) GI Denies abdominal pain, Denies melena, Denies hematochezia, Denies change in bowel habits, Denies dyspepsia and Denies nausea Denies hematuria and Denies dysuria Musc Denies abnormal gait, Denies myalgias, Denies arthralgias, Denies numbness and Denies tingling Skin/Breast Denies rash, Denies unusual bruising and Denies wounds Neuro Denies abnormal gait, Denies dizziness, Denies headache(s), Denies memory loss, Denies numbness, Denies Sensory deficit (Neuro), Denies tingling and Denies weakness Psych Denies anxiety, Denies depression, Denies memory loss Endo Denies cold intolerance, Reports fatigue, Denies heat intolerance, Denies polydipsia and Denies polyuria Aller/Immun Denies wheezing Physical exam (Primary Care) Vital Signs: Last Vital Signs Temp 97.8 F 07/06/23 09:43 Pulse 72 07/06/23 09:43 Resp 13 07/06/23 09:43 BP 146/90 H 07/06/23 09:43 Pulse Ox 99 07/06/23 09:43 Oxygen Delivery Method Room Air 07/06/23 09:43 BMI result Body Mass Index 29.7 Tobacco/Smoking Status: Tobacco use Status Tobacco use date assessed 04/26/23 07/06/23 09:51 Patient Tobacco Use Status Never used Tobacco 07/06/23 09:51 e-Cigarette/Vaping Use Never Used 07/06/23 09:51 Depression Screening Interpretation: Negative Thrive Assessment: Date of Thrive Assessment Date Thrive assessed 06/06/22 07/06/23 09:51 Const Other: General: no acute distress and well developed Nutritional Appearance: well nourished Orientation/consciousness: patient oriented x3 HENMT Head is normocephalic Bilateral ear canal and TM are normal Nasal turbinates and oropharynx are pink and moist Sinuses are nontender with palpation No auricular or cervical lymphadenopathy Eyes General: appearance normal, both eyes and all related structures Pupils: Equal, round and reactive pupils present EOM: EOMs intact bilaterally Resp Effort & Inspection: normal respiratory effort Auscultation: clear to auscultation bilaterally Cardio Rate: regular rate Rhythm: regular rhythm Heart sounds: S1 normal heart sound present, S2 normal heart sound present, no gallops, no murmurs and no rubs GI Palpation (GI): No Abdominal aortic bruit present, Soft to palpation, nontender, No hepatosplenomegaly present and No Rebound tenderness present Auscultation: normal bowel sounds General: Yes no CVA tenderness Back/Spine/Pelvis Back: no CVA tenderness Cervical Spine: cervical ROM normal and No Cervical spine tenderness Thoracic/Lumbar Spine: thoraco-lumbar ROM normal, No pain with thoraco-lumbar ROM, No thoracic spinal tenderness and No lumbar spinal tenderness Extrem General: Yes normal to inspection, No edema and No calf tenderness Skin General: warm and dry. Normal skin color. Normal skin turgor Neuro General: patient oriented x3, gait normal and no focal neuro deficit Cranial nerves: Yes Equal, round and reactive pupils present Cognition (Neuro): normal cognition Gait exam (Neuro): Normal gait present Sensory Exam: No Sensory deficit (Neuro) Psych Appearance: grossly normal Affect: normal affect Attitude: cooperative Thought process: Normal thought process present Assessment and Plan Assessment & Plan (1) Viral upper respiratory illness: Code(s): J06.9 - Acute upper respiratory infection, unspecified Plan: Symptoms have significantly improved Lung sounds clear bilaterally Adequate hydration and rest encouraged Follow-up with worsening or new symptoms Verbalized understanding and agreed with treatment plan (2) HTN (hypertension): Code(s): I10 - Essential (primary) hypertension Plan: Resting blood pressure is 140/90, slightly above goal of less than 140/90 Continue current treatment regimen Low-sodium diet encouraged Follow-up in 2 weeks or return sooner with symptoms or concerns Verbalized understanding and agreed with treatment plan (3) Anxiety and depression: Code(s): F41.9 - Anxiety disorder, unspecified; F32.A - Depression, unspecified Plan: Significant improvement of anxiety and depression symptoms on current treatment regimen PHQ-9 score is normal. PORTIA-7 score reveals mild anxiety Continue to take fluoxetine 20 mg daily Routine exercise encouraged Follow-up in 2 weeks or return sooner with worsening or new symptoms Verbalized understanding and agreed with treatment plan Coding Level of Care Code Est Pt Level 3 (28322) Diagnoses Viral upper respiratory illness J06.9 HTN (hypertension) I10 Anxiety and depression F41.9; F32.A
[2023-07-06 09:43] VITALS: BP 146/90; PULSE 72; RESP 13; TEMP 36.6; O2SAT 99; BMI 29.7
[2023-07-06 10:06] VITALS: BP 140/90
== END 2023-07-06 10:32 | disposition home or self-care (01) ==
PROVIDERS: PCP Nurse Practitioner Family; Visit Provider Nurse Practitioner Family
DX: J06.9 Acute upper respiratory infection, unspecified (principal); I10 Essential (primary) hypertension; F41.9 Anxiety disorder, unspecified; F32.A Depression, unspecified
CPT/HCPCS: 99213

== ENCOUNTER 2023-07-20 16:13 | Outpatient (AMB) | payer OTHER, SELFPAY ==
[2023-07-20 16:17] VITALS: BP 150/76; PULSE 76; RESP 13; TEMP 36.2; O2SAT 98; BMI 28.9
--- NOTE | 2023-07-20 16:17 | MHC.PC.OV ---
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4%(w/w) 1 inch DC BEDTIME 4 weeks Tobacco use date assessed: 04/26/23 Dental Screening Dental Screen Date: 07/20/23 Did you have a dental visit in the last 12 months?: No Did you have a dental problem in the last 6 months where you did not have access to dental care?: No Was dental information given to patient?: Yes HPI HPI Comments History of Present Illness Details 38-year-old female presents for hypertension, anxiety, and depression follow-up She admits to taking her medications as prescribed without adverse reactions Fluoxetine was ordered 2 weeks ago. She reports significant improvement of her anxiety and depression symptoms. She also reports adequate sleep. She denies anxiety and depression symptoms at this [facility] Medical History Breast mass, right Family history of colon cancer Back pain Orbital fracture HTN (hypertension) Surgical History History of neck surgery Family History Mother HTN (hypertension) Father HTN (hypertension) Diabetes Leukemia Paternal Grandmother Intestinal cancer Other Alcoholism Social History Housing: Apartment Alcohol intake: never Patient Tobacco Use Status: Never used Tobacco e-Cigarette/Vaping Use: Never Used Substance Use Type: Marijuana Advance Directives Date on File: 07/02/20 service: No Current occupational status: employed and student Current occupation: [employer] Current occupational exposures/hazards: Yes Cognitive needs: No Hearing needs: No Vision needs: No Female Reproductive History Menstrual Age of Menarche: 10 Questionnaire PHQ-9 Over the last 2 weeks, how often have you been bothered by any of the following problems? 1. Little interest or pleasure in doing things: nearly every day 2. Feeling down, depressed, or hopeless: not at all 3. Trouble falling or staying asleep, or sleeping too much: nearly every day 4. Feeling tired or having little energy: nearly every day 5. Poor appetite or overeating: nearly every day (poor appetite) 6. Feeling bad about yourself - or that you are a failure or have let yourself or your family down: not at all 7. Trouble concentrating on things, such as reading the newspaper or watching television: several days 8. Moving or speaking so slowly that other people could have noticed. Or the opposite - being so fidgety or restless that you have been moving around a lot more than usual: not at all 9. Thoughts that you would be better off or of hurting yourself in some way: not at all Total score: 13 Depression Screening Interpretation: Positive Depression Screening Follow-up: Existing condition and In treatment Depression Screening Done: Yes 09227 - PHQ-9 Billing: Yes Source: Developed by Drs. Jeovany Madsen, Jie Crenshaw, Radhames Renee and colleagues, with an educational lou from [employer]. Thrive Questionnaire Date Thrive assessed: 06/06/22 PORTIA-7 AMB Questionnaire PORTIA-7 Date PORTIA - 7 assessed: 07/20/23 Feeling nervous, anxious, or on edge: 0 = Not at all Not being able to stop or control worryin = Several days Worrying too much about different things: 1 = Several days Trouble relaxin = Several days Being so restless that it is hard to sit still: 0 = Not at all Becoming easily annoyed or irritable: 0 = Not at all Feeling afraid as if something awful might happen: 1 = Several days Total PORTIA-7 score (0-4 normal; 5-9 mild; 10-14 moderate; 15-21 severe): 4 Source: Developed by Drs. Jeovany Madsen, Jie Crenshaw, Radhames Renee and colleagues, with an educational lou from [employer]. PORTIA-7 Assessment Billing PORTIA-7 Assessment Tool: PORTIA-7 Assessment 94279 Review of Systems Const Details: Const Denies chills, Denies fatigue, Denies fever(s), Denies headache(s) and Denies weakness ENT Denies dizziness and Denies headache(s) Card Denies chest pain, Denies lightheadedness, Denies dyspnea and Denies other (Palpitations) Resp Denies cough, Denies dyspnea, Denies wheezing and Denies other ( shortness of breath) GI Denies abdominal pain, Denies melena, Denies hematochezia, Denies change in bowel habits, Denies dyspepsia and Denies nausea Denies hematuria and Denies dysuria Musc Denies abnormal gait, Denies myalgias, Denies arthralgias, Denies numbness and Denies tingling Skin/Breast Denies rash, Denies unusual bruising and Denies wounds Neuro Denies abnormal gait, Denies dizziness, Denies headache(s), Denies memory loss, Denies numbness, Denies Sensory deficit (Neuro), Denies tingling and Denies weakness Psych Denies anxiety, Denies depression, Denies memory loss Endo Denies cold intolerance, Denies fatigue, Denies heat intolerance, Denies polydipsia and Denies polyuria Aller/Immun Denies wheezing Physical exam (Primary Care) Tobacco/Smoking Status: Tobacco use Status Tobacco use date assessed 04/26/23 07/06/23 09:51 Patient Tobacco Use Status Never used Tobacco 07/06/23 09:51 e-Cigarette/Vaping Use Never Used 07/06/23 09:51 Depression Screening Interpretation: Positive Depression Screening Follow-up: Existing condition and In treatment Thrive Assessment: Date of Thrive Assessment Date Thrive assessed 06/06/22 07/06/23 09:51 Const Other: General: no acute distress and well developed Nutritional Appearance: well nourished Orientation/consciousness: patient oriented x3 HENMT Head: Yes normocephalic and Yes atraumatic Eyes General: appearance normal, both eyes and all related structures Pupils: Equal, round and reactive pupils present EOM: EOMs intact bilaterally Resp Effort & Inspection: normal respiratory effort Auscultation: clear to auscultation bilaterally Cardio Rate: regular rate Rhythm: regular rhythm Heart sounds: S1 normal heart sound present, S2 normal heart sound present, no gallops, no murmurs and no rubs GI Palpation (GI): No Abdominal aortic bruit present, Soft to palpation, nontender, No hepatosplenomegaly present and No Rebound tenderness present Auscultation: normal bowel sounds General: Yes no CVA tenderness Back/Spine/Pelvis Back: no CVA tenderness Cervical Spine: cervical ROM normal and No Cervical spine tenderness Thoracic/Lumbar Spine: thoraco-lumbar ROM normal, No pain with thoraco-lumbar ROM, No thoracic spinal tenderness and No lumbar spinal tenderness Extrem General: Yes normal to inspection, No edema and No calf tenderness Skin General: warm and dry. Normal skin color. Normal skin turgor Neuro General: patient oriented x3, gait normal and no focal neuro deficit Cranial nerves: Yes Equal, round and reactive pupils present Cognition (Neuro): normal cognition Gait exam (Neuro): Normal gait present Sensory Exam: No Sensory deficit (Neuro) Psych Appearance: grossly normal Affect: normal affect Attitude: cooperative Thought process: Normal thought process present Assessment and Plan Assessment & Plan (1) HTN (hypertension): Code(s): I10 - Essential (primary) hypertension Plan: Blood pressure is 134/80, within goal of less than 140/90 Continue current treatment regimen Low-sodium diet encouraged Advised to get fasting blood work done before next visit Follow-up in 1 month for an extended physical exam Return sooner with symptoms or concerns Verbalized understanding and agreed with treatment plan (2) Anxiety and depression: Code(s): F41.9 - Anxiety disorder, unspecified; F32.A - Depression, unspecified Plan: Significant improvement of anxiety and depression symptoms. No acute symptoms at this time Continue to take fluoxetine as prescribed Routine exercise encouraged Follow-up in 1 month or return sooner with symptoms or concerns Verbalized understanding and agreed with treatment plan Orders: Orders Vitamin D 25-OH Total Today E55.9 - Vitamin D deficiency, unspecified Glucose Fasting Today Z00.00 - Encounter for general adult medical examination without abnormal findings Lipid Panel Today Z00.00 - Encounter for general adult medical examination without abnormal findings TSH reflex Free T4 Today Z00.00 - Encounter for general adult medical examination without abnormal findings Medications: Discontinued gabapentin Discontinued Reason: Patient no longer taking 200 mg (2 x 100 mg) PO BID 60 caps 0RF naproxen Discontinued Reason: Patient no longer taking 500 mg PO BID PRN 60 tabs 1RF pain methocarbamol Discontinued Reason: Patient no longer taking 500 mg PO TID PRN 30 tabs 0RF spasms nitroglycerin 0.4%(w/w) Discontinued Reason: Patient no longer taking 1 inch DC BEDTIME 4 weeks 30 grams 1RF Coding Level of Care Code Est Pt Level 3 (33104) Diagnoses HTN (hypertension) I10 Anxiety and depression F41.9; F32.A Additional Codes PORTIA-7 Assessment Billing - PORTIA-7 Assessment Tool: PORTIA-7 Assessment 61860 ([id number])
[2023-07-20 16:29] VITALS: BP 134/80
== END 2023-07-20 16:42 | disposition home or self-care (01) ==
PROVIDERS: PCP Nurse Practitioner Family; Visit Provider Nurse Practitioner Family
DX: I10 Essential (primary) hypertension (principal); F41.9 Anxiety disorder, unspecified; F32.A Depression, unspecified
CPT/HCPCS: 99213

== ENCOUNTER 2023-11-26 09:12 | Outpatient (AMB) | payer OTHER, SELFPAY ==
--- NOTE | 2023-11-26 09:14 | MHC.OFFVIS ---
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 She has had a lot going on in her life her dog of acute kidney poisoning and stage 4 weeks ago and she has a lot of stressors and she saw some step children feeding the dog inappropriate foods and so she has got trust concerns. She additionally use wondering about fertility she and her have not had a baby even though he has other children. She is ambivalent about whether not she wants to conceive but just is curious she gets very regular cycles and they last 4-6 days. 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 She is had referrals for counseling but this waiting list everywhere she has not been able to reach her primary care provider when she has need to either. She also has had some lower abdominal discomfort for the last couple of days more on the right. Sometimes she also does not urinate in the complete string the way she used she does think she has gained weight and she does have issues with constipation. She has no dysuria and it does not hurt urinate. [facility] Medical History Breast mass, right Family history of colon cancer Back pain Orbital fracture HTN (hypertension) Surgical History History of neck surgery Family History Mother HTN (hypertension) Father HTN (hypertension) Diabetes Leukemia Paternal Grandmother Intestinal cancer Other Alcoholism Social History Housing: Apartment Alcohol intake: never Patient Tobacco Use Status: Never used Tobacco e-Cigarette/Vaping Use: Never Used Substance Use Type: Marijuana Advance Directives Date on File: 07/02/20 service: No Current occupational status: employed and student Current occupation: [employer] Current occupational exposures/hazards: Yes Cognitive needs: No Hearing needs: No Vision needs: No Female Reproductive History Menstrual Age of Menarche: 10 Duration of menses: 3-5 days Date of last menstrual period: 10/26/23 control method: none Total pregnancies: 0 Date of last pap smear: 11/22/22 (negative) Physical Exam Vital Signs: Last Vital Signs BP 122/70 11/26/23 09:19 BMI result Body Mass Index 29.3 Const General: healthy appearing, comfortable, no acute distress, well developed and alert Nutritional Appearance: average body habitus Orientation/consciousness: patient oriented x3 Limitations: no limitations HEENT Head: Yes normocephalic Neck Neck: Yes normal visual inspection Chest Chest palpation & inspection: normal inspection of the chest Breast/axilla inspection: normal inspection of the breasts and normal inspection of the axillae Breast/axilla palpation: normal palpation of the breasts and normal palpation of the axillae Resp Effort & Inspection: normal respiratory effort GI Inspection: Yes normal to inspection, No Abdominal wall edema and No distended Palpation (GI): Soft to palpation and nontender General: Yes bladder normal to palpation External Female Exam: normal external appearance and normal appearance of the urethra Speculum Exam - Vagina: normal appearance of the vagina, normal palpation and normal vaginal discharge Speculum Exam - Cervix: normal appearance of the cervix, normal palpation and nontender Bimanual exam- vagina & uterus: normal bimanual exam, normal palpation, uterine size normal, bladder normal to palpation, consistency normal, normal palpation, uterine mobility normal, uterine shape normal, No Cervical tenderness present, non-tender and no cervical motion tenderness Bimanual Exam- Adnexa, other: normal adnexae, no masses, normal and No adnexal tenderness Neuro General: patient oriented x3 Assessment & Plan Assessment & Plan (1) Encounter for screening examination for sexually transmitted disease: Code(s): Z11.3 - Encounter for screening for infections with a predominantly sexual mode of transmission Category: Medical (2) Well woman exam with routine gynecological exam: Code(s): Z01.419 - Encounter for gynecological examination (general) (routine) without abnormal findings Category: Medical (3) Breast cancer screening: Code(s): Z12.39 - Encounter for other screening for malignant neoplasm of breast Category: Medical (4) Emotional stress: Code(s): R45.7 - State of emotional shock and stress, unspecified Category: Medical Plan -----Discussed in this visit the following: healthy balanced diet, regular and consistent exercise, getting recommended health screens, doing the best she can for her particular health concerns, kegel exercises, pap smear screening and followup recommendations, mammography screening and SBE, normal changes in cycles in her life stage--- . Addressed all of the issues in HPI I will order a screening mammogram for her I am ordering testing for STIs per her request I informed her that the whole lot of lab orders in the system from her primary care provider for fasting lab work and then she should get all the labs done together Her exam was completely healthy and normal and benign we will also send urine analysis to see if she might have a UTI but it does not sound like it addressed issues with weight gain in the possible constipation in muscle tone and incomplete voiding but if it continues to be a problem she should follow-up with her primary care provider -sometime also spent listening to patient's concerns about trust and whether not someone killed her dog. Investigated where she might be able to find counseling as she has been placed on waiting list before offered to place a referral to [facility] but discussed that there may be a waiting list there as well suggested investigating offices in this particular building to see if there are any same-day short-term openings also suggested seeing if for concern? is available to her through her place Additionally spent much time discussing patient is concerns about her own fertility step 1 is to get very clear about whether not she wants to conceive 2. Continue and start to keep very very close track of her cycles in terms of her periods and changes in discharge and signs and symptoms of ovulation which I reviewed with her in detail and to time intercourse for those times if she is interested conceiving discussed that fertility does wane with time and if she is interested she needs to consider acting on that soon. If she does not have success and is very much interested in conceiving then she E need to seek care at [facility] infertility services but I did warn that they can be expensive. Orders: Orders Hepatitis C Antibody Today Z11.3 - Encounter for screening for infections with a predominantly sexual mode of transmission Syphilis Screen Today Z11.3 - Encounter for screening for infections with a predominantly sexual mode of transmission HIV Ab/Ag Today Z11.3 - Encounter for screening for infections with a predominantly sexual mode of transmission MM tomosynthesis screening BI Today Z01.419 - Encounter for gynecological examination (general) (routine) without abnormal findings, Z11.3 - Encounter for screening for infections with a predominantly sexual mode of transmission, Z12.31 - Encounter for screening mammogram for malignant neoplasm of breast CT NG by PCR Today N89.8 - Other specified noninflammatory disorders of vagina, Z11.3 - Encounter for screening for infections with a predominantly sexual mode of transmission, Z20.2 - Contact with and (suspected) exposure to infections with a predominantly sexual mode of transmission Bacterial Vaginosis Panel Today N89.8 - Other specified noninflammatory disorders of vagina, Z11.3 - Encounter for screening for infections with a predominantly sexual mode of transmission Urine Culture Today R10.2 - Pelvic and perineal pain, Z11.3 - Encounter for screening for infections with a predominantly sexual mode of transmission Hepatitis B Surface Antigen Today Z11.3 - Encounter for screening for infections with a predominantly sexual mode of transmission Coding Level of Care Code Est Pt Prev Care 18-39y(25674) Diagnoses Encounter for screening examination for sexually transmitted disease Z11.3 Well woman exam with routine gynecological exam Z01.419 Breast cancer screening Z12.39 Emotional stress R45.7
[2023-11-26 09:19] VITALS: BP 122/70; BMI 29.3
== END 2023-11-26 10:08 | disposition home or self-care (01) ==
LOC: HO.HWSM 09:12
PROVIDERS: PCP Nurse Practitioner Family; Visit Provider Advanced Practice Midwife
DX: Z01.419 Encounter for gynecological examination (general) (routine) without abnormal findings (principal); R45.7 State of emotional shock and stress, unspecified
CPT/HCPCS: 99395

== ENCOUNTER 2023-11-26 09:12 | Outpatient (REF) | payer OTHER, SELFPAY ==
[2023-11-27 04:28] LABS: CT PCR NOT DETECTED (Not Detect.); NG PCR NOT DETECTED (Not Detect.)
[2023-11-27 08:45] LABS: Bacterial Vaginosis PCR NEGATIVE (Negative); Candida Group PCR NOT DETECTED (Not Detect); Candida glab krusei PCR NOT DETECTED (Not Detect); Trichomonas vaginalis PCR DETECTED (Not Detect)
== END 2023-11-26 09:13 | disposition home or self-care (01) ==
LOC: HO.LAB 09:12
PROVIDERS: PCP Nurse Practitioner Family; Visit Provider Advanced Practice Midwife
DX: Z01.419 Encounter for gynecological examination (general) (routine) without abnormal findings (principal); N89.8 Other specified noninflammatory disorders of vagina; R10.2 Pelvic and perineal pain; R45.7 State of emotional shock and stress, unspecified; Z20.2 Contact with and (suspected) exposure to infections with a predominantly sexual mode of transmission
CPT/HCPCS: 0352U; 87086; 87491; 87591

== ENCOUNTER 2023-12-10 15:13 | Outpatient (AMB) | payer OTHER, SELFPAY ==
--- NOTE | 2023-12-10 15:27 | AM.OFFWIN_ITS ---
Intake Vital Signs 12/10/23 15:28 Height 5 ft 4 in Weight 167 lb BMI 28.7 BP 128/80 Blood Pressure Location Lt brachial Position Sitting Pulse 65 Pulse Source Pulse Oximeter Temp 98.4 F Temp Source Oral Pulse Oximetry (%) 98 Oxygen Delivery Method Room Air Intake Visit Reasons: EP- STI? found out she is Intake Note: pt c/o ? STI. Recently Patient Tobacco Use Status: Never used Tobacco Allergies morphine [MORPHINE] Allergy (Unknown, Verified 12/10/23 15:27) HIVES Seasonal Allergies Adverse Reaction (Intermediate, Verified 12/10/23 15:27) Itchy Eyes Do you need a note to return to daycare/school/sports/work: No HPI HPI Comments History of Present Illness Details Patient is a 38-year-old female who states she just found out she was over the weekend and she was taking metronidazole to treat a sexually transmitted infection. She states she finished the metronidazole on Sunday but she is wondering if it was okay to take when she was . She states she does have a OBGYN doctor that she reached out to this morning regarding her new . She denies any excessive bleeding, abdominal pain or fevers. She does endorse some cramping, she states it feels like she is getting her period. [facility] Medical History Breast mass, right Family history of colon cancer Back pain Orbital fracture HTN (hypertension) Surgical History History of neck surgery Family History Mother HTN (hypertension) Father HTN (hypertension) Diabetes Leukemia Paternal Grandmother Intestinal cancer Other Alcoholism Social History Housing: Apartment Alcohol intake: never Patient Tobacco Use Status: Never used Tobacco e-Cigarette/Vaping Use: Never Used Substance Use Type: Marijuana Advance Directives Date on File: 07/02/20 service: No Current occupational status: employed and student Current occupation: [employer] Current occupational exposures/hazards: Yes Cognitive needs: No Hearing needs: No Vision needs: No Female Reproductive History Menstrual Age of Menarche: 10 Review of Systems Const All systems reviewed & are unremarkable except as noted in HPI and below Physical Exam Vital Signs: Last Vital Signs Temp 98.4 F 12/10/23 15:28 Pulse 65 12/10/23 15:28 BP 128/80 12/10/23 15:28 Pulse Ox 98 12/10/23 15:28 Oxygen Delivery Method Room Air 12/10/23 15:28 BMI result Body Mass Index 28.7 Const General: cooperative, healthy appearing, comfortable, no acute distress and well developed Orientation/consciousness: patient oriented x3 Limitations: no limitations HEENT Head: Yes normal to inspection Ears: hearing grossly normal bilaterally General nose exam: Normal external nose present Face and sinus: Yes normal facial exam Eyes General: appearance normal, both eyes and all related structures Neck Neck: Yes normal visual inspection and Yes full ROM Resp Effort & Inspection: normal respiratory effort and able to speak in complete sentences Skin General skin exam: no rashes or lesions noted Neuro General: patient oriented x3 Extrem General: Yes normal to inspection Results AMB Urinalysis, Automated UA Leukoctes 15 Nicolette/uL Last Edit by Gamal Aaron CMA on 12/10/23 15:46 UA Nitrite Negative Last Edit by Gamal Aaron CMA on 12/10/23 15:46 UA Urobilinogen 0.2 mg/dL Last Edit by Gamal Aaron CMA on 12/10/23 15:46 UA Protein 30 mg/dL Last Edit by Gamal Aaron CMA on 12/10/23 15:46 UA pH 6.0 Last Edit by Gamal Aaron CMA on 12/10/23 15:46 UA Blood 0 Sachin/uL Last Edit by Gamal Aaron CMA on 12/10/23 15:46 UA Specific [place] 1.025 Last Edit by Gamal Aaron CMA on 12/10/23 15:46 UA Ketone Positive Last Edit by Gamal Aaron CMA on 12/10/23 15:46 UA Bilirubin 1 mg/dL Last Edit by Gamal Aaron CMA on 12/10/23 15:46 UA Glucose mg/dL Last Edit by Gamal Aaron CMA on 12/10/23 15:46 Assessment & Plan Assessment & Plan (1) STI (sexually transmitted infection): Code(s): A64 - Unspecified sexually transmitted disease Plan: Reassured patient that Flagyl does not put her at risk according to UTD. We will repeat her STI testing today to ensure she has cleared Trichomoniasis. Recommended she reach out to her OBGYN again and find out which vitamin she should be on. Gave her red flag warning signs and when to go to the emergency department for her abdominal pain/cramping. Plan see above Coding Level of Care Code New Pt Level 3 (38392) Diagnoses STI (sexually transmitted infection) A64
[2023-12-10 15:28] VITALS: BP 128/80; PULSE 65; TEMP 36.9; O2SAT 98; BMI 28.7
== END 2023-12-10 16:54 | disposition home or self-care (01) ==
PROVIDERS: PCP Nurse Practitioner Family; Visit Provider Physician Assistant
DX: A64 Unspecified sexually transmitted disease (principal)
CPT/HCPCS: 81003; 99213

== ENCOUNTER 2023-12-10 16:02 | Outpatient (REF) | payer OTHER, SELFPAY ==
[2023-12-11 12:37] LABS: CT PCR NOT DETECTED (Not Detect.); NG PCR NOT DETECTED (Not Detect.)
== END 2023-12-10 16:03 | disposition home or self-care (01) ==
LOC: HO.LAB 16:02
PROVIDERS: Visit Provider Physician Assistant
DX: Z13.9 Encounter for screening, unspecified (principal)
CPT/HCPCS: 87491; 87591

== ENCOUNTER 2023-12-19 11:07 | Outpatient (REF) | payer OTHER, SELFPAY ==
[2023-12-19 12:33] LABS: Cholesterol 175 mg/dL (<200); Glucose Fasting 97 mg/dL (60-99); HDL Cholesterol 46 mg/dL (>40); LDL Cholesterol Calculated 117 mg/dL (<100); Triglycerides 60 mg/dL (<150)
[2023-12-19 12:45] LABS: HBsAGNum1 0.24 S/CO (0.00-0.99); HIV AB/AG Nonreactive (Nonreactive); HIV Num 1 0.05 S/CO (0.00-0.99); Hepatitis B Surface Antigen Negative (Negative); ~HepC Num1 0.09 S/CO (0.00-0.79); ~Hepatitis C Antibody Nonreactive (Nonreactive)
[2023-12-19 12:51] LABS: TSH reflex Free T4 1.34 uIU/mL (0.32-4.0); Vitamin D 25-OH Total 33.4 ng/mL (>30)
[2023-12-20 03:55] LABS: Syphilis Screen Nonreactive (Nonreactive)
== END 2023-12-19 11:08 | disposition home or self-care (01) ==
LOC: HO.LAB 11:07
PROVIDERS: Absent Provider Advanced Practice Midwife; PCP Nurse Practitioner Family; Visit Provider Nurse Practitioner Family
DX: Z00.00 Encounter for general adult medical examination without abnormal findings (principal); Z11.3 Encounter for screening for infections with a predominantly sexual mode of transmission; E55.9 Vitamin D deficiency, unspecified
CPT/HCPCS: 36415; 80061; 81003; 82306; 82947; 84443; 86780; 86803; 87340; 87389

== ENCOUNTER 2023-12-21 10:35 | Outpatient (AMB) | payer OTHER, SELFPAY ==
--- NOTE | 2023-12-21 10:40 | MHC.PC.OV ---
Vital Signs 12/21/23 10:50 Height 5 ft 4 in Weight 166 lb 2 oz BMI 28.5 BP 138/74 Blood Pressure Location Rt brachial Position Sitting Respiration 16 Pulse 63 Pulse Source Pulse Oximeter Temp 98.3 F Temp Source Oral Pulse Oximetry (%) 99 Oxygen Delivery Method Room Air Intake Visit Reasons: Annual PE Intake Note: patient here for CPE. Etl Developer Required: No Is last menstrual period known: No Post menopausal: No Patient : Yes Allergies morphine [MORPHINE] Allergy (Unknown, Verified 12/21/23 10:52) HIVES Seasonal Allergies Adverse Reaction (Intermediate, Verified 12/21/23 10:52) Itchy Eyes Medication List - Last Reconciled 12/21/23 by Gilles Mendez CNP amlodipine 10 mg PO DAILY 30 days labetalol 100 mg PO BID 30 days Tobacco use date assessed: 12/21/23 Dental Screening Dental Screen Date: 12/21/23 Did you have a dental visit in the last 12 months?: No Did you have a dental problem in the last 6 months where you did not have access to dental care?: No Was dental information given to patient?: Patient has dentist HPI HPI Comments History of Present Illness Details 38-year-old female presents for complete physical exam She has past medical history significant for hypertension, GERD, vitamin-D deficiency, anxiety, and depression She admits to taking her medications as prescribed without adverse reactions. She takes once daily vitamins She reports controlled anxiety and depressive symptoms. She stopped taking fluoxetine She notes that she generally eats and sleeps well. She has been walking for 2 hours every other day She has not worked since her dog a month ago She found out on 12/08/2023 that she is . She notes that her due date is in July 2023. She is happy that she is and her is progressing well. She is currently followed by [facility] customer orders clerk but has an appointment to establish with [facility] ob/gym for her in January 2024 She offers no complaints and denies acute symptoms at this time Last mammogram was on 01/02/2023: Normal Last Pap smear was on 11/2022: Negative [facility] Medical History (Updated 12/21/23 @ 11:15 by Gilles Mendez CNP) Breast mass, right Family history of colon cancer Back pain Orbital fracture HTN (hypertension) Surgical History History of neck surgery Family History Mother HTN (hypertension) Father HTN (hypertension) Diabetes Leukemia Paternal Grandmother Intestinal cancer Other Alcoholism Social History Housing: Apartment Alcohol intake: never Patient Tobacco Use Status: Never used Tobacco e-Cigarette/Vaping Use: Never Used Second Hand Smoke Exposure: Yes Substance Use Type: Marijuana Advance Directives Date on File: 07/02/20 service: No Current occupational status: employed and student Current occupation: [employer] Current occupational exposures/hazards: Yes Cognitive needs: No Hearing needs: No Vision needs: No Female Reproductive History Menstrual Age of Menarche: 10 Questionnaire PHQ-9 Over the last 2 weeks, how often have you been bothered by any of the following problems? 1. Little interest or pleasure in doing things: several days 2. Feeling down, depressed, or hopeless: more than half the days 3. Trouble falling or staying asleep, or sleeping too much: not at all 4. Feeling tired or having little energy: nearly every day 5. Poor appetite or overeating: several days 6. Feeling bad about yourself - or that you are a failure or have let yourself or your family down: not at all 7. Trouble concentrating on things, such as reading the newspaper or watching television: several days 8. Moving or speaking so slowly that other people could have noticed. Or the opposite - being so fidgety or restless that you have been moving around a lot more than usual: not at all 9. Thoughts that you would be better off or of hurting yourself in some way: not at all Total score: 8 Depression Screening Interpretation: Positive Depression Screening Follow-up: Existing condition and In treatment Depression Screening Done: Yes 50923 - PHQ-9 Billing: Yes Source: Developed by Drs. Jeovany Madsen, Jie Crenshaw, Radhames Renee and colleagues, with an educational lou from [employer] Thrive Questionnaire Date Thrive assessed: 12/21/23 I am a: Patient What is your living situation today?: I have a steady place to live Within the past 12 months, did the food you bought not last and you didn't have the money to get more?: Often true Within the past 12 months, did you worry whether your food would run out before you got money to buy more?: Sometimes True Do you have trouble paying for medicines?: No Do you have trouble getting transportation to medical appointments?: No Do you have trouble paying your heating and electricity bill?: Yes Do you have trouble taking care of your child, family member or friend?: No Do you have trouble with day-to-day activities such as bathing, preparing meals, shopping, managing finances, etc.?: Yes Are you currently unemployed and looking for a job?: No Are you interested in more education?: Yes Please select the resources that you would like help with: Housing/[facility], Food, Utilities, Job search/training and Education Currently or been in a relationship where the following occur: No concerns reported THRIVE Score: 3 AUDIT C Alcohol Use Questionnaire (AUDIT-C) 1. How often do you have a drink containing alcohol?: Never Total Score: 0 Score Reviewed/Action Taken: Yes PORTIA-7 AMB Questionnaire PORTIA-7 Date PORTIA - 7 assessed: 12/21/23 Feeling nervous, anxious, or on edge: 1 = Several days Not being able to stop or control worryin = Several days Worrying too much about different things: 1 = Several days Trouble relaxin = Several days Being so restless that it is hard to sit still: 1 = Several days Becoming easily annoyed or irritable: 1 = Several days Feeling afraid as if something awful might happen: 1 = Several days Total PORTIA-7 score (0-4 normal; 5-9 mild; 10-14 moderate; 15-21 severe): 7 Source: Developed by Drs. Jeovany Madsen, Jie Crenshaw, Radhames Renee and colleagues, with an educational lou from [employer] PORTIA-7 Assessment Billing PORTIA-7 Assessment Tool: PORTIA-7 Assessment 69402 Review of Systems Const Details: Denies chills, Denies fatigue, Denies fever(s), Denies headache(s) and Denies weakness HEENT Denies change in vision, Denies dizziness, Denies headache(s), Denies hearing loss, Denies nasal congestion, Denies sinus pain, Denies sinus pressure and Denies sore throat Card Denies chest pain, Denies lightheadedness, Denies dyspnea and Denies other (palpitations) Resp Denies cough, Denies dyspnea and Denies wheezing GI Denies abdominal pain, Denies melena, Denies hematochezia, Denies change in bowel habits, Denies dyspepsia and Denies nausea Denies hematuria and Denies dysuria Musc Denies abnormal gait, Denies myalgias, Denies arthralgias, Denies numbness and Denies tingling Skin/Breast Denies rash, Denies unusual bruising and Denies wounds Neuro Denies abnormal gait, Denies dizziness, Denies headache(s), Denies memory loss, Denies numbness, Denies Sensory deficit (Neuro), Denies tingling and Denies weakness Psych Denies anxiety, Denies depression and Denies memory loss Endo Denies cold intolerance, Denies fatigue, Denies heat intolerance, Denies polydipsia and Denies polyuria Kwesi/Lymph Denies easy bleeding and Denies easy bruising Aller/Immun Denies wheezing Physical exam (Primary Care) Tobacco/Smoking Status: Tobacco use Status Tobacco use date assessed 04/26/23 12/21/23 10:43 Patient Tobacco Use Status Never used Tobacco 12/21/23 10:43 e-Cigarette/Vaping Use Never Used 12/21/23 10:43 Depression Screening Interpretation: Positive Depression Screening Follow-up: Existing condition and In treatment Thrive Assessment: Date of Thrive Assessment Date Thrive assessed 06/06/22 12/21/23 10:43 Currently or been in a relationship where the following occur: No concerns reported Const Other: General: no acute distress, well developed, alert and awake Nutritional Appearance: well nourished Orientation/consciousness: patient oriented x3 HENMT Head: Yes normocephalic and Yes atraumatic Ears: hearing grossly normal bilaterally and TM's normal bilaterally General nose exam: Normal external nose present and Normal nares present Mouth: Normal oral and palatal mucosa present and moist mucous membranes Teeth and gingiva: dentition normal Throat: Yes oropharynx normal Eyes Pupils: Equal, round and reactive pupils present and Pupil accommodation reflex normal EOM: EOMs intact bilaterally Neck Neck: Yes normal visual inspection, Yes no lymphadenopathy and Yes trachea midline Thyroid: Thyroid normal Carotids: no bruits Lymphatic: no lymphadenopathy noted Chest Chest palpation & inspection: normal inspection of the chest Resp Effort & Inspection: normal respiratory effort Auscultation: clear to auscultation bilaterally Cardio Rate: regular rate Rhythm: regular rhythm Heart sounds: S1 normal heart sound present, S2 normal heart sound present, no gallops, no murmurs and no rubs Bruits: no abdominal aortic bruits and no carotid bruits GI Palpation (GI): No Abdominal aortic bruit present, Soft to palpation, nontender, No hepatosplenomegaly present and No Rebound tenderness present Auscultation: normal bowel sounds General: Yes no CVA tenderness Back/Spine/Pelvis Back: no CVA tenderness Cervical Spine: cervical ROM normal and No Cervical spine tenderness Thoracic/Lumbar Spine: thoraco-lumbar ROM normal, No pain with thoraco-lumbar ROM, No thoracic spinal tenderness and No lumbar spinal tenderness Skin General: warm and dry. Normal skin color. Normal skin turgor Lesions: Round, dark brown, small benign mold to her right upper back Rashes: no rashes Trauma: no lacerations or abrasions Wounds: no wounds Nails: normal Neuro General: patient oriented x3, gait normal and CN's II-XI intact bilaterally Cranial nerves: Yes Equal, round and reactive pupils present Cognition (Neuro): normal cognition Gait exam (Neuro): Normal gait present Motor exam (neuro): 5/5 motor strength present throughout Sensory Exam: No Sensory deficit (Neuro) Deep tendon reflexes (DTR's): Right patellar reflex intensity grade: 2+ and Left patellar reflex intensity grade: 2+ Extrem General: Yes normal to inspection, No edema and No calf tenderness Psych Appearance: grossly normal Affect: normal affect Attitude: cooperative Thought process: Normal thought process present Assessment and Plan Assessment & Plan (1) Physical exam, annual: Code(s): Z00.00 - Encounter for general adult medical examination without abnormal findings Plan: No significant physical restrictions or limitations noted Continue current treatment regimen Healthy diet and routine exercise encouraged Encouraged to schedule an appointment with her dentist for routine dental care Follow-up in 2 months for hypertension, anxiety, and depression or sooner with symptoms or concerns Verbalized understanding and agreed with the treatment plan (2) HTN (hypertension): Code(s): I10 - Essential (primary) hypertension Plan: Blood pressure is 138/78, within goal of less than 140/90 Continue current treatment regimen Low-sodium diet encouraged Follow-up in 2 months Verbalized understanding and agreed with the treatment plan (3) Anxiety and depression: Code(s): F41.9 - Anxiety disorder, unspecified; F32.A - Depression, unspecified Plan: Controlled anxiety and depressive symptoms Continue current treatment regimen Routine exercise encouraged Follow-up in 2 months Verbalized understanding and agreed with the treatment plan (4) : Code(s): Z34.90 - Encounter for supervision of normal , unspecified, unspecified trimester Plan: She is about 4 weeks and progressing well She is currently followed by [facility] special events fundraiser but has not appointment with [facility] ASSISTANT CHIEF TRAIN DISPATCHER in January Encouraged to follow-up with ASSISTANT CHIEF TRAIN DISPATCHER as planned Return with symptoms or concerns Verbalized understanding and agreed with the treatment plan Coding Level of Care Code Est Pt Prev Care 18-39y(51698) Diagnoses Physical exam, annual Z00.00 HTN (hypertension) I10 Anxiety and depression F41.9; F32.A Z34.90 Additional Codes PORTIA-7 Assessment Billing - PORTIA-7 Assessment Tool: PORTIA-7 Assessment 12019 ([id number])
[2023-12-21 10:50] VITALS: BP 138/74; PULSE 63; RESP 16; TEMP 36.8; O2SAT 99; BMI 28.5
== END 2023-12-21 11:17 | disposition home or self-care (01) ==
PROVIDERS: PCP Nurse Practitioner Family; Visit Provider Nurse Practitioner Family
DX: Z00.00 Encounter for general adult medical examination without abnormal findings (principal); I10 Essential (primary) hypertension; F41.9 Anxiety disorder, unspecified; F32.A Depression, unspecified
CPT/HCPCS: 99395

== ENCOUNTER 2024-01-29 10:56 | Outpatient (AMB) | payer OTHER, SELFPAY ==
--- NOTE | 2024-01-29 10:59 | A.OFFVIS_ITS ---
Vital Signs 01/29/24 11:02 Height 5 ft 4 in Weight 166 lb BMI 28.5 BP 136/70 Intake Visit Reasons: KATELYN Vortex Operator Required: No Information Interpreted: clinical only Doctor Of Dental Medicine: Doctor Of Dental Medicine Present Allergies morphine [MORPHINE] Allergy (Unknown, Verified 01/29/24 11:03) HIVES Seasonal Allergies Adverse Reaction (Intermediate, Verified 01/29/24 11:03) Itchy Eyes Medication List - Last Reconciled 01/29/24 by Jennifer Kraft CNM amlodipine 10 mg PO DAILY 30 days docosahexaenoic acid ( DHA) mg PO labetalol 100 mg PO BID 30 days multivitamin with iron (Daily Vitamin with Iron tablet) 1 tab PO DAILY Is last menstrual period known: Yes Last menstrual period: 10/26/23 (neg) Do you need a note to return to daycare/school/sports/work: No HPI HPI KATELYN: Details: Patient is scheduled here as a test cure visit for trichomoniasis. She found out that she was after she had just taken the medicine for the trichomoniasis and so she was nervous about that so she went to [facility] and they told her that the trich was gone there by looking under the microscope at the slide. 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 She says her partner has not gone for treatment yet for the trichomoniasis she keeps telling him but he seems not to listen. She has not had sex with him since she says her mother is her support.. 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 I recommend that she make it her business to get the records and then make sure that they are shared with what ever institution she is seeking care so there is no question at all about all the different surgeries she has had. Meantime since she is getting her care at [facility] she is going to continue with all care there at this time I do recommend she signed for what ever records need to be shared with them from os so that if they need anything they have it I wished her all the best she is on her blood pressure medicine and her vitamins and is getting all of her appropriate care now through [facility]. We will not be seeing her during this . [facility] Medical History (Updated 01/29/24 @ 11:48 by Jennifer Kraft CNM) Breast mass, right Family history of colon cancer Back pain Orbital fracture HTN (hypertension) Surgical History History of neck surgery Family History Mother HTN (hypertension) Father HTN (hypertension) Diabetes Leukemia Paternal Grandmother Intestinal cancer Other Alcoholism Social History Housing: Apartment Alcohol intake: never Patient Tobacco Use Status: Never used Tobacco e-Cigarette/Vaping Use: Never Used Second Hand Smoke Exposure: Yes Substance Use Type: Marijuana Advance Directives Date on File: 07/02/20 service: No Current occupational status: employed and student Current occupation: [employer] Current occupational exposures/hazards: Yes Cognitive needs: No Hearing needs: No Vision needs: No Female Reproductive History Menstrual Age of Menarche: 10 Duration of menses: 3-5 days Date of last menstrual period: 10/26/23 (neg) control method: none Total pregnancies: 1 Date of last pap smear: 11/22/22 (negative) Results Reviewed Results Reviewed: Name: Yesenia Villafana Age/Sex: 38/F : 1985 Unit#: [id number] Attend Dr: AbenaJennifer Gordon MARIO Re11/26/23 Status: DEP REF Location: .LAB Disch: SPEC : [id number] FRANKIE: 11/26/23-UNK STATUS: COMP REQ : [id number] RECD: 11/26/23-[address]: AbenaJennifer Gordon MARIO COMP: 11/27/2345 ENTERED: 11/26/[address]: Gilles Mendez CHECK PROCESSING CLERK ORDERED: BV Panel Test Result Flag Reference TV PCR DETECTED A Not Detect BV PCR NEGATIVE Negative The BV organism targets of the Xpert Xpress MVP test can be commensal in women; Xpert Xpress MVP positive results for bacterial vaginosis should be considered in conjunction with other clinical and patient information to determine the disease status. Organisms that are not detected by the Xpert Xpress MVP test have also been reported to be associated with BV and aerobic vaginitis. The Xpert Xpress MVP test performance has not been evaluated in patients under the age of 14. Molly Grp PCR NOT DETECTED Not Detect Can gla-kru NOT DETECTED Not Detect END OF REPORT Patient show me trichomoniasis results that are negative from 01/21/2024 from [facility] Emergency room visit. Assessment & Plan Assessment & Plan (1) Trichomoniasis: Comment: pt and partner needs rx and teaching, safe sex and test of cure and full testing... pt states neg test of cure at [facility]... Code(s): A59.9 - Trichomoniasis, unspecified Category: Medical (2) STI (sexually transmitted infection): Code(s): A64 - Unspecified sexually transmitted disease Category: Medical (3) : Code(s): Z34.90 - Encounter for supervision of normal , unspecified, unspecified trimester Category: Medical Plan Patient is scheduled here as a test cure visit for trichomoniasis. She found out that she was after she had just taken the medicine for the trichomoniasis and so she was nervous about that so she went to [facility] and they told her that the trich was gone there by looking under the microscope at the slide. 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 She says her partner has not gone for treatment yet for the trichomoniasis she keeps telling him but he seems not to listen. She has not had sex with him since she says her mother is her support.. 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 I recommend that she make when she was at the [facility] emergency room she says they did not believe her because they had no records of the. I recommend that she make it her business to get the records and then make sure that they are shared with what ever institution she is seeking care so there is no question at all about all the different surgeries she has had. Meantime since she is getting her care at [facility] she is going to continue with all care there at this time I do recommend she signed for what ever records need to be shared with them from os so that if they need anything they have it I wished her all the best she is on her blood pressure medicine and her vitamins and is getting all of her appropriate care now through [facility]. We will not be seeing her during this . Coding Level of Care Code Est Pt Level 3 (84703) Diagnoses Trichomoniasis A59.9 STI (sexually transmitted infection) A64 Z34.90
[2024-01-29 11:02] VITALS: BP 136/70; BMI 28.5
== END 2024-01-29 11:43 | disposition home or self-care (01) ==
LOC: HO.HWSM 10:56
PROVIDERS: PCP Nurse Practitioner Family; Visit Provider Advanced Practice Midwife
DX: A59.9 Trichomoniasis, unspecified (principal); A64 Unspecified sexually transmitted disease; Z34.90 Encounter for supervision of normal pregnancy, unspecified, unspecified trimester
CPT/HCPCS: 99213

== ENCOUNTER → 2024-01-29 10:56 | Outpatient (BNVA) | payer OTHER, SELFPAY | PROVIDERS: PCP Nurse Practitioner Family; Visit Provider Advanced Practice Midwife | DX: A59.9 Trichomoniasis, unspecified (principal); A64 Unspecified sexually transmitted disease; Z34.90 Encounter for supervision of normal pregnancy, unspecified, unspecified trimester | CPT/HCPCS: 99212 ==

== ENCOUNTER 2024-02-13 11:34 | Outpatient (AMB) | payer OTHER, SELFPAY ==
--- NOTE | 2024-02-13 11:41 | A.OFFPC_ITS ---
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 Is last menstrual period known: No Post menopausal: No Patient : Yes Allergies morphine [MORPHINE] Allergy (Unknown, Verified 02/13/24 12:11) HIVES Seasonal Allergies Adverse Reaction (Intermediate, Verified 02/13/24 12:11) Itchy Eyes Medication List - Last Reconciled 02/13/24 by Gilles Mendez CNP amlodipine 10 mg PO DAILY 30 days docosahexaenoic acid ( DHA) mg PO labetalol 100 mg PO BID 30 days multivitamin with iron (Daily Vitamin with Iron tablet) 1 tab PO DAILY Tobacco use date assessed: 02/13/24 Dental Screening Dental Screen Date: 02/13/24 Did you have a dental visit in the last 12 months?: Yes Did you have a dental problem in the last 6 months where you did not have access to dental care?: No Was dental information given to patient?: Patient has dentist HPI HPI Comments History of Present Illness Details 39-year-old female presents for hyperten zachariah, anxiety, and depression follow-up She admits to taking her medications as prescribed without adverse reactions. She notes that she stopped taking fluoxetine a few months ago after she had trouble with refill. She is not currently on psychotropic medication and reports stable mood Reports controlled anxiety and depressive symptoms She offers no complaints and denies acute symptoms at this time She is 14 weeks without complication so far. She is follow by [facility] Medical History Breast mass, right Family history of colon cancer Back pain Orbital fracture HTN (hypertension) Surgical History History of neck surgery Family History Mother HTN (hypertension) Father HTN (hypertension) Diabetes Leukemia Paternal Grandmother Intestinal cancer Other Alcoholism Social History Housing: Apartment Alcohol intake: never Patient Tobacco Use Status: Never used Tobacco e-Cigarette/Vaping Use: Never Used Second Hand Smoke Exposure: Yes Substance Use Type: Marijuana Advance Directives Date on File: 07/02/20 service: No Current occupational status: employed 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 1. Little interest or pleasure in doing things: not at all 2. Feeling down, depressed, or hopeless: not at all 3. Trouble falling or staying asleep, or sleeping too much: not at all 4. Feeling tired or having little energy: not at all 5. Poor appetite or overeating: not at all 6. Feeling bad about yourself - or that you are a failure or have let yourself or your family down: not at all 7. Trouble concentrating on things, such as reading the newspaper or watching television: not at all 8. Moving or speaking so slowly that other people could have noticed. Or the opposite - being so fidgety or restless that you have been moving around a lot more than usual: not at all 9. Thoughts that you would be better off or of hurting yourself in some way: not at all Total score: 0 Depression Screening Interpretation: Negative Depression Screening Done: Yes 56803 - PHQ-9 Billing: Yes Source: Developed by Drs. Jeovany Madsen, Jie Crenshaw, Radhames Renee and colleagues, with an educational lou from [employer]. Thrive Questionnaire Date Thrive assessed: 02/13/24 I am a: Patient What is your living situation today?: I have a steady place to live Within the past 12 months, did the food you bought not last and you didn't have the money to get more?: I choose not to answer this question Within the past 12 months, did you worry whether your food would run out before you got money to buy more?: Never true Do you have trouble paying for medicines?: No Do you have trouble getting transportation to medical appointments?: I choose not to answer this question Do you have trouble paying your heating and electricity bill?: Yes Do you have trouble taking care of your child, family member or friend?: No Do you have trouble with day-to-day activities such as bathing, preparing meals, shopping, managing finances, etc.?: No Are you currently unemployed and looking for a job?: No Are you interested in more education?: Yes Please select the resources that you would like help with: None Currently or been in a relationship where the following occur: No concerns reported THRIVE Score: 1 AUDIT C Alcohol Use Questionnaire (AUDIT-C) 1. How often do you have a drink containing alcohol?: Never Total Score: 0 PORTIA-7 AMB Questionnaire PORTIA-7 Date PORTIA - 7 assessed: 02/13/24 Feeling nervous, anxious, or on edge: 0 = Not at all Not being able to stop or control worryin = Not at all Worrying too much about different things: 0 = Not at all Trouble relaxin = Not at all Being so restless that it is hard to sit still: 0 = Not at all Becoming easily annoyed or irritable: 0 = Not at all Feeling afraid as if something awful might happen: 0 = Not at all Total PORTIA-7 score (0-4 normal; 5-9 mild; 10-14 moderate; 15-21 severe): 0 Source: Developed by Drs. Jeovany Madsen, Jie Crenshaw, Radhames Renee and colleagues, with an educational lou from [employer]. PORTIA-7 Assessment Billing PORTIA-7 Assessment Tool: PORTIA-7 Assessment 02154 Review of Systems Const Details: Const Denies chills, Denies fatigue, Denies fever(s), Denies headache(s) and Denies weakness ENT Denies dizziness and Denies headache(s) Card Denies chest pain, Denies lightheadedness, Denies dyspnea and Denies other (Palpitations) Resp Denies cough, Denies dyspnea, Denies wheezing and Denies other ( shortness of breath) GI Denies abdominal pain, Denies melena, Denies hematochezia, Denies change in bowel habits, Denies dyspepsia and Denies nausea Denies hematuria and Denies dysuria Musc Denies abnormal gait, Denies myalgias, Denies arthralgias, Denies numbness and Denies tingling Skin/Breast Denies rash, Denies unusual bruising and Denies wounds Neuro Denies abnormal gait, Denies dizziness, Denies headache(s), Denies memory loss, Denies numbness, Denies Sensory deficit (Neuro), Denies tingling and Denies weakness Psych Denies anxiety, Denies depression, Denies memory loss Endo Denies cold intolerance, Denies fatigue, Denies heat intolerance, Denies polydipsia and Denies polyuria Aller/Immun Denies wheezing Physical exam (Primary Care) Vital Signs: Last Vital Signs Temp 97.9 F 02/13/24 11:48 Pulse 67 02/13/24 11:48 Resp 20 02/13/24 11:48 BP 142/84 H 02/13/24 11:48 Pulse Ox 98 02/13/24 11:48 Oxygen Delivery Method Room Air 02/13/24 11:48 BMI result Body Mass Index 30.2 Tobacco/Smoking Status: Tobacco use Status Tobacco use date assessed 02/13/24 02/13/24 11:47 Patient Tobacco Use Status Never used Tobacco 02/13/24 11:43 e-Cigarette/Vaping Use Never Used 02/13/24 11:43 PHQ-9: PHQ-9 Score PHQ-9: Total score 0 02/13/24 11:47 Depression Screening Interpretation: Negative Thrive Assessment: Date of Thrive Assessment Date Thrive assessed 02/13/24 02/13/24 11:47 Currently or been in a relationship where the following occur: No concerns reported Const Other: General: no acute distress and well developed Nutritional Appearance: well nourished Orientation/consciousness: patient oriented x3 HENMT Head: Yes normocephalic and Yes atraumatic Eyes General: appearance normal, both eyes and all related structures Pupils: Equal, round and reactive pupils present EOM: EOMs intact bilaterally Resp Effort & Inspection: normal respiratory effort Auscultation: clear to auscultation bilaterally Cardio Rate: regular rate Rhythm: regular rhythm Heart sounds: S1 normal heart sound present, S2 normal heart sound present, no gallops, no murmurs and no rubs GI Palpation (GI): No Abdominal aortic bruit present, Soft to palpation, nontender, No hepatosplenomegaly present and No Rebound tenderness present Auscultation: normal bowel sounds General: Yes no CVA tenderness Back/Spine/Pelvis Back: no CVA tenderness Extrem General: Yes normal to inspection, No edema and No calf tenderness Skin General: warm and dry. Normal skin color. Normal skin turgor Neuro General: patient oriented x3, gait normal and no focal neuro deficit Cranial nerves: Yes Equal, round and reactive pupils present Cognition (Neuro): normal cognition Gait exam (Neuro): Normal gait present Sensory Exam: No Sensory deficit (Neuro) Psych Appearance: grossly normal Affect: normal affect Attitude: cooperative Thought process: Normal thought process present Coding Level of Care Code Est Pt Level 3 (23353) Diagnoses HTN (hypertension) I10 Anxiety and depression F41.9; F32.A Additional Codes PORTIA-7 Assessment Billing - PORTIA-7 Assessment Tool: PORTIA-7 Assessment 15742 ([id number]) Assessment & Plan Assessment & Plan (1) HTN (hypertension): Code(s): I10 - Essential (primary) hypertension Category: Medical Plan: Resting blood pressure is 130/86, within goal of less than 140/90 Continue current treatment regimen Low-sodium diet encouraged Follow-up in 3 months or sooner with symptoms or concerns Verbalized understanding and agreed with the treatment plan (2) Anxiety and depression: Code(s): F41.9 - Anxiety disorder, unspecified; F32.A - Depression, unspecified Category: Medical Plan: She notes controlled anxiety and depressive symptoms. She stop taking fluoxetine few months ago and not currently on psychotropic medications PHQ-9 and PORTIA-7 scores are normal Healthy diet and routine exercise encouraged Advised to follow-up in 3 months or sooner with symptoms or concerns. May start an SSRI such sertraline which is safeer for , as needed Verbalized understanding and agreed with the plan
[2024-02-13 11:48] VITALS: BP 142/84; PULSE 67; RESP 20; TEMP 36.6; O2SAT 98; BMI 30.2
[2024-02-13 12:13] VITALS: BP 130/86
== END 2024-02-13 12:25 | disposition home or self-care (01) ==
PROVIDERS: PCP Nurse Practitioner Family; Visit Provider Nurse Practitioner Family
DX: I10 Essential (primary) hypertension (principal); F41.9 Anxiety disorder, unspecified; F32.A Depression, unspecified

== ENCOUNTER → 2024-02-13 11:34 | Outpatient (BNVA) | payer OTHER, SELFPAY | PROVIDERS: PCP Nurse Practitioner Family; Visit Provider Nurse Practitioner Family | DX: O16.2 Unspecified maternal hypertension, second trimester (principal); O99.342 Other mental disorders complicating pregnancy, second trimester; F41.9 Anxiety disorder, unspecified; F32.A Depression, unspecified; O09.512 Supervision of elderly primigravida, second trimester; Z3A.14 14 weeks gestation of pregnancy | CPT/HCPCS: 96127; 99212 ==

== ENCOUNTER → 2024-05-28 09:19 | Outpatient (BNVA) | payer MEDICARE, SELFPAY | PROVIDERS: PCP Nurse Practitioner Family; Visit Provider Nurse Practitioner Family | DX: I10 Essential (primary) hypertension (principal); F41.9 Anxiety disorder, unspecified; F32.A Depression, unspecified | CPT/HCPCS: 96127; 99212 ==

== ENCOUNTER 2024-08-01 10:52 | Outpatient (AMB) | payer MEDICARE, SELFPAY ==
--- NOTE | 2024-08-01 11:02 | A.OFFPC_ITS ---
Vital Signs 08/01/24 11:08 08/01/24 11:29 Height 5 ft 4 in Weight 178 lb 8 oz BMI 30.6 BP 138/90 H Blood Pressure Location Rt brachial Position Sitting Respiration 14 Pulse 73 68 Pulse Source Pulse Oximeter Auscultation Temp 99.6 F Temp Source Temporal Artery Scan Pulse Oximetry (%) 97 Oxygen Delivery Method Room Air Intake Visit Reasons: blood pressure chk Intake Note: Yesenia presents in the office today for a blood pressure check. Bow Maker Custom Required: No Allergies morphine [MORPHINE] Allergy (Unknown, Verified 08/01/24 11:20) HIVES Seasonal Allergies Adverse Reaction (Intermediate, Verified 08/01/24 11:20) Itchy Eyes Medication List - Last Reconciled 08/01/24 by Gilles Mendez CNP amlodipine 10 mg PO DAILY 30 days aspirin 162 mg PO DAILY blood sugar diagnostic (CancerGuide DiagnosticsTouch Verio test strips) As directed blood-glucose meter (CancerGuide DiagnosticsTouch Verio Reflect Meter) As directed labetalol 200 mg PO ONCE lancets (OneTouch Delica Plus Lancet) As directed Tobacco use date assessed: 08/01/24 Dental Screening Dental Screen Date: 08/01/24 Did you have a dental visit in the last 12 months?: Yes Did you have a dental problem in the last 6 months where you did not have access to dental care?: No Was dental information given to patient?: Patient has dentist HPI HPI Comments History of Present Illness Details 39-year-old female presents for hyperten zachariah follow-up. She not She delivered a healthy baby boy almost 2 weeks ago via section. She notes that her blood pressure dropped to as low as 100/50 during and after she delievered her baby. Labetalol was decreased from 200 mg tiwce daily to 200 mg daily. She continues to amlodipine 10 mg daily. She was briefly on Metformin 500 mg twice daily for gestation diabetes. No acute symptoms at this time. [facility] Medical History Breast mass, right Family history of colon cancer Back pain Orbital fracture HTN (hypertension) Surgical History History of neck surgery Family History Mother HTN (hypertension) Father HTN (hypertension) Diabetes Leukemia Paternal Grandmother Intestinal cancer Other Alcoholism Social History (Updated 08/01/24 @ 11:05 by Elle Webster MA) Housing: Apartment Alcohol intake: never Patient Tobacco Use Status: Never used Tobacco e-Cigarette/Vaping Use: Never Used Second Hand Smoke Exposure: Yes Use of substances other than those prescribed or required for medical reasons: No Advance Directives Date on File: 07/02/20 service: No Current occupational status: employed and student Current occupation: [employer] Current occupational exposures/hazards: Yes Cognitive needs: No Hearing needs: No Vision needs: No Female Reproductive History Menstrual Age of Menarche: 10 Questionnaire PHQ-9 Over the last 2 weeks, how often have you been bothered by any of the following problems? 1. Little interest or pleasure in doing things: not at all 2. Feeling down, depressed, or hopeless: not at all 3. Trouble falling or staying asleep, or sleeping too much: not at all 4. Feeling tired or having little energy: more than half the days 5. Poor appetite or overeating: not at all 6. Feeling bad about yourself - or that you are a failure or have let yourself or your family down: not at all 7. Trouble concentrating on things, such as reading the newspaper or watching television: not at all 8. Moving or speaking so slowly that other people could have noticed. Or the opposite - being so fidgety or restless that you have been moving around a lot more than usual: not at all 9. Thoughts that you would be better off or of hurting yourself in some way: not at all Total score: 2 Depression Screening Interpretation: Negative Depression Screening Done: Yes 14295 - PHQ-9 Billing: Patient declined-do not bill Source: Developed by Drs. Jeovany Madsen, Jie Crenshaw, Radhames Renee and colleagues, with an educational lou from [employer]. Thrive Questionnaire Date Thrive assessed: 08/01/24 I am a: Patient What is your living situation today?: I choose not to answer this question Within the past 12 months, did the food you bought not last and you didn't have the money to get more?: Often true Within the past 12 months, did you worry whether your food would run out before you got money to buy more?: Sometimes True Do you have trouble paying for medicines?: No Do you have trouble getting transportation to medical appointments?: No Do you have trouble paying your heating and electricity bill?: Yes Do you have trouble taking care of your child, family member or friend?: No Do you have trouble with day-to-day activities such as bathing, preparing meals, shopping, managing finances, etc.?: Yes Are you currently unemployed and looking for a job?: Yes Are you interested in more education?: Yes Currently or been in a relationship where the following occur: Controlled Financially THRIVE Score: 4 AUDIT C Alcohol Use Questionnaire (AUDIT-C) 1. How often do you have a drink containing alcohol?: Never Total Score: 0 Score Reviewed/Action Taken: No PORTIA-7 AMB Questionnaire PORTIA-7 Date PORTIA - 7 assessed: 08/01/24 Feeling nervous, anxious, or on edge: 0 = Not at all Not being able to stop or control worryin = Not at all Worrying too much about different things: 1 = Several days Trouble relaxin = Not at all Being so restless that it is hard to sit still: 0 = Not at all Becoming easily annoyed or irritable: 0 = Not at all Feeling afraid as if something awful might happen: 0 = Not at all Total PORTIA-7 score (0-4 normal; 5-9 mild; 10-14 moderate; 15-21 severe): 1 Source: Developed by Drs. Jeovany Madsen, Jie Crenshaw, Radhames Renee and colleagues, with an educational lou from [employer]. PORTIA-7 Assessment Billing PORTIA-7 Assessment Tool: PORTIA-7 Assessment 42138 Review of Systems Const Details: Const Denies chills, Denies fatigue, Denies fever(s), Denies headache(s) and Denies weakness ENT Denies dizziness and Denies headache(s) Card Denies chest pain, Denies lightheadedness, Denies dyspnea and Denies other (Palpitations) Resp Denies cough, Denies dyspnea, Denies wheezing and Denies other ( shortness of breath) GI Denies abdominal pain, Denies melena, Denies hematochezia, Denies change in bowel habits, Denies dyspepsia and Denies nausea Denies hematuria and Denies dysuria Musc Denies abnormal gait, Denies myalgias, Denies arthralgias, Denies numbness and Denies tingling Skin/Breast Denies rash, Denies unusual bruising and Denies wounds Neuro Denies abnormal gait, Denies dizziness, Denies headache(s), Denies memory loss, Denies numbness, Denies Sensory deficit (Neuro), Denies tingling and Denies weakness Psych Denies anxiety, Denies depression, Denies memory loss Endo Denies cold intolerance, Denies fatigue, Denies heat intolerance, Denies polydipsia and Denies polyuria Aller/Immun Denies wheezing Physical exam (Primary Care) Vital Signs: Last Vital Signs Temp 99.6 F 08/01/24 11:08 Pulse 73 08/01/24 11:08 Resp 14 08/01/24 11:08 BP 138/82 08/01/24 11:08 Pulse Ox 97 08/01/24 11:08 Oxygen Delivery Method Room Air 08/01/24 11:08 BMI result Body Mass Index 30.6 Tobacco/Smoking Status: Tobacco use Status Tobacco use date assessed 08/01/24 08/01/24 11:14 Patient Tobacco Use Status Never used Tobacco 08/01/24 11:14 e-Cigarette/Vaping Use Never Used 08/01/24 11:14 PHQ-9: PHQ-9 Score PHQ-9: Total score 2 08/01/24 11:14 Depression Screening Interpretation: Negative Thrive Assessment: Date of Thrive Assessment Date Thrive assessed 08/01/24 08/01/24 11:14 Currently or been in a relationship where the following occur: Controlled Giovanna ncially Const Other: General: no acute distress and well developed Nutritional Appearance: well nourished Orientation/consciousness: patient oriented x3 HENMT Head: Yes normocephalic and Yes atraumatic Eyes General: appearance normal, both eyes and all related structures Pupils: Equal, round and reactive pupils present EOM: EOMs intact bilaterally Resp Effort & Inspection: normal respiratory effort Auscultation: clear to auscultation bilaterally Cardio Rate: regular rate Rhythm: regular rhythm Heart sounds: S1 normal heart sound present, S2 normal heart sound present, no gallops, no murmurs and no rubs GI Palpation (GI): No Abdominal aortic bruit present, Soft to palpation, nontender, No hepatosplenomegaly present and No Rebound tenderness present Auscultation: normal bowel sounds General: Yes no CVA tenderness Back/Spine/Pelvis Back: no CVA tenderness Cervical Spine: cervical ROM normal and No Cervical spine tenderness Thoracic/Lumbar Spine: thoraco-lumbar ROM normal, No pain with thoraco-lumbar ROM, No thoracic spinal tenderness and No lumbar spinal tenderness Extrem General: Yes normal to inspection, No edema and No calf tenderness Skin General: warm and dry. Normal skin color. Normal skin turgor Neuro General: patient oriented x3, gait normal and no focal neuro deficit Cranial nerves: Yes Equal, round and reactive pupils present Cognition (Neuro): normal cognition Gait exam (Neuro): Normal gait present Sensory Exam: No Sensory deficit (Neuro) Psych Appearance: grossly normal Affect: normal affect Attitude: cooperative Thought process: Normal thought process present Coding Level of Care Code Est Pt Level 3 (39467) Diagnoses HTN (hypertension) I10 Additional Codes PORTIA-7 Assessment Billing - PORTIA-7 Assessment Tool: PORTIA-7 Assessment 95499 ([id number]) Assessment & Plan Assessment & Plan (1) HTN (hypertension): Code(s): I10 - Essential (primary) hypertension Category: Medical Plan: Resting blood pressure is 130/90, slightly above goal of less than 140/90. Heart rate is 68. Will increase labetalol to 200 mg twice daily; advised to take as prescribed. Continue to take amlodipine 10 mg daily. Low-sodium diet encouraged. Monitor blood pressure at least 3 times weekly and report blood pressure below 100/60 and heart rate below 60. Also advised to report dizziness or lightheadedness. Return with symptoms or concerns. Verbalized understanding and agreed with treatment plan. Medications: Changed From labetalol 200 mg PO ONCE To labetalol 200 mg PO Q12H 30 days 60 tabs 3RF
[2024-08-01 11:08] VITALS: BP 138/90; PULSE 73; RESP 14; TEMP 37.6; O2SAT 97; BMI 30.6
[2024-08-01 11:29] VITALS: PULSE 68
--- OUTSIDE RECORDS SUMMARY | 2024-08-01 11:49 | XMS_ITS ---
Author Name [facility] Organization Unknown Results Test Name/Text Value Interpretation Date Range Source Trichomonas vaginalis TMA Normal [id number] - [facility] C trach rRNA XXX Ql CARRILLO+probe Normal [id number] - [facility] N gonorrhoea rRNA XXX Donr Ql PCR Normal [id number] - [facility] URINE pH, POC 6.5 Normal [id number] 5 - [address] URINE Nitrite, POC Normal [id number] - [facility] URINE Leuk Esterase, POC Normal [id number] - [facility] URINE Clarity, POC Normal [id number] [facility] URINE Spec [place], POC 1.025 Normal [id number] 1.003 - 1.03 [facility] Urobilinogen, URINE POC 0.2mg/dL Normal [id number] 0.2 - 1 [facility] URINE Bilirubin, POC Normal [id number] - [facility] URINE Blood, POC Normal [id number] - [facility] URINE Protein, POC Abnormal [id number] - [facility] URINE Glucose, POC Normal [id number] - [facility] URINE Color, POC Normal [id number] [facility] URINE Ketones, POC Abnormal [id number] - [facility] URINE pH, POC 6.5 Normal [id number] 5 - [address] URINE Nitrite, POC Normal [id number] - [facility] URINE Leuk Esterase, POC Normal [id number] - [facility] URINE Clarity, POC Normal [id number] [facility] URINE Spec [place], POC 1.025 Normal [id number] 1.003 - 1.03 [facility] Urobilinogen, URINE POC 0.2mg/dL Normal [id number] 0.2 - 1 [facility] URINE Bilirubin, POC Normal [id number] - [facility] URINE Blood, POC Normal [id number] - [facility] URINE Protein, POC Abnormal [id number] - [facility] URINE Glucose, POC Normal [id number] - [facility] URINE Color, POC Normal [id number] CCT URINE Ketones, POC Abnormal [id number] - CCT VZV IgG Ser EIA-aCnc 2AI Normal [id number] 1 - [facility] RUBV IgG SerPl EIA-aCnc 1.7AI Normal [id number] 0.9 - [facility] HBV surface Ab Ser Ql Normal [id number] - [facility] core Ab Ser Ql Normal [id number] - [facility] T. pallidum IgG+IgM Ser QI IA Normal [id number] - [facility] Hepatitis C Ab Interpretation Normal [id number] - [facility] HCV Ab s/co SerPl EIA 0.09S/COratio Normal [id number] 0 - 0.79 [facility] HBV surface Ag Ser Ql Normal [id number] - [facility] HIV 1+2 Ab+HIV1 p24 Ag Ser EIA-aCnc Normal [id number] - [facility] Creat Ur-mCnc 229mg/dL Normal [id number] [facility] CT Prot Ur-mCnc 12mg/dL Normal [id number] [facility] T Prot/Creat Ur 0.1 Normal [id number] [facility] CT AST SerPl-cCnc 16U/L Normal [id number] 10 - 50 HH CCT ALT SerPl-cCnc 12U/L Normal [id number] 10 - 50 HH CCT Creat SerPl-mCnc 0.8mg/dL Normal [id number] 0.4 - 1.1 [facility] Globulin Ser Calc-mCnc 2.9g/dL Normal [id number] 1.5 - 3.9 [facility] CO2 SerPl-sCnc 25mmol/L Normal [id number] 22 - 33 HH CCT Albumin/Glob SerPl 1.6Ratio Normal [id number] 1 - 3 [facility] Anion Gap Bld-sCnc 11 Normal [id number] 7 - 17 [facility] Potassium SerPl-sCnc 4.1mmol/L Normal [id number] 3.4 - 5.3 [facility] Bilirub SerPl-mCnc 0.2mg/dL Normal [id number] 0.2 - 1 [facility] Calcium SerPl-mCnc 9.5mg/dL Normal [id number] 8.7 - 10 .5 [facility] BUN SerPl-mCnc 10mg/dL Normal [id number] 8 - 21 HH CCT ALP SerPl-cCnc 82U/L Normal 32 - 122 HH CCT GFR/BSA.pred SerPlBld FXQ-HPS-LnEJpf 90 Normal [id number] 59 - [facility] Chloride SerPl-sCnc 99mmol/L Normal [id number] 98 - 10 7 [facility] BUN/Creat SerPl 13Ratio Normal [id number] 10 - 25 H [facility] Albumin SerPl-mCnc 4.5g/dL Normal [id number] 3.5 - 5 [facility] Prot SerPl-mCnc 7.4g/dL Normal [id number] 6.3 - 8.3 H [facility] Glucose SerPl-mCnc 100mg/dL Above high normal [id number] 65 - 99 [facility] Sodium SerPl-sCnc 135mmol/L Below low normal [id number] 13 6 - 145 [facility] Neutrophils num Bld Auto 4.45Thou/uL Normal [id number] 2 - 7.5 [facility] Monocytes num Bld Auto 0.52Thou/uL Normal [id number] 0. 2 - 1.5 [facility] Eosinophil num Bld Auto 0.03Thou/uL Normal [id number] 0 - 0.7 [facility] WBC num Bld Auto 6.9Thou/uL Normal [id number] 4 - 11 [facility] MCHC RBC Auto-mCnc 33.3g/dL Normal [id number] 30 - 36 [facility] Monocytes/leuk NFr Bld Auto 7.5% Normal [id number] [facility] Hct VFr Bld Auto 40% Normal [id number] 35 - 47 [facility] RBC num Bld Auto 4.64Mil/uL Normal [id number] 4 - 5.4 [facility] RDW RBC Auto-Rto 13.8% Normal [id number] 11.5 - 14. 5 [facility] PMV Bld Auto 11fL Normal [id number] 7.5 - 12.[address] Eosinophil/leuk NFr Bld Auto 0.4% Normal [id number] [facility] MCH RBC Qn Auto 28.7pg Normal [id number] 26 - 34 H [facility] Basophils/leuk NFr Bld Auto 0.6% Normal [id number] [facility] Basophils num Bld Auto 0.04Thou/uL Normal [id number] 0 - 0.2 [facility] Platelet num Bld Auto 248Thou/uL Normal [id number] 150 - 450 [facility] Neutrophils/leuk NFr Bld Auto 64.6% Normal [id number] [facility] MCV RBC Auto 86fL Normal [id number] 80 - 100 [facility] T Lymphocytes/leuk NFr Bld Auto 26.6% Normal [id number] [facility] Lymphocytes num Bld Auto 1.83Thou/uL Normal [id number] 1.5 - 4.5 [facility] Imm Granulocytes/leuk NFr Bld Auto 0.3% Normal [id number] [facility] Hgb Bld-mCnc 13.3g/dL Normal [id number] 11.7 - 15.7 HH CCT Imm Granulocytes num Bld Auto 0.02Thou/uL Normal [id number] 0 - 0.1 [facility] URINE pH, POC 7 Normal [id number] 5 - [address] URINE Nitrite, POC Normal [id number] - [facility] URINE Leuk Esterase, POC Normal [id number] - [facility] URINE Clarity, POC Normal [id number] [facility] URINE Spec [place], POC 1.02 Normal [id number] 1.003 - 1.03 [facility] Urobilinogen, URINE POC 0.2mg/dL Normal [id number] 0.2 - 1 [facility] URINE Bilirubin, POC Normal [id number] - CCT URINE Blood, POC Normal [id number] - [facility] URINE Protein, POC Normal [id number] - [facility] URINE Glucose, POC Normal [id number] - [facility] URINE Color, POC Normal [id number] [facility] URINE Ketones, POC Normal [id number] - [facility] URINE pH, POC 7 Normal [id number] 5 - [address] URINE Nitrite, POC Normal [id number] - [facility] URINE Leuk Esterase, POC Normal [id number] - [facility] URINE Clarity, POC Normal [id number] [facility] URINE Spec [place], POC 1.025 Normal [id number] 1.003 - 1.03 [facility] Urobilinogen, URINE POC 0.2mg/dL Normal [id number] 0.2 - 1 [facility] URINE Bilirubin, POC Normal [id number] - CCT URINE Blood, POC Normal [id number] - CCT URINE Protein, POC Normal [id number] - CCT URINE Glucose, POC Normal [id number] - CCT URINE Color, POC Normal [id number] [facility] URINE Ketones, POC Normal [id number] - CCT History of Medication Use Medication Directions Dispensed Refills Start Date End Date Stat Doxylamine-Pyridoxine ER 20-20 MG Tab CR Take 1 tablet by mouth nightly. May add 1 tab in the am on day 3 if needed. 12/31/2023 active aspirin enteric coated (ECOTRIN LOW STRENGTH) 81 MG EC tablet Take 2 tablets (162 mg total) by mouth daily. Take 2 daily . Start @ 12 wks for prevention of preclampsia. Start 02/03/24 12/31/2023 active hydrocortisone (ANUSOL-HC) 25 MG suppository Insert 1 suppository (25 mg total) into the rectum 2 (two) times a day. active escitalopram (LEXAPRO) 10 MG tablet Take 1 tablet (10 mg total) by mouth daily. 02/03/2021 active azelastine (OPTIVAR) 0.05 % ophthalmic solution 1 drop 2 (two) times a day. active Blood Pressure Monitoring (Blood Pressure Monitor Automat) Device 1 automatic BP cuff with monitor with appropriate size cuff. Check BP once daily. Length of use 9 month. ICD 10 code 016.9 01/04/2024 active albuterol (PROVENTIL HFA; VENTOLIN HFA) 108 (90 Base) MCG/ACT inhaler Inhale 2 puffs 4 times daily (every 6 hours) as needed for wheezing. active hydrocortisone (ANUSOL-HC) 25 MG suppository Insert 1 suppository into the rectum 2 (two) times a day. active Vit-Fe Fumarate-FA (PNV Plus Multivitamin) 27-1 MG Tab Take 1 tablet by mouth daily. 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 ProblemAct [facility] Anxiety and depression active 2024-01-21 ProblemAct [facility] Advanced maternal age, primigravida active 2024-01-21 ProblemAct [facility] , obstetrical care active 2023-12-31 ProblemAct [facility] Nausea and vomiting in active 2024-01-21 ProblemAct [facility] 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-[address] Encounters Encounter Type Encounter Reason Primary Diagnosis Location Date Ambulatory Encounter for supervision of normal , unspecified, first trimester Encounter for supervision of normal , unspecified, first trimester [facility] 01/21/2024 Ambulatory Encounter for screening, unspecified Encounter for screening, unspecified [facility] 12/31/2023 Ambulatory Encounter for other specified screening Encounter for other specified screening [facility] 12/31/2023 Ambulatory Unspecified intracranial injury with loss of consciousness of unspecified duration, subsequent encounter [facility] 03/14/2021 Observation Nontraumatic intracerebral hemorrhage, unspecified [facility] 02/19/2021 Care Team Organization Name Specialty Phone Email Start Date End Da te [facility] PCP [employer] 12/31/2023 07/09/2024 [facility] PCP,No Primary Care 03/14/2021 07/09/2024 [facility] NO PCP Primary Care 02/19/2021 03/14/2021
--- OUTSIDE RECORDS SUMMARY | 2024-08-01 11:49 | XMS_ITS | Clinical Summary ---
Author Organization [facility] Address [address] [place] [id number] Care Team Providers Care Stock Speculator Name Role Phone Pcp, No Primary Care Provider Unavailabl e Allergies Active Allergy Reactions Criticality Noted Date Comments Morphine Unknown/Patient and Family Unable to Define Medium 02/19/2021 Medications Medication Sig Dispensed Refills Start Date End Date Status amLODIPine (NORVASC) 10 MG tablet Take 1 tablet (10 mg total) by mouth daily. 02/03/2021 Active escitalopram (LEXAPRO) 10 MG tablet Take 1 tablet (10 mg total) by mouth daily. 02/03/2021 Active azelastine (OPTIVAR) 0.05 % ophthalmic solution 1 drop 2 (two) times a day. Active hydrocortisone (ANUSOL-HC) 25 MG suppository Insert 1 suppository (25 mg total) into the rectum 2 (two) times a day. Active polyethylene glycol (miraLAx) 17 GM/SCOOP powder Take 17 g by mouth daily. Active albuterol (PROVENTIL HFA; VENTOLIN HFA) 108 (90 Base) MCG/ACT inhaler Inhale 2 puffs 4 times daily (every 6 hours) as needed for wheezing. Active loratadine (CLARITIN) 10 MG tablet Take 1 tablet (10 mg total) by mouth daily. Active losartan (COZAAR) 25 MG tablet Take 1 tablet (25 mg total) by mouth daily. Active diclofenac (VOLTAREN) 0.1 % ophthalmic solution 1 drop 4 (four) times a day. Active cyclobenzaprine (FLEXERIL) 5 MG tablet Take 1 tablet (5 mg total) by mouth 3 times daily (every 8 hours) as needed for muscle spasms. Active Doxylamine-Pyridoxine ER 20-20 MG Tab CRIndications:Nausea and vomiting in Take 1 tablet by mouth nightly. May add 1 tab in the am on day 3 if needed. 60 tablet 1 12/31/2023 Active aspirin enteric coated (ECOTRIN LOW STRENGTH) 81 MG EC tabletIndications:Fir st trimester ,Hypertensio n, unspecified type Take 2 tablets (162 mg total) by mouth daily. Take 2 daily . Start @ 12 wks for prevention of preclampsia. Start 02/03/24 60 tablet 5 12/31/2023 Active Vit-Fe Fumarate-FA (PNV Plus Multivitamin) 27-1 MG TabIndications:First trimester Take 1 tablet by mouth daily. 30 tablet 11 12/31/2023 Active Blood Pressure Monitoring (Blood Pressure Monitor Automat) DeviceIndications:Fir st trimester ,Hypertensio n, unspecified type 1 automatic BP cuff with monitor with appropriate size cuff. Check BP once daily. Length of use 9 month. ICD 10 code 016.9 1 each 01/04/2024 Active labetalol (NORMODYNE) 200 MG tabletIndications:Hyp ertension, unspecified type Take 1 tablet (200 mg total) by mouth 2 (two) times a day. 60 tablet 3 01/21/2024 Active ondansetron (ZOFRAN-ODT) 4 MG disintegrating tabletIndications:Pre care in first trimester Take 1 tablet (4 mg total) by mouth 3 times daily (every 8 hours) as needed for nausea or vomiting. Place tablet on tongue to dissolve. 20 tablet 01/21/2024 Active Active Problems Problem Noted Date Diagnosed Date Nausea and vomiting in 01/21/2024 Assessment & Plan (01/21/2024 5:25 PM EDT): Patient with nausea with minimal improvement with home remedies. - Encouraged over the counter Vitamin B6 (25 mg BID) and Unisom 25 mg at night. Patient informed Unisom may make her sleepy. - Will send order for Zofran PRN Hypertension 01/21/2024 Overview (01/21/2024): 01/21/24: Patient with chronic HTN on Labetalol 100 mg BID and Amlodipine 10 mg daily. PEP wnl and P:C <0.1 on 12/31/23. Blood pressure not well controlled today, otherwise asymptomatic. - EKG - 24 hour urine ordered, nursing education to be provided today - Will increase Labetalol from 100 to 200 mg BID - Continue on Amlodipine 10 mg daily - Aspirin 162 mg daily to start at 12 weeks gestation > patient aware order previously sent to pharmacy Assessment & Plan (01/21/2024 5:24 PM EDT): Patient with chronic HTN on Labetalol 100 mg BID and Amlodipine 10 mg daily. PEP wnl and P:C <0.1 on 12/31/23. Blood pressure not well controlled today, otherwise asymptomatic. - EKG - 24 hour urine ordered for patient to bring at next visit or before next MFM visit on 02/07. 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 to be provided today. - Will increase Labetalol from 100 to 200 mg BID - Continue on Amlodipine 10 mg daily - Aspirin 162 mg daily to start at 12 weeks gestation > patient aware order previously sent to pharmacy - Encouraged patient to take blood pressure at home on a daily basis and to call the office if she has readings of 140/90 or greater. Anxiety and depression 01/21/2024 Assessment & Plan (01/21/2024 5:19 PM EDT): Patient reports mood is stable and has a good support system. Not currently on any medications and not seeing a mental health provider. Declining additional resources at this time. Will continue to monitor. 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 MFM referral previously sent for Level 2 anatomy. Advanced maternal age, primigravida 01/21/2024 Assessment & Plan (01/21/2024 5:17 PM EDT): -MFM referral made for level 2 anatomy scan Cervical cancer screening 01/21/2024 Overview (01/21/2024): 11/2022: NILM, HPV negative per patient Assessment & Plan (01/21/2024 5:20 PM EDT): 11/2022: NILM, HPV negative per patient High-risk supervision 12/31/2023 , obstetrical care 12/31/2023 Overview (01/21/2024): First Trimester: [x] routine labs [x] SMA/CF/Fragile X screen > ordered 01/21/24 [x] evidence of Varicella immunity - immune [ ] gc/chlamydia > ordered 01/21/24 [ ] pap, if indicated > patient with NILM, HPV negative on 11/2022 [x] first trimester screen or cell free DNA > ordered 01/21/24 [x] Pre-eclampsia risk assessment / HTN on Labetalol and Amlodipine, AMA, AA - accepting Aspirin at 12 wks GA; initial labs wnl, P:C <0.1 [x] Reviewed weight gain in [x] Covid information sheet given [x] Accepts blood products? yes [ ] If no, PATC referral ordered [ ] Lead screening completed, if positive draw lead level [x] BP cuff ordered Second Trimester: [ ] sequential screen/quad screen/msAFP [ ] anatomy ultrasound Third Trimester: [ ] 1 hour GTT [ ] repeat Hgb/Hct, HIV, RPR [ ] RSV vaccine (32-36 wks) [ ] Wishes reviewed [ ] GBS culture done Immunizations: [ ] flu vaccine [ ] Tdap [ ] Covid Vaccine Plans: [ ] contraception plans [ ] feeding plan Delivery Plan: [ ] Mode of delivery [ ] Timing of delivery [ ] Delivery scheduled [ ] H&P completed [ ] Induction/ teaching with engraving operator & Plan (01/21/2024 5:03 PM EDT): - Up to date with labs - cfDNA and carrier screening ordered - GC/CT and Trichomonas vaginal swab done today - 162 mg Aspirin daily to start at 12 weeks gestation for pre-eclampsia prevention - Reviewed weight gain in Traumatic cerebral parenchymal hemorrhage 2020 Assessment & Plan (01/21/2024 5:04 PM EDT): Patient reports memory issues since hemorrhagic contusion but denies any other neuro deficits. Has followed with neurosurgery in the past. Estimated Date of Delivery Comme nts Yes 08/17/2024 Based on Ultraso und Encounters Date Type Department Care Team Description 07/10/2024 [facility] [address] [place] [address], [place] [address] Robyn Mathew, First trimester ; Hypertension, unspecified type 06/27/2024 [facility] [address] [place] [address], [place] [address] Tavia Whitt MD Hypertension, unspecified type from Last 3 Months Family History Medical History Relation Name Comments Hypertension Father Hypertension Mother Relation Name Status Comments Father Mother Social History Tobacco Use Types Packs/Day Years Used Date Smoking Tobacco: Never Smokeless Tobacco: Never Alcohol Use Standard Drinks/Week Comments Never 0 (1 standard drink = 0.6 oz pur e alcohol) PHQ-2 Answer Date Recorded PHQ-2 Total Score 2 12/31/2023 Hunger Vital Sign Answer Date Recorded Within the past 12 months, y ou worried that your food would run out before you got the money to buy more. Never true 12/31/19 24 Within the past 12 months, t he food you bought just didn't last and you didn't have money to get more. Never true 12/31/2023 Estimated Date of Delivery Comme nts Yes 08/17/2024 Based on Ultraso und Sex and Gender Information Value Date Recorded Sex Assigned at Female 12/13/2023 9:27 AM EDT Gender Identity Female 12/13/2023 9:27 AM EDT Sexual Orientation Heterosexual (straight) 12/12 9:27 AM EDT Last Filed Vital Signs Vital Sign Reading Time Taken Comments Blood Pressure 143/77 01/21/2024 9:00 AM EDT Pulse 70 01/21/2024 9:00 AM EDT Temperature 36.5 ??C (97.7 ??F) 01/21/2024 9:00 AM ED T Respiratory Rate 22 01/21/2024 9:00 AM EDT Oxygen Saturation 100% 01/21/2024 9:00 AM EDT Inhaled Oxygen Concentration - - Weight 79 kg (174 lb 1.6 oz) 01/21/2024 9:00 AM EDT Height 162.6 cm (5' 4 ) 01/21/2024 9:00 AM EDT Body Mass Index 29.88 01/21/2024 9:00 AM EDT Plan of Treatment Upcoming Encounters Date Type Department Care Team (Late st Contact Info) Description 08/17/2024 Hospital Encounter HH Labor and Delivery [address] [place] [address] Dominique Olivier MD [address] [place], [place] [id number] Health Maintenance Due Date Last Done Comments DTaP/Tdap/Td Vaccines (1 - Tdap) 01/04/2003 Hepatitis B Vaccines (1 of 3 - 19+ 3-dose series) 01/04/2003 Pap Smear (Ages 21-65) 01/04/2005 Influenza Vaccine 11/22/2023 COVID-19 Vaccine ( - 2023-2 5 season) 2023 Mammogram 2024 HIV Screening Completed 12/31/2023 Hepatitis C Virus Screening Completed 12/31/2023 HPV Vaccines Aged Out No longer eligi ble based on patient's age to complete this topic Pneumococcal Vaccine: Pediat alejandro (0-5 Years) and At-Risk Patients (6 to 49 Years) Aged Out No longer eligible b ased on patient's age to complete this topic RSV Vaccine 60 years and old er and Patients (No Doses Required) Completed Goals Goal Patient Goal Type Associated Problems Recent Progress Patient-Stated? Author Reminders Care Plan OB Reminders No Tegan Balbuena, infection prevention coordinator Procedure Name Priority Date/Time Associated Diagnosis Comments HIV 1/2 AG/AB CMIA REFLEX TO CONFIRMATION Routine 12/31/2023 11:23 AM EDT First trimester HEPATITIS C ANTIBODY REFLEX HCV RT-PCR, QUANT Routine 12/31/2023 11:23 AM EDT First trimester from Last 3 Months or Most Recently Relevant to Health Maintenance Results * HEPATITIS C ANTIBODY REFLEX HCV RT-PCR, QUANT (12/31/2023 11:23 AM EDT) Hepatitis C Antibody 0.09 0.00 - 0.79 S/CO ratio 01/01/2024 10:44 AM EDT [facility] Hepatitis C Antibody Interpretation Nonreactive Nonreactive 01/01/2024 10:44 AM EDT [facility] Comment:Antibodies to HCV no t detected. This does not exclude the possibility of exposure to HCV. Blood (Plasma/Serum) 12/31/2023 11:23 AM EDT 12/31/2023 4:34 PM EDT Robyn Bhatteufemiavahid JONES LAB BLOOD ORDERABLE S Performing Organization Address [facility] Co de Phone Number [facility] [address] [employer] [address] * HIV 1/2 Ag/Ab CMIA Reflex to Confirmation (12/31/2023 11:23 AM EDT) Pathologist [facility] HIV 1/2 Ag/Ab CMIA Nonreactive Nonreactive 01/01/2024 10:44 AM EDT [facility] Comment: Results show no evidence of infection by HIV 1/2. If clinically indicated, repeat CMIA or test by nucleic acid amplification. HIV 1/2 Antigen/Antibody CMIA reflex to confirmation AND HIV-1 RNA viral load recommended in patients who are taking or have recently taken PrEP. Blood Serum specimen / Unknown 12/31/2023 11:23 AM EDT 12/31/2023 4:34 PM EDT Robyn Mathew DO LAB BLOOD ORDERABLE S Performing Organization Address [facility] Co de Phone Number [facility] [address] [employer] [address] from Last 3 Months or Most Recently Relevant to Health Maintenance Additional Health Concerns Active Problems Noted Date Diagnosed Date OB Reminders 12/31/2023 Advance Directives * Full Code (Latest Code Status on File) Date Activated Date Inactivated Comments 02/20/2021 1:19 AM Care Teams Stock Speculator Relationship Specialty Start Date End Date Pcp, No PCP - General General Medicine 02/21/21
--- OUTSIDE RECORDS SUMMARY | 2024-08-01 11:49 | XMS_ITS | Encounter Summary ---
Author Organization [employer] Address [address] [facility] [address] [place] [address] Care Team Providers Care Drafter Seismograph Name Role Phone Linda Faustin MD Primary Care Provider [phone] Encounter Details Date Type Department Care Team (Late st Contact Info) Description 05/24/2022 Telephone [facility] [address] [place], [place] [phone] Linda Faustin MD [address] [place] [address] Social History Tobacco Use Types Packs/Day Years Used Date Smoking Tobacco: Never Assessed Comments Unknown Sex and Gender Information Value Date Recorded Sex Assigned at Female 02/20/2022 10:17 AM EDT Legal Sex Female 10:17 AM EDT Gender Identity Female 02/20/2022 10:17 AM EDT Sexual Orientation Straight 02/20/2022 10 :17 AM EDT documented as of this encounter Plan of Treatment Not on file documented as of this encounter Visit Diagnoses Not on filedocumented in this encounter Care Teams Drafter Seismograph Relationship Specialty Start Date End Date Linda Faustin MD [address] [place] [phone] PCP - General Family Medicine 04/30/13 10/25/23 documented as of this encounter
--- OUTSIDE RECORDS SUMMARY | 2024-08-01 11:49 | XMS_ITS | Clinical Summary ---
Author Organization [employer] Address [address] [facility] 7[address] [place] [address] Care Team Providers Care Forestry Supervisor Name Role Phone Unavailable Primary Care Provider Unavailabl e Social History Tobacco Use Types Packs/Day Years Used Date Smoking Tobacco: Never Assessed Comments Unknown Sex and Gender Information Value Date Recorded Sex Assigned at Female 02/20/2022 10:17 AM EDT Legal Sex Female 10:17 AM EDT Gender Identity Female 02/20/2022 10:17 AM EDT Sexual Orientation Straight 02/20/2022 10 :17 AM EDT Last Filed Vital Signs Vital Sign Reading Time Taken Comments Blood Pressure 112/80 12/20/2021 12:08 AM EDT Pulse 60 12/20/2021 12:08 AM EDT Temperature - - Respiratory Rate - - Oxygen Saturation - - Inhaled Oxygen Concentration - - Weight 75.6 kg (166 lb 9.6 oz) 12/20/2021 12:08 AM EDT Height 163.8 cm (5' 4.5 ) 12/20/2021 12:08 AM ED T Body Mass Index 28.15 12/20/2021 12:08 AM EDT Plan of Treatment Health Maintenance Due Date Last Done Comments Depression Screening 1984 Alcohol/Substance Use Screening 1996 Tobacco Screening 1996 Family Planning (PISQ) 01/04/1999 Hepatitis B Vaccines (1 of 3 - 19+ 3-dose series) 01/04/2003 Pap Smear 06/15/2023 06/15/2020 COVID-19 Vaccine (2 - season) 2023 10/15/2020 Influenza Vaccine (#1) 2023 Mammogram 2024 Cervical Cancer Screening 06/15/2025 HPV/Cotest 06/15/2025 06/15/2020, 12/05/2016 DTaP/Tdap/Td Vaccines (9 - Td or Tdap) 03/18/2029 03/18/2019, 12/30/2011, 11/18/2008, Additional history exists Zoster Vaccines (1 of 2) 01/04/2034 RSV Patients and Patients Aged 60 years or older (1 - 1-dose 75+ series) 01/04/2059 IPV Vaccines Completed 09/21/1988, 04/1985, 1984, Additional history exists HIB Vaccines Aged Out 09/20/1995 No longer eligi ble based on patient's age to complete this topic HPV Vaccines Completed 06/22/2009, 12/23, 11/20/2008 Hepatitis A Vaccines Aged Out No long er eligible based on patient's age to complete this topic Meningococcal Vaccine Aged Out No coleen cole eligible based on patient's age to complete this topic Pneumococcal Vaccine: Pediatrics (0 to 5 Years) and At-Risk Patients (6 to 49) Years) Aged Out No longer eligible based on patient's age to complete this topic RSV under 20 months Aged Out No longe r eligible based on patient's age to complete this topic Rotavirus Vaccines Aged Out No longer eligible based on patient's age to complete this topic Procedures Procedure Name Priority Date/Time Associated Diagnosis Comments HPV MRNA E6/E7 Routine 06/15/2020 1:53 PM EST THINPREP PAP Routine 06/15/2020 1:53 PM EST from Last 3 Months or Most Recently Relevant to Health Maintenance Results * THINPREP PAP (06/15/2020 1:53 PM EST) Clinical Information: None given [facility] COMMENT SEE COMMENT [facility] Comment: EXPLANATORY NOTE: ? The Pap is a screening test for cervical cancer. It is ?? not a diagnostic test and is subject to false negative ?? and false positive results. It is most reliable when a ?? satisfactory sample, regularly obtained, is submitted ?? with relevant clinical findings and history, and when ?? the Pap result is evaluated along with historic and ?? current clinical information. ?? 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 [facility] LMP: NONE [facility] Prev. BX: NONE [facility] Prev. PAP: NONE [facility]IV[facility] SOURCE: None given [facility] Statement Of Adequacy: SEE COMMENT [facility] Comment: Satisfactory for evaluation. Endocervical/transformation zone component present. 06/15/2020 1:53 PM EST Shanthi OAKES LAB PATHOLOGY ORDERABLES Final Result Performing Organization Address [facility] Co de Phone Number [facility] [address] * HPV mRNA E6/E7 (06/15/2020 1:53 PM EST) HPV nRNA E6/E7 Not Detected Not Detected [facility] Comment: Methodology: Coding Specialist-Mediated Amplification This assay detects E6/E7 viral messenger RNA (mRNA) from 14 high-risk HPV types (16,18,31,33,35,39,45,51,52,56,58,59,66,68). ? The analytical performance characteristics of this assay have been determined by [employer]. The modifications have not been cleared or approved by the FDA. This assay has been validated pursuant to the CLIA regulations and is used for clinical purposes. ?? For additional information, please refer to http://education.[email or web address] Tower [email or web address]/[email or web address] (This link if provided for information/ educational purposes only.) 06/15/2020 1:53 PM EST [facility] LAB BLOOD ORDERABLES Giovanna l Result Performing Organization Address [facility] Co de Phone Number [facility] [address] from Last 3 Months or Most Recently Relevant to Health Maintenance
== END 2024-08-01 11:36 | disposition home or self-care (01) ==
LOC: HO.HMCFM 10:53
PROVIDERS: PCP Nurse Practitioner Family; Visit Provider Nurse Practitioner Family
DX: I10 Essential (primary) hypertension (principal)

== ENCOUNTER → 2024-08-01 10:52 | Outpatient (BNVA) | payer MEDICARE, SELFPAY | PROVIDERS: PCP Nurse Practitioner Family; Visit Provider Nurse Practitioner Family | DX: I10 Essential (primary) hypertension (principal); Z86.32 Personal history of gestational diabetes; Z79.899 Other long term (current) drug therapy | CPT/HCPCS: 96127; 99212 ==

== ENCOUNTER 2024-08-26 09:58 | Outpatient (AMB) | payer MEDICARE, MEDICAID, SELFPAY ==
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
[2024-08-26 10:06] VITALS: BP 124/68; PULSE 64; RESP 16; TEMP 36.7; O2SAT 98; BMI 30.4
--- OUTSIDE RECORDS SUMMARY | 2024-08-26 11:22 | XMS_ITS | Encounter Summary ---
Author Organization [employer] Address [address] [facility] 7t [place] [address] Care Team Providers Care Green Ware Caster Name Role Phone Linda Faustin MD Primary Care Provider [phone] Encounter Details Date Type Department Care Team (Late st Contact Info) Description 05/24/2022 Telephone [facility] [address] [place], [place] [phone] Linda Faustin MD [address] [place] [address] Social History Tobacco Use Types Packs/Day Years [...] on filedocumented in this encounter Care Teams Green Ware Caster Relationship Specialty Start Date End Date Linda Faustin MD [address] [place] [id number] PCP - General Family Medicine 04/30/13 10/25/23 documented as of this encounter
--- OUTSIDE RECORDS SUMMARY | 2024-08-26 11:23 | XMS_ITS | Encounter Summary ---
Author Organization [facility] Address [address] [place] [address] Care Team Providers Care Medical Geneticist Name Role Phone Pcp, No Primary Care Provider Unavailabl e Encounter Details Date Type Department Care Team (Late st Contact Info) Description 08/17/2024 Hospital Encounter HH Labor and Delivery [address] [place] [phone] Dominique Olivier MD [address] [place] [address] Social History Tobacco Use Types Packs/Day Years [...] Assigned at Female 12/13/2023 9:27 AM EDT Legal Sex Female 7:07 PM EST Gender Identity Female 12/13/2023 9:27 AM EDT Sexual Orientation Heterosexual (straight) 12/12 9:27 AM EDT documented as of this encounter Plan of Treatment Not on file documented as of this encounter Goals Goal Patient Goal Type Associated Problems Recent Progress Patient-Stated? Author Reminders Care Plan OB Reminders No Tegan Balbuena RN documented as of this encounter Visit Diagnoses Not on filedocumented in this encounter Additional Health Concerns Active Problems Noted Date Diagnosed Date OB Reminders 12/31/2023 documented as of this encounter Care Teams Medical Geneticist Relationship Specialty Start Date End Date Pcp, No PCP - General General Medicine 02/21/21 documented as of this encounter
--- OUTSIDE RECORDS SUMMARY | 2024-08-26 11:23 | XMS_ITS | Clinical Summary ---
Author Organization [employer] Address [address] [facility] 7t [place] [address] Care Team Providers Care Cellulose Insulation Helper Name Role Phone Unavailable Primary Care Provider [...] Smear 06/15/2023 06/15/2020 COVID-19 Vaccine (2 - 2023- season) 2023 10/15/2020 Influenza Vaccine (#1) 2023 [...] 1:53 PM EST) Clinical Information: None given [facility] COMMENT SEE COMMENT [facility] [...] historic and ?? current clinical information. ?? 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 [facility] LMP: NONE [facility]IVEN [facility] Prev. BX: NONE [facility]IVEN [facility] Prev. PAP: NONE [facility]IVEN [facility] SOURCE: None given [facility] Statement Of Adequacy: SEE COMMENT [facility] Comment: Satisfactory for evaluation. Endocervical/transformation zone component present. 06/15/2020 1:53 PM EST Shanthi OAKES LAB PATHOLOGY ORDERABLES Final Result Performing Organization Address [facility] de Phone Number [facility] [address] * HPV mRNA E6/E7 (06/15/2020 1:53 PM EST) HPV nRNA E6/E7 Not Detected Not Detected [facility] Comment: Methodology: Driver Messenger-Mediated Amplification This assay detects E6/E7 viral messenger RNA (mRNA) from 14 high-risk HPV types (16,18,31,33,35,39,45,51,52,56,58,59,66,68). ? The analytical performance characteristics of this assay have been determined by [employer]. The modifications have not been cleared or approved by the FDA. This assay has been validated pursuant to the CLIA regulations and is used for clinical purposes. ?? For additional information, please refer to http://education.PaletteApp.[email or web address]/CVL723q1 (This link if provided for information/ educational purposes only.) 06/15/2020 1:53 PM EST [facility] LAB BLOOD ORDERABLES Giovanna l Result Performing Organization Address [facility] Co de Phone Number [facility] [address] from Last 3 Months or Most Recently Relevant to Health Maintenance
--- OUTSIDE RECORDS SUMMARY | 2024-08-26 11:23 | XMS_ITS | Clinical Summary ---
Author Organization Formerly [facility] Address [address] [place] [address] Care Team Providers Care Correspondence Review Clerk Name Role Phone Pcp, No Primary Care Provider Unavailabl e Allergies Active Allergy Reactions Criticality Noted Date Comments Morphine Unknown/Patient and Family Unable to Define Medium 02/19/2021 Medications amLODIPine (NORVASC) 10 MG tablet Take 1 tablet (10 mg total) by mouth daily. 02/04/20 21 Active escitalopram (LEXAPRO) 10 MG tablet Take 1 tablet (10 mg total) by mouth daily. 02/04/20 21 Active azelastine (OPTIVAR) 0.05 % ophthalmic solution [...] hours) as needed for muscle spasms. Active Doxylamine-Pyridox ine ER 20-20 MG Tab CRIndications:Naus ea and vomiting in Take 1 tablet by mouth nightly. May add 1 tab in the am on day 3 if needed. 60 tablet 1 12/31/19 24 Active aspirin enteric coated (ECOTRIN LOW STRENGTH) 81 MG EC tabletIndications: First trimester ,Hyperten zachariah, unspecified type Take 2 tablets (162 mg total) by mouth daily. Take 2 daily . Start @ 12 wks for prevention of preclampsia. Start 02/03/24 60 tablet 5 12/31/19 24 Active Vit-Fe Fumarate-FA (PNV Plus Multivitamin) 27-1 MG TabIndications:Fir st trimester Take 1 tablet by mouth daily. 30 tablet 11 12/31/19 24 Active Blood Pressure Monitoring (Blood Pressure Monitor Automat) DeviceIndications: First trimester ,Hyperten zachariah, unspecified type 1 automatic BP cuff with monitor with appropriate size cuff. Check BP once daily. Length of use 9 month. ICD 10 code 016.9 1 each 01/04/20 24 Active labetalol (NORMODYNE) 200 MG tabletIndications: Hypertension, unspecified type Take 1 tablet (200 mg total) by mouth 2 (two) times a day. 60 tablet 3 01/21/20 24 Active ondansetron (ZOFRAN-ODT) 4 MG disintegrating tabletIndications: care in first trimester Take 1 tablet (4 mg total) by mouth 3 times daily (every 8 hours) as needed for nausea or vomiting. Place tablet on tongue to dissolve. 20 tablet 01/21/20 24 Active Active Problems Problem Noted Date Diagnosed [...] bring at next visit or before next [facility] visit on 02/07. 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 & Plan (01/21/2024 5:03 PM EDT): - [...] Encounters Date Type Department Care Team Description 08/17/2024 Hospital Encounter HH Labor and Delivery [address] [place] [id number] Dominique Olivier MD 07/10/2024 [facility] [address] [place] [id number] Robyn Mathew DO First trimester ; Hypertension, unspecified type 06/27/2024 [facility] [address] [place] [phone] Tavia Whitt MD Hypertension, unspecified type from [...] 01/21/2024 9:00 AM EDT Plan of Treatment Health Maintenance Due Date Last Done Comments DTaP/Tdap/Td Vaccines (1 - Tdap) 01/04/2003 Hepatitis B Vaccines (1 of 3 - 19+ 3-dose series) 01/04/2003 Pap Smear (Ages 21-65) 01/04/2005 Influenza Vaccine 11/22/2023 COVID-19 Vaccine (1 - 2023-2 5 season) 2023 Mammogram 2024 [...] Plan OB Reminders No Tegan Balbuena RN Procedures Procedure Name Priority Date/Time Associated Diagnosis [...] 0.79 S/CO ratio 01/01/2024 10:44 AM EDT [facility] Hepatitis C Antibody Interpretation Nonreactive Nonreactive 01/01/2024 10:44 AM EDT [facility] Comment:Antibodies to HCV no t detected. This does not exclude the possibility of exposure to HCV. Blood (Plasma/Serum) 12/31/2023 11:23 AM EDT 12/31/2023 4:34 PM EDT Robyn Mahsa Mathew DO LAB BLOOD ORDERABLES Final Result Performing Organization Address [facility] Co de Phone Number [facility] [address] [employer] [address] * HIV 1/2 Ag/Ab CMIA Reflex to Confirmation (12/31/2023 11:23 AM EDT) HIV 1/2 Ag/Ab CMIA Nonreactive Nonreactive 01/01/2024 10:44 AM EDT [facility] Comment: Results show no [...] PM EDT Robyn Mathew DO LAB BLOOD ORDERABLES Final Result Performing Organization Address [facility]/ZIP Co de Phone Number [facility] [address] [email or web address] [address] from Last 3 Months or Most Recently Relevant to Health Maintenance Additional Health Concerns Active Problems Noted Date Diagnosed Date OB Reminders 12/31/2023 Advance Directives * Full Code (Latest Code Status on File) Date Activated Date Inactivated Comments 02/20/2021 1:19 AM Care Teams Correspondence Review Clerk Relationship Specialty Start Date End Date Pcp, No PCP - General General Medicine 02/21/21
== END 2024-08-26 10:22 | disposition home or self-care (01) ==
LOC: HO.HMCFM 09:59
PROVIDERS: PCP Nurse Practitioner Family; Visit Provider Nurse Practitioner Family
DX: I10 Essential (primary) hypertension (principal); F41.9 Anxiety disorder, unspecified; F32.A Depression, unspecified

== ENCOUNTER → 2024-08-26 09:58 | Outpatient (BNVA) | payer MEDICARE, SELFPAY | PROVIDERS: PCP Nurse Practitioner Family; Visit Provider Nurse Practitioner Family | DX: I10 Essential (primary) hypertension (principal); F41.9 Anxiety disorder, unspecified; F32.A Depression, unspecified | CPT/HCPCS: 96127; 99212 ==

== ENCOUNTER 2024-12-01 10:37 | Outpatient (AMB) | payer MEDICARE, MEDICAID, SELFPAY ==
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
[2024-12-01 10:48] VITALS: BP 158/100; PULSE 61; RESP 16; TEMP 36.2; O2SAT 97; BMI 30.2
--- OUTSIDE RECORDS SUMMARY | 2024-12-01 11:20 | XMS_ITS | Clinical Summary ---
Author Organization [facility] Address [address] [place] [id number] Care Team Providers Care Blanchard Grinder Operator Name Role Phone Pcp, No Primary Care [...] 02/03/24 60 tablet 5 12/31/19 24 Active Blood Pressure Monitoring (Blood [...] to dissolve. 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 Encounters Date Type Department Care Team Description 11/24/2024 [facility] [address] [place] [address] Robyn Mathew, First trimester ; Hypertension, unspecified type 09/30/2024 [facility] [address] [place] [address] Robyn Mathew, First trimester from Last 3 Months Family History Medical [...] money to get more. Never true 12/31/2023 Comments No Sex and Gender Information Value Date Recorded Sex Assigned at Female 12/13/2023 9:27 AM EDT Legal Sex Female 7:07 PM EST Gender Identity Female 12/13/2023 9:27 AM EDT Sexual Orientation Heterosexual (straight) 12/12 9:27 AM EDT Last Filed Vital Signs Vital Sign Reading Time Taken Comments Blood Pressure 143/77 01/21/2024 9:00 AM EDT Pulse 70 01/21/2024 9:00 AM EDT Temperature 36.5 C (97.7 F) 01/21/2024 9:00 AM EDT Respiratory Rate 22 01/21/2024 9:00 AM EDT [...] series) 01/04/2003 Pap Smear (Ages 21-65) 01/04/2005 HPV Vaccines (1 - 3-dose SCD M series) 01/04/2011 COVID-19 Vaccine ( - 2023-2 5 season) 2023 Mammogram 2024 Influenza Vaccine 11/21/2024 HIV Screening Completed 12/31/2023 Hepatitis C Virus Screening Completed 12/31/2023 Pneumococcal Vaccine: Pediat alejandro (0-5 Years) and At-Risk Patients (6 to 49 Years) Aged Out No longer eligible b ased on patient's age to complete this topic Goals Goal Patient Goal Type Associated Problems Recent Progress Patient-Stated? 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 This does not exclude the possibility of exposure to HCV. Blood (Plasma/Serum) 12/31/2023 11:23 AM EDT 12/31/2023 4:34 PM EDT [facility]LOOD [facility]LES Final Result Performing Organization Address [facility] Co de Phone Number [facility] [address] * HIV 1/2 Ag/Ab CMIA Reflex to Confirmation (12/31/2023 11:23 AM EDT) HIV 1/2 Ag/Ab CMIA Nonreactive Nonreactive 01/01/2024 10:44 AM EDT [facility] Comment: Results show no evidence of infection by HIV 1/2. If clinically indicated, repeat CMIA or test by nucleic acid amplification. HIV 1/2 Antigen/Antibody CMIA reflex to confirmation AND HIV-1 RNA viral load recommended in patients who are taking or have recently taken PrEP. Blood Serum specimen / Unknown 12/31/2023 11:23 AM EDT 12/31/2023 4:34 PM EDT [facility] BLOOD ORDERABLES Final Result Performing Organization Address City/[facility] Co de Phone Number [facility] [address] from Last 3 Months or Most Recently Relevant to Health Maintenance Additional Health Concerns Active Problems Noted Date Diagnosed Date OB Reminders 12/31/2023 Advance Directives * Full Code (Latest Code Status on File) Date Activated Date Inactivated Comments 02/20/2021 1:19 AM Care Teams Blanchard Grinder Operator Relationship Specialty Start Date End Date Pcp, No PCP - General General Medicine 02/21/21
--- OUTSIDE RECORDS SUMMARY | 2024-12-01 11:20 | XMS_ITS ---
Author Name [facility] Organization Unknown Results Test Name/Text Value Interpretation Date Range Source Urobilinogen, URINE POC 0.2 mg/dL Normal 01/21/2024 0.2 - 1 [facility] URINE Glucose, POC Negative Normal 01/21/2024 - [facility] URINE Clarity, POC Clear Normal 01/21/2024 [facility] URINE Color, POC Yellow Normal 01/21/2024 [facility] URINE Ketones, POC Trace Abnormal 01/21/2024 - [facility] URINE Nitrite, POC Negative Normal 01/21/2024 - [facility] URINE pH, POC 6.5 Normal 01/21/2024 5 - 8 [facility] URINE Protein, POC Trace Abnormal 01/21/2024 - [facility] URINE Spec Tea, POC 1.025 Normal 01/21/2024 1.003 - 1.03 [facility] URINE Bilirubin, POC Negative Normal 01/21/2024 - [facility] URINE Leuk Esterase, POC Negative Normal 01/21/2024 - [facility] URINE Blood, POC Negative Normal 01/21/2024 - [facility] N gonorrhoea rRNA XXX Donr Ql PCR Negative Normal 01/22/2024 - [facility] C trach rRNA XXX Ql CARRILLO+probe Negative Normal 01/22/2024 - [facility] Trichomonas vaginalis TMA Negative Normal 01/24/2024 - [facility] URINE Spec Tea, POC 1.025 Normal 01/21/2024 1.003 - 1.03 [facility] URINE Color, POC Yellow Normal 01/21/2024 [facility] URINE Bilirubin, POC Negative Normal 01/21/2024 - [facility] URINE Leuk Esterase, POC Negative Normal 01/21/2024 - [facility] URINE Clarity, POC Clear Normal 01/21/2024 [facility] URINE Blood, POC Negative Normal 01/21/2024 - [facility] URINE Protein, POC Trace Abnormal 01/21/2024 - [facility] Urobilinogen, URINE POC 0.2 mg/dL Normal 01/21/2024 0.2 - 1 [facility] URINE Glucose, POC Negative Normal 01/21/2024 - [facility] URINE Nitrite, POC Negative Normal 01/21/2024 - [facility] URINE Ketones, POC Trace Abnormal 01/21/2024 - [facility] URINE pH, POC 6.5 Normal 01/21/2024 5 - 8 [facility] GFR/BSA.pred SerPlBld SAZ-KZY-PaHSkv >90.0 Normal 12/31/2023 59 - [facility] Albumin SerPl-mCnc 4.5 g/dL Normal 12/31/2023 3.5 - 5 [facility] Bilirub SerPl-mCnc 0.2 mg/dL Normal 12/31/2023 0.2 - 1 [facility] Albumin/Glob SerPl 1.6 Ratio Normal 12/31/2023 1 - 3 [facility] Creat SerPl-mCnc 0.8 mg/dL Normal 12/31/2023 0.4 - 1.1 [facility] ALT SerPl-cCnc 12.0 U/L Normal 12/31/2023 10 - 50 [facility] T Potassium SerPl-sCnc 4.1 mmol/L Normal 12/31/2023 3.4 - 5 .3 [facility] Sodium SerPl-sCnc 135.0 mmol/L Below low normal 12/31/2023 1 36 - 145 [facility] BUN/Creat SerPl 13.0 Ratio Normal 12/31/2023 10 - 25 [facility] Chloride SerPl-sCnc 99.0 mmol/L Normal 12/31/2023 98 - 10 7 [facility] CO2 SerPl-sCnc 25.0 mmol/L Normal 12/31/2023 22 - 33 [facility] Globulin Ser Calc-mCnc 2.9 g/dL Normal 12/31/2023 1.5 - 3.9 [facility] Calcium SerPl-mCnc 9.5 mg/dL Normal 12/31/2023 8.7 - 10.5 [facility] ALP SerPl-cCnc 82.0 U/L Normal 12/31/2023 32 - 122 [facility] T Anion Gap Bld-sCnc 11.0 Normal 12/31/2023 7 - 17 [facility] Glucose SerPl-mCnc 100.0 mg/dL Above high normal 12/31/2023 65 - 99 [facility] AST SerPl-cCnc 16.0 U/L Normal 12/31/2023 10 - 50 [facility] T Prot SerPl-mCnc 7.4 g/dL Normal 12/31/2023 6.3 - 8.[address] [facility] [address] BUN SerPl-mCnc 10.0 mg/dL Normal 12/31/2023 8 - [address] [facility] [address] URINE Bilirubin, POC Negative Normal 12/31/2023 - [facility] Urobilinogen, URINE POC 0.2 mg/dL Normal 12/31/2023 0.2 - 1 [facility] URINE Spec Tea, POC 1.02 Normal 12/31/2023 1.003 - 1.03 [facility] URINE Clarity, POC Clear Normal 12/31/2023 [facility] URINE Protein, POC Negative Normal 12/31/2023 - [facility] URINE Nitrite, POC Negative Normal 12/31/2023 - [facility] URINE pH, POC 7.0 Normal 12/31/2023 5 - 8 [facility] URINE Color, POC Yellow Normal 12/31/2023 [facility] URINE Glucose, POC Negative Normal 12/31/2023 - [facility] URINE Blood, POC Negative Normal 12/31/2023 - [facility] URINE Ketones, POC Negative Normal 12/31/2023 - [facility] URINE Leuk Esterase, POC Negative Normal 12/31/2023 - [facility] Prot/Creat Ur <0.1 Normal 01/01/2024 [facility] Creat Ur-mCnc 229.0 mg/dL Normal 01/01/[address] [facility] [address] Prot Ur-mCnc 12.0 mg/dL Normal 01/01/2024 [facility] VZV IgG Ser EIA-aCnc 2.0 AI Normal 01/04/2024 1 - [facility] RUBV IgG SerPl EIA-aCnc 1.7 AI Normal 01/04/2024 0.9 - [facility] HBV core Ab Ser Ql Nonreactive Normal 01/01/2024 - [facility] HBV surface Ab Ser Ql Reactive (Immune) Normal 01/01/2024 - [facility] T. pallidum IgG+IgM Ser QI IA Nonreactive Normal 01/01/2024 - [facility] HBV surface Ag Ser Ql Nonreactive Normal 01/01/2024 - [facility] HIV 1+2 Ab+HIV1 p24 Ag Ser EIA-aCnc Nonreactive Normal 01/01/2024 - [facility] Hepatitis C Ab Interpretation Nonreactive Normal 01/01/2024 - [facility] HCV Ab s/co SerPl EIA 0.09 S/CO ratio Normal 01/01/2024 0 - 0.79 [facility] Eosinophil num Bld Auto 0.03 Thou/uL Normal 12/31/2023 0 - 0.7 [facility] MCH RBC Qn Auto 28.7 pg Normal 12/31/2023 26 - [address] MCHC RBC Auto-mCnc 33.3 g/dL Normal 12/31/2023 30 - 36 [facility] RDW RBC Auto-Rto 13.8 % Normal 12/31/2023 11.5 - 14.5 [facility] Eosinophil/leuk NFr Bld Auto 0.4 % Normal 12/31/2023 [facility] WBC num Bld Auto 6.9 Thou/uL Normal 12/31/2023 4 - 11 [facility] RBC num Bld Auto 4.64 Mil/uL Normal 12/31/2023 4 - 5.4 [facility] MCV RBC Auto 86.0 fL Normal 12/31/2023 80 - 100 [facility] Hct VFr Bld Auto 40.0 % Normal 12/31/2023 35 - 47 [facility] Platelet num Bld Auto 248.0 Thou/uL Normal 12/31/2023 150 - 450 [facility] Neutrophils/leuk NFr Bld Auto 64.6 % Normal 12/31/2023 [facility] Lymphocytes num Bld Auto 1.83 Thou/uL Normal 12/31/2023 1.5 - 4.5 [facility] Hgb Bld-mCnc 13.3 g/dL Normal 12/31/2023 11.7 - 15.7 [facility] T Monocytes/leuk NFr Bld Auto 7.5 % Normal 12/31/2023 [facility] Monocytes num Bld Auto 0.52 Thou/uL Normal 12/31/2023 0.2 - 1.5 [facility] PMV Bld Auto 11.0 fL Normal 12/31/2023 7.5 - 12.5 [facility] Basophils num Bld Auto 0.04 Thou/uL Normal 12/31/2023 0 - 0.2 [facility] Neutrophils num Bld Auto 4.45 Thou/uL Normal 12/31/2023 2 - 7.5 [facility] Basophils/leuk NFr Bld Auto 0.6 % Normal 12/31/2023 [facility] Imm Granulocytes num Bld Auto 0.02 Thou/uL Normal 12/31/2023 0 - 0.1 [facility] Lymphocytes/leuk NFr Bld Auto 26.6 % Normal 12/31/2023 [facility] Imm Granulocytes/leuk NFr Bld Auto 0.3 % Normal 12/31/2023 [facility] URINE Ketones, POC Negative Normal 12/31/2023 - [facility] Urobilinogen, URINE POC 0.2 mg/dL Normal 12/31/2023 0.2 - 1 [facility] URINE Glucose, POC Negative Normal 12/31/2023 - [facility] URINE Leuk Esterase, POC Negative Normal 12/31/2023 - [facility] URINE Bilirubin, POC Negative Normal 12/31/2023 - [facility] URINE Nitrite, POC Negative Normal 12/31/2023 - [facility] URINE Blood, POC Negative Normal 12/31/2023 - [facility] URINE Spec Tea, POC 1.025 Normal 12/31/2023 1.003 - 1.03 [facility] URINE Protein, POC Negative Normal 12/31/2023 - [facility] URINE Color, POC Yellow Normal 12/31/2023 [facility] URINE Clarity, POC Clear Normal 12/31/2023 [facility] URINE pH, POC 7.0 Normal 12/31/2023 5 - 8 [facility] History of Medication Use Medication Directions Dispensed Refills Start Date End Date Stat Blood Pressure Monitoring (Blood Pressure Monitor Automat) Device 1 automatic BP cuff with monitor with appropriate size cuff. Check BP once daily. Length of use 9 month. ICD 10 code 016.9 01/04/2024 active aspirin enteric coated (ECOTRIN LOW STRENGTH) 81 MG EC tablet Take 2 tablets (162 mg total) by mouth daily. Take 2 daily . Start @ 12 wks for prevention of preclampsia. Start 02/03/24 12/31/2023 active Doxylamine-Pyridoxine ER 20-20 MG Tab CR Take 1 tablet by mouth nightly. May add 1 tab in the am on day 3 if needed. 12/31/2023 active Vit-Fe Fumarate-FA (PNV Plus Multivitamin) 27-1 MG Tab Take 1 tablet by mouth daily. 12/31/2023 active escitalopram (LEXAPRO) 10 MG tablet Take 1 tablet (10 mg total) by mouth daily. 02/03/2021 active albuterol (PROVENTIL HFA; VENTOLIN HFA) 108 (90 Base) MCG/ACT inhaler Inhale 2 puffs 4 times daily (every 6 hours) as needed for wheezing. active azelastine (OPTIVAR) 0.05 % ophthalmic solution 1 drop 2 (two) times a day. active hydrocortisone (ANUSOL-HC) 25 MG suppository Insert 1 suppository into the rectum 2 (two) times a day. active hydrocortisone (ANUSOL-HC) 25 MG suppository Insert 1 suppository (25 mg total) into the rectum 2 (two) times a day. 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 [facility] High-risk supervision active 2023-12-31 ProblemAct [facility] Advanced maternal age, primigravida active 2024-01-21 [facility]Act [facility] , obstetrical care active 2023-12-31 ProblemAct [facility] Anxiety and depression active 2024-01-21 ProblemAct [facility] Cervical cancer screening active 2024-01-21 ProblemAct [facility] Nausea and vomiting in active 2024-01-21 ProblemAct [facility] First trimester active EncounterDiagnosisAct [facility] 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-[address] Hypertension active 2024-01-21 ProblemAct [facility] Encounters Encounter Type Encounter Reason Primary Diagnosis Location Date Ambulatory Encounter for supervision of normal , unspecified, first trimester Encounter for supervision of normal , unspecified, first trimester [facility] 01/21/2024 Ambulatory Encounter for screening, unspecified Encounter for screening, unspecified [facility] 12/31/2023 Ambulatory Encounter for other specified screening Encounter for other specified screening [facility] 12/31/2023 Ambulatory Unspecified intracranial injury with loss of consciousness of unspecified duration, subsequent encounter [facility] 03/14/2021 Observation Nontraumatic intracerebral hemorrhage, unspecified [facility] 02/19/2021 Care Team Organization Name Specialty Phone Email Start Date End Da regla [facility] 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
--- OUTSIDE RECORDS SUMMARY | 2024-12-01 11:20 | XMS_ITS | Encounter Summary ---
Author Organization [facility] Address [address] [place] [address] Care Team Providers Care Caterer Helper Name Role Phone Linda Faustin MD Primary Care Provider [phone] Encounter Details Date Type Department Care Team ([facility] st Contact Info) Description 05/24/2022 Telephone C [facility] [address] [place], [place] [id number] Linda Faustin MD [address] [place] [address] Social History Tobacco Use Types Packs/Day Years [...] on filedocumented in this encounter Care Teams Caterer Helper Relationship Specialty Start Date End Date Linda Faustin MD [address] [place] [id number] PCP - General Family Medicine 04/30/13 10/25/23 documented as of this encounter
== END 2024-12-01 11:09 | disposition home or self-care (01) ==
LOC: HO.HMCFM 10:38
PROVIDERS: PCP Nurse Practitioner Family; Visit Provider Nurse Practitioner Family
DX: I10 Essential (primary) hypertension (principal); F41.9 Anxiety disorder, unspecified; F32.A Depression, unspecified; Z00.00 Encounter for general adult medical examination without abnormal findings

== ENCOUNTER → 2024-12-01 10:37 | Outpatient (BNVA) | payer MEDICARE, MEDICAID, SELFPAY | PROVIDERS: PCP Nurse Practitioner Family; Visit Provider Nurse Practitioner Family | DX: I10 Essential (primary) hypertension (principal); F41.9 Anxiety disorder, unspecified; F32.A Depression, unspecified | CPT/HCPCS: 96127; 99212 ==

== ENCOUNTER 2025-02-11 15:07 | Outpatient (AMB) | payer MEDICARE, MEDICAID, SELFPAY ==
--- NOTE | 2025-02-11 15:08 | MHC.OFFVIS ---
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 She would like screening for STIs. She has not been sexually active with her for about 4 months and if she did she would use condoms. She had a baby 6 months ago at [facility] it was an emergency she had preeclampsia and gestational diabetes and he was about 4 lb and she had a because she was on Pitocin and every time she had a contraction his heartbeat went down. She had trichomoniasis diagnosed near the beginning of the so she is interested in full STIs is screening. She sees a primary care provider and is on labetalol for her blood pressure. If she had had sex she would use condoms. Her last period was towards the end of last month on questioning she thinks she had a lot of clear mucus about 2 days ago, [facility] Medical History (Updated 02/11/25 @ 15:42 by Jennifer Kraft CNM) delivery delivered Breast mass, right Family history of colon cancer Back pain Orbital fracture HTN (hypertension) Surgical History History of neck surgery Family History Mother HTN (hypertension) Father HTN (hypertension) Diabetes Leukemia Paternal Grandmother Intestinal cancer Other Alcoholism Social History Housing: Apartment Alcohol intake: never Patient Tobacco Use Status: Never used Tobacco e-Cigarette/Vaping Use: Never Used Second Hand Smoke Exposure: Yes Advance Directives Date on File: 07/02/20 Patient : No service: No Current occupational status: employed and student Current occupation: [employer] Current occupational exposures/hazards: Yes Cognitive needs: No Hearing needs: No Vision needs: No Female Reproductive History Menstrual Age of Menarche: 10 Duration of menses: 6-7 days Date of last menstrual period: 01/16/25 control method: none Total pregnancies: 1 Full term: 1 Date of last pap smear: 11/21/22 Date of Mammogram: 01/02/23 (bi rad 1) Physical Exam Vital Signs: Last Vital Signs BP 114/72 02/11/25 15:19 BMI result Body Mass Index 30.0 Const General: healthy appearing, comfortable, no acute distress, well developed and alert Nutritional Appearance: average body habitus Orientation/consciousness: patient oriented x3 Limitations: no limitations HEENT Head: Yes normocephalic Neck Neck: Yes normal visual inspection Chest Chest palpation & inspection: normal inspection of the chest Breast/axilla inspection: normal inspection of the breasts and normal inspection of the axillae Breast/axilla palpation: normal palpation of the breasts and normal palpation of the axillae Resp Effort & Inspection: normal respiratory effort GI Inspection: Yes normal to inspection, No Abdominal wall edema and No distended Palpation (GI): Soft to palpation and nontender Other: Well healed low transverse scar. Vagina pink and moist there is a kind of a clear whitish discharge cervix nulliparous pink clear with ending fertile type mucus.. Cervix long close thick mobile nontender uterus anteverted mobile nontender adnexa nonenlarged nontender good muscle tone. General: Yes bladder normal to palpation External Female Exam: normal external appearance and normal appearance of the urethra Speculum Exam - Vagina: normal appearance of the vagina, normal palpation and normal vaginal discharge Speculum Exam - Cervix: normal appearance of the cervix, normal palpation and nontender Bimanual exam- vagina & uterus: normal bimanual exam, normal palpation, uterine size normal, bladder normal to palpation, consistency normal, normal palpation, uterine mobility normal, uterine shape normal, No Cervical tenderness present, non-tender and no cervical motion tenderness Bimanual Exam- Adnexa, other: normal adnexae, no masses, normal and No adnexal tenderness Neuro General: patient oriented x3 Assessment & Plan Assessment & Plan (1) HTN (hypertension): Code(s): I10 - Essential (primary) hypertension Category: Medical (2) Encounter for screening examination for sexually transmitted disease: Code(s): Z11.3 - Encounter for screening for infections with a predominantly sexual mode of transmission Category: Medical (3) Well woman exam with routine gynecological exam: Code(s): Z01.419 - Encounter for gynecological examination (general) (routine) without abnormal findings Category: Medical (4) Breast cancer screening: Code(s): Z12.39 - Encounter for other screening for malignant neoplasm of breast Category: Medical Plan -----Discussed in this visit the following: healthy balanced diet, regular and consistent exercise, getting recommended health screens, doing the best she can for her particular health concerns, kegel exercises, pap smear screening and followup recommendations, mammography screening and SBE, normal changes in cycles in her life stage--- . Mammogram ordered. Testing ordered for HIV hep B hep C and syphilis testing was done for gonorrhea chlamydia trich as well as BV and yeast during the visit she is not due for Pap smear as her last 1 was negative in 2022 and she has never had an abnormal Pap per se other than having the trich show up on it. Reviewed her which was complicated by gestational diabetes and preeclampsia. If she had sex she would use condoms she is not planning on being sexually active right now. I gave her the pamphlet for the portal. RTC 1 year. Orders: Orders Hepatitis C Antibody Today I10 - Essential (primary) hypertension, Z01.419 - Encounter for gynecological examination (general) (routine) without abnormal findings, Z11.3 - Encounter for screening for infections with a predominantly sexual mode of transmission, Z12.39 - Encounter for other screening for malignant neoplasm of breast Hepatitis B Surface Antigen Today I10 - Essential (primary) hypertension, Z01.419 - Encounter for gynecological examination (general) (routine) without abnormal findings, Z11.3 - Encounter for screening for infections with a predominantly sexual mode of transmission, Z12.39 - Encounter for other screening for malignant neoplasm of breast HIV Ab/Ag Today I10 - Essential (primary) hypertension, Z01.419 - Encounter for gynecological examination (general) (routine) without abnormal findings, Z11.3 - Encounter for screening for infections with a predominantly sexual mode of transmission, Z12.39 - Encounter for other screening for malignant neoplasm of breast Syphilis Screen Today I10 - Essential (primary) hypertension, Z01.419 - Encounter for gynecological examination (general) (routine) without abnormal findings, Z11.3 - Encounter for screening for infections with a predominantly sexual mode of transmission, Z12.39 - Encounter for other screening for malignant neoplasm of breast MM tomosynthesis screening BI Today Z12.31 - Encounter for screening mammogram for malignant neoplasm of breast Coding Level of Care Code Est Pt Prev Care 40-64y(13888) Diagnoses HTN (hypertension) I10 Encounter for screening examination for sexually transmitted disease Z11.3 Well woman exam with routine gynecological exam Z01.419 Breast cancer screening Z12.39
[2025-02-11 15:19] VITALS: BP 114/72
--- OUTSIDE RECORDS SUMMARY | 2025-02-11 21:23 | XMS_ITS | Clinical Summary ---
Author Organization [employer] Address [address] [facility] [address] [place] [address] Care Team Providers Care Investment Director Name Role Phone Unavailable Primary Care Provider [...] Date Last Done Comments Depression Screening 1984 Disability Screening 1984 Alcohol/Substance Use Screening 1996 Tobacco Screening 1996 Family Planning (PISQ) 01/04/1999 Hepatitis B Vaccines (1 of 3 - 19+ 3-dose series) 01/04/2003 Pap Smear 06/15/2023 06/15/2020 Mammogram 2024 COVID-19 Vaccine ( - season) 2024 10/15/2020 Influenza Vaccine (#1) 2024 Cervical Cancer Screening 06/15/2025 HPV/Cotest 06/15/2025 [...] patient's age to complete this topic Meningococcal B Vaccine Aged Out No l onger eligible based on patient's age to complete this topic Meningococcal Vaccine Aged Out No coleen cole eligible based on patient's age to complete this topic Pneumococcal Vaccine: Pediatrics (0 to 5 Years) and At-Risk Patients (6 to 49) Years Aged Out No longer eligible based on [...] 1:53 PM EST) Clinical Information: None given [facility] COMMENT SEE COMMENT [facility] Comment: EXPLANATORY NOTE: The Pap is a screening test for cervical cancer. It is not a diagnostic test and is subject to false negative and false positive results. It is most reliable when a satisfactory sample, regularly obtained, is submitted with relevant clinical findings and history, and when the Pap result is evaluated along with historic and current clinical information. 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 [facility] LMP: NONE [facility]IVEN [facility] Prev. BX: NONE [facility]IVEN [facility] Prev. PAP: NONE GIVEN [facility] SOURCE: None given [facility] Statement Of Adequacy: SEE COMMENT [facility] Comment: Satisfactory for evaluation. Endocervical/transformation zone component present. 06/15/2020 1:53 PM EST [facility] LAB PATHOLOGY ORDERABLES Final Result Performing Organization Address [facility] Phone Number [facility] [address] * HPV mRNA E6/E7 (06/15/2020 1:53 PM EST) HPV nRNA E6/E7 Not Detected Not Detected [facility] Comment: Methodology: On Site Soil Evaluator-Mediated Amplification This assay detects E6/E7 viral messenger RNA (mRNA) from 14 high-risk HPV types (16,18,31,33,35,39,45,51,52,56,58,59,66,68). The analytical performance characteristics of this assay have been determined by [employer] The modifications have not been cleared or approved by the FDA. This assay has been validated pursuant to the CLIA regulations and is used for clinical purposes. For additional information, please refer to [email or web address] (This link if provided for information/ educational purposes only.) 06/15/2020 1:53 PM EST Sh[facility]hi [facility] LAB BLOOD ORDERABLES Giovanna l Result Performing Organization Address [facility] de Phone Number [facility] [address] from Last 3 Months or Most Recently Relevant to Health Maintenance
--- OUTSIDE RECORDS SUMMARY | 2025-02-11 21:23 | XMS_ITS | Clinical Summary ---
Author Organization [facility] Address [address] [place] [address] Care Team Providers Care Superintendent Stevedoring Name Role Phone Pcp, No Primary Care [...] 20 tablet 01/21/20 24 Active Vit-Fe Fumarate-FA (M- Plus) 27-1 MG TabIndications:Fir st trimester TAKE [...] H&P completed [ ] Induction/ teaching with brewing technician & Plan (01/21/2024 5:03 PM EDT): - [...] Date Type Department Care Team Description 11/24/2024 [facility] [address] [place] [id number] Robyn Mathew, First trimester ; Hypertension, unspecified type from Last 3 Months [...] series) 01/04/2003 Pap Smear (Ages 21-65) 01/04/2005 Mammogram 2024 Influenza Vaccine 11/21/2024 COVID-19 Vaccine (1 - 2023-2 5 season) 2024 HIV Screening Completed 12/31/2023 Hepatitis C Virus Screening Completed 12/31/2023 HPV Vaccines (No Doses Required) Completed Pneumococcal Vaccine: Pediat alejandro (0-5 Years) and At-Risk Patients (6 to 49 Years) Aged Out No longer eligible b ased on patient's age to complete this topic Goals Goal Patient Goal Type Associated Problems Recent Progress Patient-Stated? Author Reminders Care Plan OB Reminders No Tegan Balbuena commissioned fire officer Procedure Name Priority Date/Time Associated Diagnosis Comments [...] 0.79 S/CO ratio 01/01/2024 10:44 AM EDT [facility] Hepatitis C Antibody Interpretation Nonreactive Nonreactive 01/01/2024 10:44 AM EDT [facility] Comment:Antibodies to HCV no t detected. This does not exclude the possibility of exposure to HCV. Blood (Plasma/Serum) 12/31/2023 11:23 AM EDT 12/31/2023 4:34 PM EDT Robyn Bhatteufemiavahid DO LAB BLOOD ORDERABLES Final Result Performing Organization Address [facility]/ZIP Co de Phone Number [facility] [address] [place] [address], * HIV 1/2 Ag/Ab CMIA Reflex to Confirmation (12/31/2023 11:23 AM EDT) HIV 1/2 Ag/Ab CMIA Nonreactive Nonreactive 01/01/2024 10:44 AM EDT [facility] Comment: Results show no evidence of infection by HIV 1/2. If clinically indicated, repeat CMIA or test by nucleic acid amplification. HIV 1/2 Antigen/Antibody CMIA reflex to confirmation AND HIV-1 RNA viral load recommended in patients who are taking or have recently taken PrEP. Blood Serum specimen / Unknown 12/31/2023 11:23 AM EDT 12/31/2023 4:34 PM EDT Robyn Bhatteufemiavahid DO LAB BLOOD ORDERABLES Final Result [facility] [address] [place] [address], from Last 3 Months or Most Recently Relevant to Health Maintenance Additional Health Concerns Active Problems Noted Date Diagnosed Date OB Reminders 12/31/2023 Advance Directives * Full Code (Latest Code Status on File) Date Activated Date Inactivated Comments 02/20/2021 1:19 AM Care Teams Superintendent Stevedoring Relationship Specialty Start Date End Date Pcp, No PCP - General General Medicine 02/21/21
--- OUTSIDE RECORDS SUMMARY | 2025-02-11 21:23 | XMS_ITS | Encounter Summary ---
Author Organization [employer] Address [address] [facility] [address] [place] [address] Care Team Providers Care Director Of Student Aid Name Role Phone Linda Faustin MD Primary Care Provider [phone] Encounter Details Date Type Department Care Team ([facility] st Contact Info) Description 05/24/2022 Telephone [facility] [address] [place], [place] [phone] Linda Faustin MD [address] [place] [address] Social History Tobacco Use Types Packs/Day Years [...] on filedocumented in this encounter Care Teams Director Of Student Aid Relationship Specialty Start Date End Date Linda Faustin MD [address] [place] [id number] PCP - General Family Medicine 04/30/13 10/25/23 documented as of this encounter
== END 2025-02-11 17:33 | disposition home or self-care (01) ==
LOC: HO.HWSM 15:08
PROVIDERS: PCP Nurse Practitioner Family; Visit Provider Advanced Practice Midwife
DX: Z01.419 Encounter for gynecological examination (general) (routine) without abnormal findings (principal); I10 Essential (primary) hypertension; Z11.3 Encounter for screening for infections with a predominantly sexual mode of transmission; Z12.39 Encounter for other screening for malignant neoplasm of breast
CPT/HCPCS: 99396; 99459

== ENCOUNTER 2025-02-11 15:07 | Outpatient (REF) | payer MEDICARE, MEDICAID, SELFPAY ==
[2025-02-14 05:15] LABS: Bacterial Vaginosis PCR POSITIVE (Negative); Candida Group PCR NOT DETECTED (Not Detect); Candida glab krusei PCR NOT DETECTED (Not Detect); Trichomonas vaginalis PCR NOT DETECTED (Not Detect)
[2025-02-14 05:45] LABS: CT PCR NOT DETECTED (Not Detect.); NG PCR NOT DETECTED (Not Detect.)
== END 2025-02-11 15:08 | disposition home or self-care (01) ==
LOC: HO.LNP 15:07
PROVIDERS: PCP Nurse Practitioner Family; Visit Provider Advanced Practice Midwife
DX: Z01.419 Encounter for gynecological examination (general) (routine) without abnormal findings (principal); Z20.2 Contact with and (suspected) exposure to infections with a predominantly sexual mode of transmission; I10 Essential (primary) hypertension; Z79.899 Other long term (current) drug therapy
CPT/HCPCS: 81515; 87491; 87591; 99396

== ENCOUNTER 2025-02-11 15:57 | Outpatient (REF) | payer MEDICARE, MEDICAID, SELFPAY | END 2025-02-11 15:58 | disposition home or self-care (01) | LOC: HO.LAB 15:57 | PROVIDERS: Visit Provider Advanced Practice Midwife | DX: Z13.89 Encounter for screening for other disorder (principal) ==

== ENCOUNTER 2025-03-30 15:22 | Outpatient (AMB) | payer MEDICARE, MEDICAID, SELFPAY ==
--- NOTE | 2025-03-30 15:23 | MHC.PC.OV ---
Vital Signs 03/30/25 15:29 Height 5 ft 4 in Weight 175 lb 6 oz BMI 30.1 BP 148/89 H Blood Pressure Location Rt brachial Position Sitting Respiration 16 Pulse 63 Pulse Source Pulse Oximeter Temp 97.9 F Temp Source Oral Pulse Oximetry (%) 99 Oxygen Delivery Method Room Air Intake Visit Reasons: coughing, congestion, anxiety Intake Note: patient here c/o coughing, congestion and anxiety Inspector Canned Food Reconditioning Required: No Is last menstrual period known: Yes Last menstrual period: 03/21/25 Post menopausal: No Patient : No Allergies morphine (MORPHINE) Allergy (Unknown, Verified 03/30/25 15:36) HIVES Seasonal Allergies Adverse Reaction (Intermediate, Verified 03/30/25 15:36) Itchy Eyes Medication List - Last Reconciled 03/30/25 by Gilles Mendez CNP amlodipine 10 mg PO DAILY 30 days labetalol 200 mg PO Q12H 30 days Tobacco use date assessed: 03/30/25 Dental Screening Dental Screen Date: 03/30/25 Did you have a dental visit in the last 12 months?: Yes Did you have a dental problem in the last 6 months where you did not have access to dental care?: No Was dental information given to patient?: Patient has dentist HPI HPI Comments History of Present Illness Details 40-year-old female presents with complaints of anxiety and depression. She notes reports constant worry, low energy, lack of interest, lack of focus, forgetfulness, and hopelessness. She attributes her symptoms to stressors. She notes that she was on SSDI which was abruptly discontinued immediately before Thanksgi. She and her are currently unemployed. Her has been applying for jobs but, so far, has been unable to secure one. She is worried about her bills and the unknown. She finds it stressful in the home since her 's two older moved in and there is not much room to accommodate her baby. She intends to find a job but has her 8 months old son to care for. She was on psychotropic medications about 10 years ago but i didn't like how they made me feel. She adverse reactions of facial twitching on the medications which she was on briefly. She does not recall the name of the medications. She is followed by a therapist weekly. She wants to trial medication for her symptoms. She is not currently . [facility] Medical History (Updated 02/11/25 @ 15:42 by Jennifer Kraft CNM) delivery delivered Breast mass, right Family history of colon cancer Back pain Orbital fracture HTN (hypertension) Surgical History History of neck surgery Family History Mother HTN (hypertension) Father HTN (hypertension) Diabetes Leukemia Paternal Grandmother Intestinal cancer Other Alcoholism Social History Housing: Apartment Alcohol intake: never Patient Tobacco Use Status: Never used Tobacco e-Cigarette/Vaping Use: Never Used Second Hand Smoke Exposure: Yes Advance Directives Date on File: 07/02/20 Patient : No service: No Current occupational status: employed and student Current occupation: [employer] Current occupational exposures/hazards: Yes Cognitive needs: No Hearing needs: No Vision needs: No Female Reproductive History Menstrual Age of Menarche: 10 Date of last menstrual period: 03/21/25 Questionnaire PHQ-9 Over the last 2 weeks, how often have you been bothered by any of the following problems? 1. Little interest or pleasure in doing things: more than half the days 2. Feeling down, depressed, or hopeless: nearly every day 3. Trouble falling or staying asleep, or sleeping too much: several days 4. Feeling tired or having little energy: nearly every day 5. Poor appetite or overeating: several days 6. Feeling bad about yourself - or that you are a failure or have let yourself or your family down: several days 7. Trouble concentrating on things, such as reading the newspaper or watching television: not at all 8. Moving or speaking so slowly that other people could have noticed. Or the opposite - being so fidgety or restless that you have been moving around a lot more than usual: not at all 9. Thoughts that you would be better off or of hurting yourself in some way: not at all Total score: 11 Depression Screening Interpretation: Positive Depression Screening Follow-up: Existing condition Depression Screening Done: Yes 03543 - PHQ-9 Billing: Yes Source: Developed by Drs. Jeovany Madsen, Jie BRadhames Gant and colleagues, with an educational lou from [employer]. Thrive Questionnaire Date Thrive assessed: 04/24/24 PORTIA-7 AMB Questionnaire PORTIA-7 Date PORTIA - 7 assessed: 03/30/25 Feeling nervous, anxious, or on edge: 3 = Nearly every day Not being able to stop or control worryin = Nearly every day Worrying too much about different things: 3 = Nearly every day Trouble relaxin = Nearly every day Being so restless that it is hard to sit still: 3 = Nearly every day Becoming easily annoyed or irritable: 1 = Several days Feeling afraid as if something awful might happen: 3 = Nearly every day Total PORTIA-7 score (0-4 normal; 5-9 mild; 10-14 moderate; 15-21 severe): 19 Source: Developed by Drs. Jeovany Madsen, Radhames Sharp and colleagues, with an educational lou from [employer]. PORTIA-7 Assessment Billing PORTIA-7 Assessment Tool: PORTIA-7 Assessment 40386 Review of Systems Const Details: Const Denies chills, Denies fatigue, Denies fever(s), Denies headache(s) and Denies weakness ENT Denies dizziness and Denies headache(s) Card Denies chest pain, Denies lightheadedness, Denies dyspnea and Denies other (Palpitations) Resp Denies cough, Denies dyspnea, Denies wheezing and Denies other ( shortness of breath) GI Denies abdominal pain, Denies melena, Denies hematochezia, Denies change in bowel habits, Denies dyspepsia and Denies nausea Denies hematuria and Denies dysuria Musc Denies abnormal gait, Denies myalgias, Denies arthralgias, Denies numbness and Denies tingling Skin/Breast Denies rash, Denies unusual bruising and Denies wounds Neuro Denies abnormal gait, Denies dizziness, Denies headache(s), Denies numbness, Denies Sensory deficit (Neuro), Denies tingling and Denies weakness Psych Reports anxiety, Reports depression, Reports forgetfulness Endo Denies cold intolerance, Denies fatigue, Denies heat intolerance, Denies polydipsia and Denies polyuria Aller/Immun Denies wheezing Physical exam (Primary Care) Vital Signs: Last Vital Signs Temp 97.9 F 03/30/25 15:29 Pulse 63 03/30/25 15:29 Resp 16 03/30/25 15:29 BP 148/89 H 03/30/25 15:29 Pulse Ox 99 03/30/25 15:29 Oxygen Delivery Method Room Air 03/30/25 15:29 BMI result Body Mass Index 30.1 Tobacco/Smoking Status: Tobacco use Status Tobacco use date assessed 03/30/25 03/30/25 15:36 Patient Tobacco Use Status Never used Tobacco 03/30/25 15:26 e-Cigarette/Vaping Use Never Used 03/30/25 15:26 PHQ-9: PHQ-9 Score PHQ-9: Total score 11 03/30/25 15:37 Depression Screening Interpretation: Positive Depression Screening Follow-up: Existing condition Thrive Assessment: Date of Thrive Assessment Date Thrive assessed 04/24/24 03/30/25 15:26 Const Other: General: no acute distress and well developed Nutritional Appearance: well nourished Orientation/consciousness: patient oriented x3 HENMT Head: Yes normocephalic and Yes atraumatic Eyes General: appearance normal, both eyes and all related structures Pupils: Equal, round and reactive pupils present EOM: EOMs intact bilaterally Resp Effort & Inspection: normal respiratory effort Auscultation: clear to auscultation bilaterally Cardio Rate: regular rate Rhythm: regular rhythm Heart sounds: S1 normal heart sound present, S2 normal heart sound present, no gallops, no murmurs and no rubs Extrem General: Yes normal to inspection, No edema and No calf tenderness Skin General: warm and dry. Normal skin color. Normal skin turgor Neuro General: patient oriented x3, gait normal and no focal neuro deficit Cranial nerves: Yes Equal, round and reactive pupils present Cognition (Neuro): normal cognition Gait exam (Neuro): Normal gait present Sensory Exam: No Sensory deficit (Neuro) Psych Appearance: grossly normal Mood: depressed Affect: normal affect Attitude: cooperative Thought process: Normal thought process present Coding Level of Care Code Est Pt Level 4 (42489) Diagnoses Anxiety and depression F41.9; F32.A HTN (hypertension) I10 Additional Codes PORTIA-7 Assessment Billing - PORTIA-7 Assessment Tool: PORTIA-7 Assessment 68020 ([id number]) PHQ-9 - 50320 - PHQ-9 Billing: Yes ([id number]) Assessment & Plan Assessment & Plan (1) Anxiety and depression: Code(s): F41.9 - Anxiety disorder, unspecified; F32.A - Depression, unspecified Category: Medical Plan: 40-year-old female presents with complaints of anxiety and depression. She notes reports constant worry, low energy, lack of interest, lack of focus, forgetfulness, and hopelessness. She attributes her symptoms to stressors. She notes that she was on SSDI which was abruptly discontinued immediately before Thanksgi. She and her are currently unemployed. Her has been applying for jobs but, so far, has been unable to secure one. She is worried about her bills and the unknown. She finds it stressful in the home since her 's two older moved in and there is not much room to accommodate her baby. She intends to find a job but has her 8 months old son to care for. She was on psychotropic medications about 10 years ago but i didn't like how they made me feel. She adverse reactions of facial twitching on the medications which she was on briefly. She does not recall the name of the medications. She is followed by a therapist weekly. She wants to trial medication for her symptoms. She is not currently . PHQ-9 and PORTIA-7 scores revealed moderate depression and severe anxiety respectively. Escitalopram 10 mg daily ordered; advised to take as prescribed. Clonidine 0.1 mg twice daily ordered for anxiety; advised to take as prescribed. Instructed on the risks, benefits, potential adverse reactions of the medications. Continue to follow-up with therapist. Return in 2 weeks or sooner with worsening or new symptoms. Verbalized understanding and agreed with the plan. (2) HTN (hypertension): Code(s): I10 - Essential (primary) hypertension Category: Medical Plan: Resting blood pressure is 148/89, above goal of less than 140/90. Likely due to anxiety and depression. Continue current treatment regimen. She is now on clonidine for anxiety which may also target her blood pressure. Low-sodium diet encouraged. Follow-up in 2 weeks. Verbalized understanding and agreed with the plan. Medications: New escitalopram oxalate 10 mg PO DAILY 30 tabs 1RF 30 days clonidine HCl 0.1 mg PO BID PRN 30 tabs 0RF anxiety
[2025-03-30 15:29] VITALS: BP 148/89; PULSE 63; RESP 16; TEMP 36.6; O2SAT 99; BMI 30.1
--- OUTSIDE RECORDS SUMMARY | 2025-03-31 00:52 | XMS_ITS | Clinical Summary ---
Author Organization [employer] Address [address] [facility] 7t [place] [address] Care Team Providers Care Aviation Electronic Warfare Operator Name Role Phone Unavailable Primary Care Provider [...] 06/15/2023 06/15/2020 Mammogram 2024 COVID-19 Vaccine ( season) 2024 10/15/2020 Influenza Vaccine (#1) 2024 Cervical Cancer Screening 06/15/2025 HPV/Cotest 06/15/2025 06/15/2020, 12/05/2016 Zoster Vaccines (1 of 2) 01/04/2034 DTaP/Tdap/Td Vaccines (10 - Td or Tdap) 05/20/2034 05/20/2024, 03/18/2019, 12/30/2011, Additional history exists RSV Patients and Patients Aged 60 years [...] 1:53 PM EST) Clinical Information: None given [facility] COMMENT SEE COMMENT [facility] ON [...] along with historic and current clinical information. Food Safety Coordinator : SEE COMMENT [facility] Comment: GSG, CT(ASCP) CT screening location: [place] [address] Interpretation/R esult: Negative for intraepithelial lesion or malignancy. [facility] LMP: NONE GIVEN [facility] Prev. BX: NONE GIVEN [facility] Prev. PAP: NONE GIVEN [facility]OUND[facility] ON LAB [facility] SOURCE: None given [facility] Statement Of Adequacy: SEE COMMENT [facility] Comment: Satisfactory for evaluation. Endocervical/transformation zone component present. 06/15/2020 1:53 PM EST Shanthi OAKES LAB PATHOLOGY ORDERABLES Final Result Performing Organization Address [facility] Phone Number [facility] [address] * HPV mRNA E6/E7 (06/15/2020 1:53 PM EST) HPV nRNA E6/E7 Not Detected Not Detected [facility] Comment: Methodology: Screen Tender-Mediated Amplification This assay detects E6/E7 viral messenger RNA (mRNA) from 14 high-risk HPV types (16,18,31,33,35,39,45,51,52,56,58,59,66,68). The analytical performance characteristics of this assay have been determined by [employer]. The modifications have not been cleared or approved by the FDA. This assay has been validated pursuant to the CLIA regulations and is used for clinical purposes. For additional information, please refer to http://education.[employer]/IST247u7 (This link if provided for information/ educational purposes only.) 06/15/2020 1:53 PM EST Shanthi OAKES LAB BLOOD ORDERABLES Giovanna l Result Performing Organization Address [facility] de Phone Number [facility] [address] from Last 3 Months or Most Recently Relevant to Health Maintenance
--- OUTSIDE RECORDS SUMMARY | 2025-03-31 00:52 | XMS_ITS | Clinical Summary ---
Author Organization [facility] Address [address] [place] [address] Care Team Providers Care Handmade Tile Artist Name Role Phone Pcp, No Primary Care [...] H&P completed [ ] Induction/ teaching with numberer and wirer & Plan (01/21/2024 5:03 PM EDT): - [...] Has followed with neurosurgery in the past. Family History Medical History Relation Name Comments [...] Reminders Care Plan OB Reminders Tegan Armstrong RN Procedures Procedure Name Priority Date/Time Associated [...] Mathew DO LAB BLOOD ORDERABLES Final Result [facility] [address] [place] [address], * HIV 1/2 Ag/Ab CMIA Reflex to [...] 11:23 AM EDT 12/31/2023 4:34 PM EDT us Robyn Mathew DO LAB BLOOD ORDERABLES Final Result [facility] [address] [place] [address], from Last 3 Months or Most Recently Relevant to Health Maintenance Additional Health Concerns Active Problems Noted Date Diagnosed Date OB Reminders 12/31/2023 Advance Directives * Full Code (Latest Code Status on File) Date Activated Date Inactivated Comments 02/20/2021 1:19 AM Care Teams Handmade Tile Artist Relationship Specialty Start Date End Date Pcp, No PCP - General General Medicine 02/21/21
--- OUTSIDE RECORDS SUMMARY | 2025-03-31 00:52 | XMS_ITS | Encounter Summary ---
Author Organization [employer] Address [address] [facility] 7t [place] [address] Care Team Providers Care Washing Machine Operator Name Role Phone Linda Faustin MD Primary Care Provider [phone] Encounter Details Date Type Department Care Team ([facility] st Contact Info) Description 05/24/2022 Telephone C [facility] [address] [place], [place] [phone] Linda Faustin MD [address] [place] [address] Social History Tobacco Use Types Packs/Day Years [...] on filedocumented in this encounter Care Teams Washing Machine Operator Relationship Specialty Start Date End Date Linda Faustin MD [address] [place] [id number] PCP - General Family Medicine 04/30/13 10/25/23 documented as of this encounter
== END 2025-03-30 15:59 | disposition home or self-care (01) ==
LOC: HO.HMCFM 15:22
PROVIDERS: PCP Nurse Practitioner Family; Visit Provider Nurse Practitioner Family
DX: F41.9 Anxiety disorder, unspecified (principal); F32.A Depression, unspecified; I10 Essential (primary) hypertension

== ENCOUNTER → 2025-03-30 15:22 | Outpatient (BNVA) | payer MEDICARE, MEDICAID, SELFPAY | PROVIDERS: PCP Nurse Practitioner Family; Visit Provider Nurse Practitioner Family | DX: I10 Essential (primary) hypertension (principal); F41.9 Anxiety disorder, unspecified; F32.A Depression, unspecified; Z13.31 Encounter for screening for depression; Z13.39 Encounter for screening examination for other mental health and behavioral disorders | CPT/HCPCS: 96127; 99212 ==